=== PATIENT | female | born 1960 | race Caucasian/White ===

== ENCOUNTER → 2016-12-30 | Outpatient (CLI) | payer MEDICARE ==
[2016-12-30 17:30] LABS: ALBUMIN 3.5 GM/DL (3.2-5.2); ALBUMIN/GLOBULIN RATIO 1.06 (1.00-1.93); BILIRUBIN,TOTAL 0.3 MG/DL (0.2-1.0); CALCIUM LEVEL 8.7 MG/DL (8.5-10.1); CREATININE FOR GFR 1.13 MG/DL (0.55-1.02); FREE T4 1.05 NG/DL (0.76-1.46); GLOMERULAR FILTRATION RATE 52.6 (>51); POTASSIUM SERUM 4.5 MEQ/L (3.5-5.1); TOTAL PROTEIN 6.8 GM/DL (6.4-8.2)
== END ==
LOC: M WUC 11:45
PROVIDERS: ATTEND Family Medicine
DX: I10 Essential (primary) hypertension (principal); R73.01 Impaired fasting glucose; M47.816 Spondylosis without myelopathy or radiculopathy, lumbar region

== ENCOUNTER → 2017-05-17 | Outpatient (CLI) | payer MEDICARE ==
--- NOTE | 2017-05-17 16:18 | REPMRS ---
Patient History The patient states she has not had a clinical breast exam in over a year. Patient is postmenopausal and is nulliparous. Family history of breast cancer in mother at age 65 and colorectal cancer in maternal grandmother at age 50 or over. Benign excisional biopsy of the left breast, October 28, 1998. Digital Woman Screen Mammo: May 17, 2017 - Exam #: [id number] Bilateral CC and MLO view(s) were taken. Technologist: Melisa Figueroa, Technologist Prior study comparison: May 26, 2016, digital woman screen mammo performed at [facility] [address] [facility]. June 01, 2015, digital woman screen mammo performed at [facility] [address] to [facility]. FINDINGS: There are scattered fibroglandular densities. There has been no change in the appearance of the mammogram from the prior studies. There is a mild amount of residual fibroglandular tissue which is fairly symmetric. There is no interval development of dominant mass, architectural distortion, or clustered microcalcification suggestive of malignancy. ASSESSMENT: BI-RADS/ACR category 1 mammogram. Negative. Recommendation Routine screening mammogram in 1 year (for women over age 40). This mammogram was interpreted with the aid of an FDA-approved computer-aided dectection system. Electronically Signed By: Ashwin Chapin MD 05/17/17 [id number]
== END ==
LOC: M WHC 14:26
PROVIDERS: ATTEND Family Medicine
DX: Z12.31 Encounter for screening mammogram for malignant neoplasm of breast (principal)

== ENCOUNTER → 2017-05-22 | Outpatient (CLI) | payer MEDICARE ==
[2017-05-22 13:12] LABS: BASO % 0.5 % (0.0-1.0); EOS # 0.1 K/mm3 (0.0-0.50); EOS % 0.6 % (0.0-3.0); LARGE UNSTAINED CELL # 0.1 K/mm3 (0.0-0.4); LARGE UNSTAINED CELL % 1.1 % (0.0-4.0); LYMPH # 2.7 K/mm3 (1.5-4.5); LYMPH % 24.6 % (24.0-44.0); MEAN CORPUSCULAR VOLUME 90.8 fl (80.0-96.0); MONO # 0.6 K/mm3 (0.0-0.8); MONO % 5.8 % (0.0-5.0); NEUTROPHILS # 7.1 K/mm3 (1.8-7.7); NEUTROPHILS % 67.4 % (36.0-66.0); PLATELET COUNT, AUTOMATED 308 k/mm3 (150-450); RED CELL DISTRIBUTION WIDTH 13.9 % (11.5-14.5); WHITE BLOOD COUNT 10.5 K/mm3 (4.0-10.0)
[2017-05-22 14:00] LABS: ALBUMIN 3.5 GM/DL (3.2-5.2); ALBUMIN/GLOBULIN RATIO 1.03 (1.00-1.93); BILIRUBIN,TOTAL 0.3 MG/DL (0.2-1.0); CREATININE FOR GFR 1.01 MG/DL (0.55-1.02); GLOMERULAR FILTRATION RATE 59.9 (>51); POTASSIUM SERUM 4.4 MEQ/L (3.5-5.1); TOTAL PROTEIN 6.9 GM/DL (6.4-8.2)
== END ==
LOC: M WUC 10:58
PROVIDERS: ATTEND Family Medicine
DX: N18.2 Chronic kidney disease, stage 2 (mild) (principal); R73.01 Impaired fasting glucose; E55.9 Vitamin D deficiency, unspecified

== ENCOUNTER → 2017-05-29 | Outpatient (REF) | payer MEDICARE ==
[2017-05-29 19:37] LABS: ALBUMIN 3.8 GM/DL (3.2-5.2); ALBUMIN/GLOBULIN RATIO 1.23 (1.00-1.93); ALKALINE PHOSPHATASE 66 U/L (45-117); ALT/SGPT 23 U/L (12-78); ANION GAP 8 MEQ/L (8-16); AST/SGOT 11 U/L (15-37); BILIRUBIN,TOTAL 0.4 MG/DL (0.2-1.0); BLOOD UREA NITROGEN 15 MG/DL (7-18); CALCIUM LEVEL 9.4 MG/DL (8.5-10.1); CARBON DIOXIDE LEVEL 27 MEQ/L (21-32); CHLORIDE LEVEL 104 MEQ/L (98-107); CHOLESTEROL LEVEL 204 MG/DL (<200); CREATININE FOR GFR 1.06 MG/DL (0.55-1.02); GLOMERULAR FILTRATION RATE 56.7 (>51); GLUCOSE, FASTING 86 MG/DL (70-105); POTASSIUM SERUM 4.7 MEQ/L (3.5-5.1); SODIUM LEVEL 139 MEQ/L (136-145); TOTAL PROTEIN 6.9 GM/DL (6.4-8.2); TRIGLYCERIDES LEVEL 388 MG/DL (<150)
[2017-06-07 10:22] LABS: Codeine Negative (.); Hydrocodone 10.4 ng/mL (.); Hydromorphone Negative (.); Morphine Negative (.)
== END ==
LOC: M SFHCPLAZ 14:42
PROVIDERS: ATTEND Family Medicine
DX: E78.5 Hyperlipidemia, unspecified (principal); R73.01 Impaired fasting glucose; E55.9 Vitamin D deficiency, unspecified; M17.0 Bilateral primary osteoarthritis of knee; M47.816 Spondylosis without myelopathy or radiculopathy, lumbar region
CPT/HCPCS: 36415; 80053; 80061; 80307; 82306; 82550; 83970; 86140; 86803; 87899; G0463

== ENCOUNTER → 2017-06-05 | Outpatient (CLI) | payer MEDICARE ==
--- NOTE | 2017-06-05 14:56 | REP ---
BILATERAL KNEE, SIX VIEWS: HISTORY: Osteoarthritis. RIGHT KNEE, THREE VIEWS: There is no acute fracture or dislocation. There is narrowing of the joint spaces with associated osteophyte formation. Ossified density is present in the joint space consistent with loose bodies. IMPRESSION: Degenerative change as described above. LEFT KNEE, THREE VIEWS: There is no acute fracture or dislocation. There is narrowing of the joint spaces with associated osteophyte formation. IMPRESSION: Degenerative change as described above. Signed by Steven Henriquez MD 06/05/2017 03:02 P
--- NOTE | 2017-06-05 15:00 | REP ---
BILATERAL KNEES STANDING, TWO VIEWS: COMPARISON: 06/05/2017 There is narrowing of the knee joint space with associated osteophyte formation. Ossified density is present in the joint space consistent with a loose body. There is further narrowing of the medial knee joint space with standing. Left knee, one view: There is narrowing of the knee joint space with associated osteophyte formation. There is further narrowing of the medial knee joint space with standing. IMPRESSION: Degenerative change as described above. Signed by Steven Henriquez MD 06/05/2017 03:02 P
--- NOTE | 2017-06-05 15:10 | REP ---
Right wrist series: Four views. History: Osteoarthritis. Right wrist pain. Findings: Four views of the right wrist demonstrate overall normal mineralization. There is minimal radiocarpal and first carpal-metacarpal spurring. Lateral view shows dystrophic soft-tissue calcification at the volar aspect of the radiocarpal articulation. No erosive changes seen. No fracture is noted. Impression: Mild radiocarpal osteoarthritis with some dystrophic calcification at the volar aspect of the radiocarpal joint. No fracture or erosive change seen. Signed by Noel Hills MD 06/05/2017 03:51 P
== END ==
LOC: M WUC 14:01
PROVIDERS: ATTEND Family Medicine
DX: M19.90 Unspecified osteoarthritis, unspecified site (principal)

== ENCOUNTER → 2017-09-22 | Outpatient (CLI) | payer MEDICARE ==
[2017-09-22 13:44] LABS: BASO # 0.1 10^3/uL (0.0-0.2); BASO % 0.6 % (0.0-1.0); EOS # 0.2 10^3/uL (0.0-0.50); EOS % 2.1 % (0.0-3.0); IMMATURE GRANULOCYTE % 0.4 % (0-0); LYMPH # 2.9 10^3/uL (1.5-4.5); LYMPH % 36.2 % (24.0-44.0); MEAN CORPUSCULAR HEMOGLOBIN 28.8 pg (27.0-33.0); MEAN CORPUSCULAR HGB CONC 31.9 g/dl (32.0-36.5); MEAN CORPUSCULAR VOLUME 90.2 fl (80.0-96.0); MONO # 0.7 10^3/uL (0.0-0.8); MONO % 8.3 % (0.0-5.0); NEUTROPHILS # 4.1 10^3/uL (1.8-7.7); NEUTROPHILS % 52.4 % (36.0-66.0); PLATELET COUNT, AUTOMATED 278 10^3/uL (150-450); RED CELL DISTRIBUTION WIDTH 13.8 % (11.5-14.5); WHITE BLOOD COUNT 7.9 10^3/uL (4.0-10.0)
[2017-09-22 13:57] LABS: ALBUMIN 3.5 GM/DL (3.2-5.2); ALBUMIN/GLOBULIN RATIO 1.03 (1.00-1.93); ALKALINE PHOSPHATASE 62 U/L (45-117); ALT/SGPT 20 U/L (12-78); ANION GAP 4 MEQ/L (8-16); AST/SGOT 11 U/L (15-37); BILIRUBIN,TOTAL 0.3 MG/DL (0.2-1.0); BLOOD UREA NITROGEN 15 MG/DL (7-18); CALCIUM LEVEL 9.2 MG/DL (8.5-10.1); CARBON DIOXIDE LEVEL 32 MEQ/L (21-32); CHLORIDE LEVEL 105 MEQ/L (98-107); CREATININE FOR GFR 0.99 MG/DL (0.55-1.02); GLOMERULAR FILTRATION RATE > 60.0 (>51); GLUCOSE, FASTING 89 MG/DL (70-105); POTASSIUM SERUM 4.7 MEQ/L (3.5-5.1); SODIUM LEVEL 141 MEQ/L (136-145); TOTAL PROTEIN 6.9 GM/DL (6.4-8.2)
== END ==
LOC: M WUC 12:22
PROVIDERS: ATTEND Family Medicine
DX: I12.9 Hypertensive chronic kidney disease with stage 1 through stage 4 chronic kidney disease, or unspecified chronic kidney disease (principal); E78.5 Hyperlipidemia, unspecified; N18.2 Chronic kidney disease, stage 2 (mild); R73.01 Impaired fasting glucose

== ENCOUNTER → 2017-10-17 | Outpatient (CLI) | payer MEDICARE ==
--- NOTE | 2017-10-17 15:41 | REP ---
MRI lumbar spine without contrast: History: Low back and bilateral leg pain, right side greater. Degenerative joint disease. Comparison MRI study is from February 13, 2010. This prior study showed disc herniations at L3-4 and L4-5 with moderate canal stenosis at L3-4 and neural foraminal narrowing at L4-5. Technique: Sagittal and axial T1 and T2-weighted scans are acquired in the usual fashion with and without fat saturation. Sequences include spin echo, turbo spin-echo, and STIR imaging sequences. Due to the pain and claustrophobia, the patient was unable to tolerate the completion of the exam and we were not able to get axial T2-weighted images. There is incomplete coverage of the L3-4 disc on the axial T1-weighted sequence. MRI findings: Lumbar vertebral body heights are preserved. Alignment is normal. There is no evidence of spondylolysis or spondylolisthesis. There are diffuse degenerative disc changes. These are most pronounced at L4-5. At L3-4, there is diffuse posterior disc bulging without thecal sac compression on sagittal images. Prior study showed a disc protrusion at this level, which appears to have largely resolved. There is still some central disc bulging. There is no neural foraminal narrowing. At L4-5, there is a persistent right paracentral disc protrusion with diffuse bulging of the remainder of the disc. There is bilateral neural foraminal stenosis at L4-5 due to disc bulging and facet osteoarthritic spurring. This is a little more prominent than on the prior study. The disc protrusion appears to be unchanged. No significant central canal stenosis. At L5-S1, there is no significant finding. The L2-3 and L1-2 level show borderline canal size developmentally, but no focal disc protrusion is appreciated. These findings are unchanged. Impression: Improvement noted at the L3-4 level where prior study showed a fairly sizable disc protrusion. This is largely resolved with some residual disc bulging. Persistent disc protrusion at L4-5, unchanged. Bilateral L4-5 neural foraminal narrowing, more pronounced. Developmentally somewhat small canal at L1-2 and L2-3, unchanged. Signed by Noel Hills MD 10/17/2017 03:47 P
== END ==
LOC: M RAD 09:59
PROVIDERS: ATTEND Family Medicine
DX: M47.816 Spondylosis without myelopathy or radiculopathy, lumbar region (principal)

== ENCOUNTER → 2018-01-23 | Outpatient (CLI) | payer MEDICARE ==
[2018-01-23 17:37] LABS: BASO # 0.1 10^3/uL (0.0-0.2); BASO % 0.7 % (0.0-1.0); EOS # 0.1 10^3/uL (0.0-0.50); EOS % 1.8 % (0.0-3.0); HEMATOCRIT 44.2 % (36.0-47.0); HEMOGLOBIN 13.9 g/dl (12.0-16.0); IMMATURE GRANULOCYTE % 0.3 % (0-3.0); LYMPH # 2.6 10^3/uL (1.5-4.5); LYMPH % 38.2 % (24.0-44.0); MEAN CORPUSCULAR HEMOGLOBIN 27.9 pg (27.0-33.0); MEAN CORPUSCULAR HGB CONC 31.4 g/dl (32.0-36.5); MEAN CORPUSCULAR VOLUME 88.8 fl (80.0-96.0); MONO # 0.5 10^3/uL (0.0-0.8); MONO % 7.8 % (0.0-5.0); NEUTROPHILS # 3.5 10^3/uL (1.8-7.7); NEUTROPHILS % 51.2 % (36.0-66.0); PLATELET COUNT, AUTOMATED 294 10^3/uL (150-450); RED BLOOD COUNT 4.98 10^6/uL (4.00-5.40); RED CELL DISTRIBUTION WIDTH 14.5 % (11.5-14.5); WHITE BLOOD COUNT 6.8 10^3/uL (4.0-10.0)
[2018-01-23 17:58] LABS: ALBUMIN/GLOBULIN RATIO 1.29 (1.00-1.93); ALKALINE PHOSPHATASE 64 U/L (45-117); ALT/SGPT 21 U/L (12-78); ANION GAP 8 MEQ/L (8-16); AST/SGOT 14 U/L (7-37); BILIRUBIN,TOTAL 0.3 MG/DL (0.2-1.0); BLOOD UREA NITROGEN 15 MG/DL (7-18); CALCIUM LEVEL 8.9 MG/DL (8.5-10.1); CARBON DIOXIDE LEVEL 30 MEQ/L (21-32); CHLORIDE LEVEL 105 MEQ/L (98-107); CREATININE FOR GFR 0.96 MG/DL (0.55-1.30); GLOMERULAR FILTRATION RATE > 60.0 (>51); GLUCOSE, FASTING 89 MG/DL (70-100); PHOSPHORUS LEVEL 3.4 MG/DL (2.5-4.9); SODIUM LEVEL 143 MEQ/L (136-145); TOTAL PROTEIN 7.1 GM/DL (6.4-8.2)
[2018-01-23 18:06] LABS: PTH INTACT 65.8 PG/ML (18.5-88.0); TOTAL 25(OH) VITAMIN D 30.9 NG/ML (30.0-100.0)
[2018-01-23 21:42] LABS: ESTIMATED AVERAGE GLUCOSE 123 MG/DL (60-110); HEMOGLOBIN A1c 5.9 %
[2018-01-25 14:57] LABS: INSULIN LEVEL 35.4 uIU/mL (2.6-24.9)
== END ==
LOC: M WUC 12:03
DX: E55.9 Vitamin D deficiency, unspecified (principal); N18.2 Chronic kidney disease, stage 2 (mild); R73.01 Impaired fasting glucose
CPT/HCPCS: 83525

== ENCOUNTER → 2018-05-18 | Outpatient (CLI) | payer OTHER | LOC: M WHC 12:57 | DX: Z12.31 Encounter for screening mammogram for malignant neoplasm of breast (principal) | CPT/HCPCS: 77067 ==

== ENCOUNTER → 2018-06-14 | Outpatient (REF) | payer OTHER ==
[2018-06-14 18:03] LABS: BASO # 0.1 10^3/uL (0.0-0.2); BASO % 0.5 % (0.0-1.0); EOS # 0.2 10^3/uL (0.0-0.50); EOS % 2.6 % (0.0-3.0); HEMATOCRIT 44.1 % (36.0-47.0); HEMOGLOBIN 14.4 g/dl (12.0-15.5); IMMATURE GRANULOCYTE % 0.5 % (0-3.0); LYMPH # 2.9 10^3/uL (1.5-4.5); LYMPH % 31.6 % (24.0-44.0); MEAN CORPUSCULAR HEMOGLOBIN 29.3 pg (27.0-33.0); MEAN CORPUSCULAR HGB CONC 32.7 g/dl (32.0-36.5); MEAN CORPUSCULAR VOLUME 89.8 fl (80.0-96.0); MONO # 0.7 10^3/uL (0.0-0.8); MONO % 7.2 % (0.0-5.0); NEUTROPHILS # 5.3 10^3/uL (1.8-7.7); NEUTROPHILS % 57.6 % (36.0-66.0); PLATELET COUNT, AUTOMATED 266 10^3/uL (150-450); RED BLOOD COUNT 4.91 10^6/uL (4.00-5.40); RED CELL DISTRIBUTION WIDTH 14.4 % (11.5-14.5); RETIC HEMOGLOBIN EQUIVALENT 33.9 pg (24-36); RETICULOCYTE # 87.9 10^9/L (17-77); RETICULOCYTE % 1.8 % (0.5-1.5); WHITE BLOOD COUNT 9.2 10^3/uL (4.0-10.0)
[2018-06-14 18:16] LABS: ALBUMIN 3.7 GM/DL (3.2-5.2); ALBUMIN/GLOBULIN RATIO 1.19 (1.00-1.93); ALKALINE PHOSPHATASE 69 U/L (45-117); ALT/SGPT 28 U/L (12-78); ANION GAP 7 MEQ/L (8-16); AST/SGOT 13 U/L (7-37); BILIRUBIN,TOTAL 0.4 MG/DL (0.2-1.0); BLOOD UREA NITROGEN 17 MG/DL (7-18); C REACTIVE PROTEIN QUANTITATIV < 0.30 MG/DL (0.00-0.30); CALCIUM LEVEL 8.7 MG/DL (8.5-10.1); CARBON DIOXIDE LEVEL 26 MEQ/L (21-32); CHLORIDE LEVEL 108 MEQ/L (98-107); CHOLESTEROL LEVEL 164 MG/DL (<200); CHOLESTEROL RISK RATIO 3.565 (<5); CPK CREATINE PHOSPHOKINASE 95 U/L (26-192); CREATININE FOR GFR 0.93 MG/DL (0.55-1.30); GLOMERULAR FILTRATION RATE > 60.0 (>51); GLUCOSE, FASTING 105 MG/DL (70-100); HDL CHOLESTEROL 46 MG/DL (>40); NON-HDL-C 118 MG/DL; POTASSIUM SERUM 4.3 MEQ/L (3.5-5.1); SODIUM LEVEL 141 MEQ/L (136-145); TOTAL PROTEIN 6.8 GM/DL (6.4-8.2); TRIGLYCERIDES LEVEL 416 MG/DL (<150)
[2018-06-14 18:18] LABS: ESTIMATED AVERAGE GLUCOSE 120 MG/DL (60-110); HEMOGLOBIN A1c 5.8 %
[2018-06-14 19:16] LABS: VITAMIN B12 LEVEL 271 PG/ML (247-911)
[2018-06-18 14:14] LABS: OXYCODONE SCREEN Negative ng/mL (Cutoff:5)
== END ==
LOC: M SFHCPLAZ 15:03
DX: R73.01 Impaired fasting glucose (principal); E78.5 Hyperlipidemia, unspecified; N18.2 Chronic kidney disease, stage 2 (mild); M17.0 Bilateral primary osteoarthritis of knee; M47.816 Spondylosis without myelopathy or radiculopathy, lumbar region
CPT/HCPCS: 82550

== ENCOUNTER → 2018-09-10 | Outpatient (CLI) | payer OTHER | LOC: M PAIN 10:00 | DX: M47.816 Spondylosis without myelopathy or radiculopathy, lumbar region (principal); M79.7 Fibromyalgia; E78.5 Hyperlipidemia, unspecified; N18.2 Chronic kidney disease, stage 2 (mild); J45.909 Unspecified asthma, uncomplicated; K21.9 Gastro-esophageal reflux disease without esophagitis; R73.01 Impaired fasting glucose; M17.0 Bilateral primary osteoarthritis of knee; F41.9 Anxiety disorder, unspecified; F17.210 Nicotine dependence, cigarettes, uncomplicated; Z79.82 Long term (current) use of aspirin; Z79.84 Long term (current) use of oral hypoglycemic drugs; Z79.899 Other long term (current) drug therapy; Z88.8 Allergy status to other drugs, medicaments and biological substances; Z86.79 Personal history of other diseases of the circulatory system | CPT/HCPCS: G0463 ==

== ENCOUNTER → 2018-10-29 | Outpatient (CLI) | payer OTHER | LOC: M PAIN 11:00 | DX: M47.816 Spondylosis without myelopathy or radiculopathy, lumbar region (principal); M79.7 Fibromyalgia; E78.5 Hyperlipidemia, unspecified; J45.909 Unspecified asthma, uncomplicated; E11.22 Type 2 diabetes mellitus with diabetic chronic kidney disease; I12.9 Hypertensive chronic kidney disease with stage 1 through stage 4 chronic kidney disease, or unspecified chronic kidney disease; N18.2 Chronic kidney disease, stage 2 (mild); M17.0 Bilateral primary osteoarthritis of knee; F41.9 Anxiety disorder, unspecified; F17.200 Nicotine dependence, unspecified, uncomplicated; E66.01 Morbid (severe) obesity due to excess calories; Z68.44 Body mass index [BMI] 60.0-69.9, adult; Z79.82 Long term (current) use of aspirin; Z79.84 Long term (current) use of oral hypoglycemic drugs; Z79.899 Other long term (current) drug therapy; Z88.8 Allergy status to other drugs, medicaments and biological substances; Z86.79 Personal history of other diseases of the circulatory system | CPT/HCPCS: G0463 ==

== ENCOUNTER → 2018-11-02 | Outpatient (REF) | payer OTHER ==
[2018-11-02 18:09] LABS: BASO % 0.3 % (0.0-1.0); EOS # 0.1 10^3/uL (0.0-0.50); EOS % 0.7 % (0.0-3.0); HEMATOCRIT 46.1 % (36.0-47.0); HEMOGLOBIN 14.9 g/dl (12.0-15.5); LYMPH # 2.7 10^3/uL (1.5-4.5); MEAN CORPUSCULAR HEMOGLOBIN 29.7 pg (27.0-33.0); MEAN CORPUSCULAR HGB CONC 32.3 g/dl (32.0-36.5); MEAN CORPUSCULAR VOLUME 91.8 fl (80.0-96.0); MONO # 0.6 10^3/uL (0.0-0.8); MONO % 5.2 % (0.0-5.0); NEUTROPHILS # 8.7 10^3/uL (1.8-7.7); NEUTROPHILS % 71.3 % (36.0-66.0); PLATELET COUNT, AUTOMATED 304 10^3/uL (150-450); RED BLOOD COUNT 5.02 10^6/uL (4.00-5.40); WHITE BLOOD COUNT 12.2 10^3/uL (4.0-10.0)
[2018-11-02 18:32] LABS: ALBUMIN 3.9 GM/DL (3.2-5.2); ALT/SGPT 22 U/L (12-78); BILIRUBIN,TOTAL 0.4 MG/DL (0.2-1.0); BLOOD UREA NITROGEN 19 MG/DL (7-18); CALCIUM LEVEL 8.9 MG/DL (8.8-10.2); CARBON DIOXIDE LEVEL 28 MEQ/L (21-32); CHLORIDE LEVEL 102 MEQ/L (98-107); CHOLESTEROL LEVEL 185 MG/DL (<200); CHOLESTEROL RISK RATIO 2.761 (<5); CREATININE FOR GFR 0.88 MG/DL (0.55-1.30); FREE T4 1.09 NG/DL (0.76-1.46); GLOMERULAR FILTRATION RATE > 60.0 (>45); GLUCOSE, FASTING 92 MG/DL (70-100); HDL CHOLESTEROL 67 MG/DL (>40); LDL CHOLESTEROL 71 MG/DL (<100); MAGNESIUM LEVEL 2.1 MG/DL (1.8-2.4); NON-HDL-C 118 MG/DL; POTASSIUM SERUM 4.8 MEQ/L (3.5-5.1); SODIUM LEVEL 140 MEQ/L (136-145); THYROID STIMULATING HORMONE 0.754 uIU/ML (0.358-3.740); TOTAL PROTEIN 6.8 GM/DL (6.4-8.2); TRIGLYCERIDES LEVEL 236 MG/DL (<150)
[2018-11-02 18:34] LABS: VITAMIN B12 LEVEL 529 PG/ML (247-911)
[2018-11-02 18:45] LABS: HEMOGLOBIN A1c 6.1 %
[2018-11-02 18:58] LABS: HEMATOCRIT 46.1 % (36.0-47.0)
== END ==
LOC: M SFHCPLAZ 16:02
PROVIDERS: ATTEND Family Medicine
DX: E53.8 Deficiency of other specified B group vitamins (principal); I10 Essential (primary) hypertension; R73.01 Impaired fasting glucose; E78.5 Hyperlipidemia, unspecified
CPT/HCPCS: 36415; 80053; 80061; 82607; 82747; 83036; 83735; 84439; 84443; 85025; G0463

== ENCOUNTER → 2019-04-11 | Outpatient (REF) | payer MEDICARE ==
[2019-04-11 17:13] LABS: BASO # 0.1 10^3/uL (0.0-0.2); BASO % 0.6 % (0.0-1.0); EOS # 0.3 10^3/uL (0.0-0.50); EOS % 3.8 % (0.0-3.0); HEMATOCRIT 44.8 % (36.0-47.0); HEMOGLOBIN 14.5 g/dl (12.0-15.5); LYMPH # 2.9 10^3/uL (1.5-4.5); LYMPH % 37.4 % (24.0-44.0); MEAN CORPUSCULAR HEMOGLOBIN 28.6 pg (27.0-33.0); MEAN CORPUSCULAR HGB CONC 32.4 g/dl (32.0-36.5); MEAN CORPUSCULAR VOLUME 88.4 fl (80.0-96.0); MONO # 0.6 10^3/uL (0.0-0.8); MONO % 7.1 % (0.0-5.0); NEUTROPHILS # 3.9 10^3/uL (1.8-7.7); NEUTROPHILS % 50.8 % (36.0-66.0); PLATELET COUNT, AUTOMATED 283 10^3/uL (150-450); RED BLOOD COUNT 5.07 10^6/uL (4.00-5.40); WHITE BLOOD COUNT 7.7 10^3/uL (4.0-10.0)
[2019-04-11 19:07] LABS: ALBUMIN 3.6 GM/DL (3.2-5.2); ALT/SGPT 19 U/L (12-78); BILIRUBIN,TOTAL 0.5 MG/DL (0.2-1.0); BLOOD UREA NITROGEN 10 MG/DL (7-18); CALCIUM LEVEL 8.9 MG/DL (8.8-10.2); CARBON DIOXIDE LEVEL 25 MEQ/L (21-32); CHLORIDE LEVEL 104 MEQ/L (98-107); CREATININE FOR GFR 0.94 MG/DL (0.55-1.30); GLOMERULAR FILTRATION RATE > 60.0 (>45); GLUCOSE, FASTING 83 MG/DL (70-100); MAGNESIUM LEVEL 2.1 MG/DL (1.8-2.4); POTASSIUM SERUM 4.2 MEQ/L (3.5-5.1); SODIUM LEVEL 140 MEQ/L (136-145); TOTAL PROTEIN 7.3 GM/DL (6.4-8.2)
[2019-04-11 19:16] LABS: HEMOGLOBIN A1c 5.9 %
== END ==
LOC: M SFHCPLAZ 16:11
PROVIDERS: ATTEND Family Medicine
DX: N18.2 Chronic kidney disease, stage 2 (mild) (principal); R73.01 Impaired fasting glucose; E53.8 Deficiency of other specified B group vitamins
CPT/HCPCS: 80053; 83036; 83735; 85025; G0463

== ENCOUNTER → 2019-04-25 | Outpatient (CLI) | payer MEDICARE ==
[2019-04-25 17:37] LABS: APPEARANCE, URINE CLOUDY (CLEAR); BACTERIA, URINE AUTO NEGATIVE (NEGATIVE); BILIRUBIN, URINE AUTO NEGATIVE (NEGATIVE); BLOOD, URINE BLOOD NEGATIVE (NEGATIVE); COLOR, URINE YELLOW (YELLOW); GLUCOSE, URINE (UA) AUTO NEGATIVE (NEGATIVE); KETONE, URINE AUTO TRACE mg/dL (NEGATIVE); LEUKOCYTE ESTERASE, URINE AUTO 3+ (NEGATIVE); MUCUS, URINE SMALL (NEGATIVE); NITRITE, URINE AUTO NEGATIVE (NEGATIVE); PROTEIN, URINE AUTO NEGATIVE (NEGATIVE); RBC, URINE AUTO 6 /HPF (0-3); SPECIFIC GRAVITY URINE AUTO 1.018 (1.002-1.035); SQUAMOUS EPITHELIAL CELL UR AU 17 /HPF (0-6); WBC, URINE AUTO 13 /HPF (0-3)
[2019-04-25 17:48] LABS: MALB URINE SIEMENS 50.3 MG/L; MAU/CREAT RATIO 27.3 MCG/MG (0.0-30.0)
== END ==
LOC: M WUC 14:36
PROVIDERS: ATTEND Family Medicine
DX: R73.01 Impaired fasting glucose (principal); E53.8 Deficiency of other specified B group vitamins; M18.2 Bilateral post-traumatic osteoarthritis of first carpometacarpal joints
CPT/HCPCS: 36415; 81001; 82043; 84600; G0480

== ENCOUNTER 2019-05-19 12:57 | Emergency (ER) | payer MEDICARE ==
[~2019-05-19] VITALS: Ht 167.6 cm; Wt 172.7 kg
--- NOTE | 2019-05-19 14:12 | REP ---
AP pelvis and left hip: AP pelvis single view: There is no pelvic fracture. The sacroiliac articulations are unremarkable. The hip articulations are unremarkable. There is a calcification inferiorly on the left, likely a phlebolith. Impression: Pelvic calcification, otherwise negative AP pelvis. Left hip two views: There is no fracture or dislocation. There is no joint space narrowing. Mineralization is normal. No calcifications or foreign bodies. Impression: Negative left hip. If symptoms persist or worsen, consider MRI. Electronically Signed by Ashwin Keller MD 05/19/2019 02:03 P
[2019-05-19] MEDS ORDERED: LISI-538 PO (14:17)
[2019-05-19] MEDS ORDERED: OMEP-218 PO (14:17)
[2019-05-19] MEDS ORDERED: ROSU40TA3 PO (14:17)
[2019-05-19] MEDS ORDERED: CHLO125TA PO (14:17)
[2019-05-19] MEDS ORDERED: NAPR-885 OR (14:17)
[2019-05-19] MEDS ORDERED: METF500T13 PO (14:17)
[2019-05-19] MEDS ORDERED: FLUO20CA19 OR (14:17)
[2019-05-19] MEDS ORDERED: BUPR1SUB33 SL (14:17)
[2019-05-19] MEDS ORDERED: TRAZ-163 PO (14:17)
[2019-05-19] MEDS ORDERED: VENTAER INH (14:17)
[2019-05-19] MEDS ORDERED: BAYE325T16 PO (14:18)
[2019-05-19] MEDS ORDERED: LIDOCAINE 5% (LIDODERM) PATCH TD ONE (15:15)
[2019-05-19] MEDS ORDERED: LIDO5DIS41 TD (15:15)
[2019-05-19 15:21] VITALS: BP 118/55
[2019-05-19] MEDS ORDERED: **NOTE PATIENT COMMENT** MISC XX SCH (21:00)
== END 2019-05-19 15:29 | disposition home or self-care (01) ==
LOC: M ED 12:57
DX: S76.212A Strain of adductor muscle, fascia and tendon of left thigh, initial encounter (principal); Y92.9 Unspecified place or not applicable; Y93.9 Activity, unspecified; G89.29 Other chronic pain; E78.5 Hyperlipidemia, unspecified; E11.9 Type 2 diabetes mellitus without complications; J45.909 Unspecified asthma, uncomplicated; K21.9 Gastro-esophageal reflux disease without esophagitis; Z79.51 Long term (current) use of inhaled steroids; Z79.82 Long term (current) use of aspirin; Z79.84 Long term (current) use of oral hypoglycemic drugs; Z79.899 Other long term (current) drug therapy

== ENCOUNTER 2019-05-24 15:13 | Emergency (ER) | payer MEDICARE ==
[~2019-05-24 15:13] MED LIST: BAYE325T16 PO; BUPR1SUB33 SL; CHLO125TA PO; FLUO20CA19 OR; LIDO5DIS41 TD; LISI-538 PO; METF500T13 PO; NAPR-885 OR; OMEP-218 PO; ROSU40TA4 PO; TRAZ-257 PO; VENTAER INH
[2019-05-24] MEDS ORDERED: diazePAM 10 MG TAB PO ONE (15:30)
[2019-05-24] MEDS ORDERED: KETOROLAC 60 MG/2 ML VIAL (J1885) IM ONE (15:30)
[2019-05-24] MEDS ORDERED: SOMA350T PO (17:12)
[2019-05-24] MEDS ORDERED: LOTRCRE TOP (17:12)
[2019-05-24 17:31] VITALS: BP 133/72
[2019-05-25] MEDS ORDERED: CYCL10TA PO (22:45)
[2019-05-25] MEDS ORDERED: CARI1TAB7 PO (22:45)
[2019-05-25] MEDS ORDERED: FLUO20CA20 PO (22:45)
[2019-05-25] MEDS ORDERED: LOTRCRE TOP (22:45)
[2019-05-25] MEDS ORDERED: NAPR-885 PO (22:45)
[2019-05-25] MEDS ORDERED: LIDO1PAD TOP (22:45)
== END 2019-05-24 17:32 | disposition home or self-care (01) ==
LOC: EDBD 15:13 → M ED 15:13
DX: M54.42 Lumbago with sciatica, left side (principal); B37.9 Candidiasis, unspecified; I10 Essential (primary) hypertension; E11.9 Type 2 diabetes mellitus without complications; J45.909 Unspecified asthma, uncomplicated; K21.9 Gastro-esophageal reflux disease without esophagitis; Z88.1 Allergy status to other antibiotic agents; Z91.81 History of falling; Z79.899 Other long term (current) drug therapy; Z79.84 Long term (current) use of oral hypoglycemic drugs; Z79.82 Long term (current) use of aspirin

== ENCOUNTER 2019-05-25 21:10 | Inpatient (IN) | payer MEDICARE ==
[~2019-05-25] VITALS: Ht 165.1 cm; Wt 179.4 kg
[~2019-05-25 21:10] MED LIST changes: +LOTRCRE TOP; +ROSUVASTATIN 10 MG TAB (CRESTOR) PO SCH; +SOMA350T PO; +TRAZ-163 PO; -TRAZ-257 PO
[2019-05-25] MEDS ORDERED: dexameTHASONE 4 MG/ML 1ML VIAL (J1100) IV ONE (22:15)
[2019-05-25] MEDS ORDERED: diazePAM 5 MG TAB PO ONE (22:15)
[2019-05-25] MEDS ORDERED: KETOROLAC 30 MG/ML VIAL (J1885) IV ONE (22:15)
[2019-05-25] MEDS ORDERED: LIDOCAINE 5% (LIDODERM) PATCH TD ONE (22:15)
[2019-05-25 22:17] LABS: HEMATOCRIT 35.3 % (36.0-47.0); HEMOGLOBIN 11.5 g/dl (12.0-15.5); MEAN CORPUSCULAR HEMOGLOBIN 28.9 pg (27.0-33.0); MEAN CORPUSCULAR HGB CONC 32.6 g/dl (32.0-36.5); MEAN CORPUSCULAR VOLUME 88.7 fl (80.0-96.0); PLATELET COUNT, AUTOMATED 274 10^3/uL (150-450); RED BLOOD COUNT 3.98 10^6/uL (4.00-5.40); WHITE BLOOD COUNT 26.9 10^3/uL (4.0-10.0)
[2019-05-25] MEDS ORDERED: NAPR-885 PO (22:45)
[2019-05-25] MEDS ORDERED: LIDO1PAD TOP (22:45)
[2019-05-25] MEDS ORDERED: LOTRCRE TOP (22:45)
[2019-05-25] MEDS ORDERED: CARI1TAB7 PO (22:45)
[2019-05-25] MEDS ORDERED: FLUO20CA8 PO (22:45)
[2019-05-25] MEDS ORDERED: CYCL10TA PO (22:45)
[2019-05-25 22:56] LABS: ALBUMIN 2.7 GM/DL (3.2-5.2); ALT/SGPT 39 U/L (12-78); BILIRUBIN,DIRECT 0.4 MG/DL (0.0-0.2); BLOOD UREA NITROGEN 101 MG/DL (7-18); CARBON DIOXIDE LEVEL 21 MEQ/L (21-32); CHLORIDE LEVEL 100 MEQ/L (98-107); CK-MB VALUE MASS 17.8 NG/ML (<3.6); CPK CREATINE PHOSPHOKINASE 2920 U/L (26-192); CREATININE FOR GFR 7.34 MG/DL (0.55-1.30); GLUCOSE, FASTING 97 MG/DL (70-100); MB/CK RELATIVE INDEX 0.61 (< OR =4); NT-PRO BNP 2436 PG/ML (<125); POTASSIUM SERUM 6.7 MEQ/L (3.5-5.1); SODIUM LEVEL 132 MEQ/L (136-145); TOTAL PROTEIN 6.4 GM/DL (6.4-8.2); TROPONIN I < 0.02 NG/ML (< 0.10)
[2019-05-25] MEDS ORDERED: DEXTROSE 50% 50 ML SYRINGE IV STA (23:03)
--- NOTE | 2019-05-25 23:11 | REPVR ---
EXAM: CT Lumbar Spine Without Contrast EXAM DATE/TIME: 05/25/2019 10:40 PM CLINICAL HISTORY: 58 years old, female; Low back pain; Additional info: Back pain, unable to ambulate TECHNIQUE: Imaging protocol: Axial computed tomography images of the lumbar spine without intravenous contrast. Coronal and sagittal reformatted images were created and reviewed. Radiation optimization: All CT scans at this facility use at least one of these dose optimization techniques: automated exposure control; mA and/or kV adjustment per patient size (includes targeted exams where dose is matched to clinical indication); or iterative reconstruction. COMPARISON: MRI-Spine, L.S. without con 10/17/2017 11:01 AM FINDINGS: Vertebrae: No acute fracture. Normal alignment. L1-L2: Mild interspace narrowing minimal vacuum phenomenon. Significant posterior protrusion. Mild facet arthropathy no spinal or foraminal stenosis. L2-L3: Slight interspace narrowing with vacuum phenomenon and preservation of posterior concavity. There is moderate facet arthropathy with borderline spinal stenosis and borderline bilateral neural foraminal stenosis. L3-L4: Mild interspace narrowing with vacuum phenomenon and minimal diffuse bulge. There is moderately prominent facet arthropathy with mild secondary spinal stenosis borderline bilateral neural foraminal stenosis. L4-L5: Moderate interspace narrowing with vacuum phenomenon and central osteophytes. There is mild facet arthropathy with borderline spinal stenosis and mild bilateral neural foraminal stenosis, left greater than right. L5-S1: Prominent interspace narrowing with posterior osteophytes which are central and to the right and moderately prominent facet arthropathy. The spinal canal is low normal size with narrowing of the right lateral recess. There is mild bilateral neural foraminal stenosis. Sacrum/coccyx: Lumbarization of S1 with a small S1-S2 disc. Soft tissues: Unremarkable. Vasculature: There is mild calcification of the abdominal aorta with extension into the iliac arteries. IMPRESSION: 1. Lumbarization of S1 with S1-S2 disc. 2. Multilevel degenerative changes with varying degrees of spinal and neural foraminal stenosis as described. 3. No acute fracture or subluxation. Electronically signed by: Ji Rangel On 05/25/2019 23:11:18 PM
[2019-05-25] MEDS ORDERED: PIPERACILLIN/TAZOBACTAM SOD 2.25 GM in D5W MINI-BAG PLUS 50 ML IV ONE (23:15)
[2019-05-25] MEDS ORDERED: NS 1,000 ML IV ONE (23:15)
[2019-05-25] MEDS ORDERED: HumuLIN R (REGULAR) INSULIN (NovoLIN R) **100U/ML** PER UNIT IV ONE (23:15)
[2019-05-25] MEDS ORDERED: VANCOMYCIN HCL 1,000 MG, VIAL MATE ADAPTER 1 EACH in D5W 250 ML IV ONE (23:15)
[2019-05-25] MEDS ORDERED: ALBUTEROL SULFATE 2.5 MG/0.5 ML INH NEB SOLN NEB ONE (23:15)
[2019-05-25] MEDS ORDERED: CALCIUM GLUCONATE 1,000 MG in D5W MINI-BAG PLUS 100 ML IV ONE (23:15)
--- NOTE | 2019-05-25 23:22 | REPVR ---
EXAM: US Duplex Bilateral Lower Extremity Veins EXAM DATE/TIME: 05/25/2019 11:18 PM CLINICAL HISTORY: 58 years old, female; Pain; Leg, upper; Bilateral; Additional info: Swelling, pain, elev d-dimer TECHNIQUE: Imaging protocol: Real-time duplex ultrasound of the Bilateral Lower Extremities with 2-D way scale, color Doppler flow and spectral waveform analysis. Complete exam focused on the bilateral lower extremity veins. COMPARISON: No relevant prior studies available. FINDINGS: Right deep veins: Unremarkable. The common femoral, femoral, proximal profunda femoral and popliteal veins are patent without thrombus. Normal Doppler waveforms. Normal compressibility and/or augmentation response. Right superficial veins: Saphenofemoral junction is patent without thrombus. Left deep veins: Unremarkable. The common femoral, femoral, proximal profunda femoral and popliteal veins are patent without thrombus. Normal Doppler waveforms. Normal compressibility and/or augmentation response. Left superficial veins: Saphenofemoral junction is patent without thrombus. Soft tissues: Unremarkable. IMPRESSION: Negative bilateral lower extremity venous duplex exam without evidence of deep venous thrombosis. Electronically signed by: Ji Rangel On 05/25/2019 23:22:18 PM
[2019-05-25 23:34] LABS: ERYTHROCYTE SEDIMENTATION RATE 120 mm/hr (0-30)
[2019-05-25] MEDS ORDERED: SOD POLYSTYRENE SULFONATE SUSP 15 GM/60 ML UD PO ONE (23:45)
[2019-05-25 23:56] LABS: MYOGLOBIN SCREEN, URINE POSITIVE (NEGATIVE)
[2019-05-26] VITALS (11 sets, daily range): BP systolic 87–134; BP diastolic 44–61
[2019-05-26] MEDS ORDERED: CARISOPRODOL 350 MG TAB PO PRN (01:00)
[2019-05-26] MEDS ORDERED: CYCLOBENZAPRINE 10 MG TAB PO PRN (01:00)
[2019-05-26] MEDS ORDERED: IPRATROPIUM 0.5MG/ALBUTEROL 2.5MG INH SOL UD 3ML (DUONEB)(J7620) NEB PRN (01:00)
[2019-05-26] MEDS ORDERED: NS 1,000 ML IV ONE ×2 (01:15→02:15)
--- NOTE | 2019-05-26 01:21 | REPVR ---
EXAM: US Retroperitoneal Limited, Kidneys EXAM DATE/TIME: 05/26/2019 1:12 AM CLINICAL HISTORY: 58 years old, female; Abnormal findings; Abnormal lab test; Abnormal kidney function lab tests; Additional info: Arf TECHNIQUE: Imaging protocol: Real-time ultrasound of the retroperitoneum with image documentation. Examination was focused on the kidneys. COMPARISON: No relevant prior studies available. FINDINGS: Gallbladder: The gallbladder appears slightly distended. No gallstones are seen. Common bile duct: The CBD measures 5 mm. Right kidney: The right kidney measures 12.2 cm in its cephalocaudad dimension and 5.9 x 5.0 cm in diameter. No mass, cyst or hydronephrosis. Left kidney: The left kidney measures 12.8 cm in its cephalocaudad dimension and 7.2 x 5.2 cm in diameter. No mass, cyst or hydronephrosis. Some renal sinus lipomatosis is noted. Bladder: The bladder is decompressed and not well-seen. IMPRESSION: 1. Gallbladder distention with no stones as incidental finding. 2. Otherwise negative renal sonogram. Electronically signed by: Ji Rangel On 05/26/2019 01:20:26 AM
--- NOTE | 2019-05-26 01:28 | HPEPDOC ---
[facility] Medical History & Physical Date of Admission May 25, 2019 Date of Service: May 25, 2019 History and Physical PCP: Jhonny Mosher CHIEF COMPLAINT: Falls HISTORY OF PRESENT ILLNESS: Patient is a 58-year-old female. Who first presented to emergency room on 05/19, at that time she complained of groin and hip pain started after walking down the stairs is concern for muscle strain she was discharged home. Following this at home she had reportedly to falls and she states that she has chronic sciatic back pain which has not been relieved with Motrin of note she also takes naproxen as well as full dose aspirin. She tells me she was taking ibuprofen 800 mg every 4-6 hours. She was seen in the e mergency room on the 20 yesterday for regards to back pain and was subsequently sent home. She presents to the emergency room once again today this time stating that the swelling in her legs as gotten worse over the last 3 weeks and that she has had continued pain in her back which has decreased her ability to move at all. She tells me now that she is also feels cloudy and has difficulty with her thoughts Otherwise patient denies weight loss, hair loss, headache, visual changes, chest pain, shortness of breath, cough, nausea, vomiting, diarrhea, abdominal pain, muscle aches, worsening arthritis, change in mood unfortunately on her 2 previous emergency room visits were checked. Patient tells me her only new medication is Suboxone which she did not tolerate it she self discontinued 3 days ago. She is unsure if chlorthalidone is a new medication PAST MEDICAL HISTORY: 1. Degenerative joint disease. 2. Tobacco abuse. 3. And asthma 4 gastroesophageal reflux disease 5 osteoarthritis 6 hypertension 7 obstructive sleep apnea 8 morbid obesity 9 bilateral lower extremity venous insufficiency 10 B12 deficiency 12 depression 13 insomnia 13 diabetes mellitus. HOME MEDICATIONS: Please see below. ALLERGIES: Please see below PAST SURGICAL HISTORY: 1." His left breast milk duct removed"'s. 2. Adenoidectomy SOCIAL HISTORY: Lives with: Alone but has family nearby, Tobacco use: Active smoker. ETOH: Denies, Illicit drug use: Denies, Tattoos done unprofessionally: Denies, CODE STATUS: Full code, she says she is too young to FAMILY HISTORY:Reviewed and noncontributory REVIEW OF SYSTEMS: 10 systems reviewed and negative other than HPI PHYSICAL EXAMINATION: VITAL SIGNS: Temperature 98, pulse 101, respiratory rate 20, blood pressure 119/58, pulse oximetry 98 % on room air. GENERAL: Large super morbidly obese woman sitting up in a stretcher she appears encephalopathic and lethargic but is able to remain awake she is oriented and speaking in complete sentences although she is somewhat tangential and requires frequent redirection. HEENT: Mildly dry mucous membranes no elevation and CVP but difficult to assess secondary to body habitus CARDIOVASCULAR: S1 S2 regular no additional heart sounds appreciated. But distant secondary to body habitus RESPIRATORY: Clear to auscultation bilaterally. But distant secondary to body habitus ABDOMINAL: Bowel sounds present abdomen soft and nontender EXTREMITIES: No clubbing cyanosis 2-3+ edema bilaterally NEUROLOGICAL: Spontaneously moves all 4 extremities cranial 2 through 12 grossly intact no gross focal deficits appreciated PSYCHOLOGICAL: Appropriate as noted above somewhat lethargic and somewhat tangential LABORATORY DATA: See below. MICROBIOLOGY: Please see below. IMAGING: Hip/pelvis x-ray 05/19/2019:Negative left hip. If symptoms persist or worsen, consider MRI. Lumbar spine CT:1. Lumbarization of S1 with S1-S2 disc. 2. Multilevel degenerative changes with varying degrees of spinal and neural foraminal stenosis as described. 3. No acute fracture or subluxation. Chest x-ray: Report pending Vascular ultrasound:Negative bilateral lower extremity venous duplex exam without evidence of deep venous thrombosis. ASSESSMENT & PLAN: This is a 58-year-old female with hyperkalemia and acute renal failure. PROBLEMS: 1. Hyperkalemia: Likely secondary to acute renal failure. In the emergency room she has received albuterol nebulizer, regular insulin, calcium gluconate and 1 L of normal saline. I will provide immediately for Kayexalate recheck a BMP within 2 hours prior additional 2 L bolus of normal saline she'll likely require a dditional 1-2 following this. Admit to medical intensive care unit for telemetry monitoring 2. Acute renal failure: Her urinalysis is certainly quite inactive sediment certainly suggestive of an infectious process. She has received vancomycin renally dosed Zosyn in the emergency room. I will continue with the renally dosed Zosyn hold on further vancomycin I will check a MRSA screen of the nares. Provided with IV fluids aggressive as outlined above nephrology consult has been placed at this time by myself. She appears to have had a significant increase in her NSAID use over the last several days secondary to her falls. This could certainly also be pushing her into acute renal failure. We'll check urine culture blood cultures from calcitonin renal ultrasound as well as urine electrolytes. I suspect that her lower extremity edema for the last several weeks as secondary to acute renal failure and fluid retention resultant. I would not be surprised at all if she required hemodialysis in the near future. A provider at some concern for rhabdo her CK is not elevated enough to be the etiology of this however may be responsible for the small elevation in her AST 3. Falls: Possibly secondary to uremia and lower extremity edema. Nephrology consults placed if and when she is able consider physical therapy for the time being I'll keep her on bed rest 4.Gastroesophageal reflux disease: Continue with omeprazole 5. Mood disorder: Continue with Prozac and trazodone 6. Chronic pain continue with Soma and cyclobenzaprine hold on any NSAIDs no acute changes noted on imaging regarding her degenerative disc disease 7. Dyslipidemia: Continue with rosuvastatin 8. Hypertension: We'll hold lisinopril as well as chlorthalidone 9. Diabetes: Sliding scale hold home metformin DVT PROPHYLAXIS:Heparin twice a day DISPOSITION: Admitted to the medical intensive care unit to [facility]. Prognosis is guarded Vital Signs Vital Signs Date Time Temp Pulse Resp B/P (MAP) Pulse Ox O2 Delivery O2 Flow Rate FiO2 05/25/19 23:27 88 20 119/58 (78) 98 Room Air 05/25/19 21:27 97.0 Laboratory Data Labs 24H Laboratory Tests 2 05/25/19 21:59: Nucleated Red Blood Cells % (auto) 0.0, Erythrocyte Sedimentation Rate 120H, D- Dimer, Quantitative 2473.81H, Anion Gap 11, Glomerular Filtration Rate 6.0L, Calcium Level 8.0L, Aspartate Amino Transf (AST/SGOT) 91H, Alanine Aminotransferase (ALT/SGPT) 39, Alkaline Phosphatase 97, Total Bilirubin 1.0, Direct Bilirubin 0.4H, Total Creatine Kinase 2920H, Creatine Kinase MB 17.8H, Creatine Kinase MB Relative Index 0.61, Troponin I < 0.02, C-Reactive Protein, Quantitative 29.80H, UC-Vna-S-Type Natriuretic Peptide 2436H, Total Protein 6.4, Albumin 2.7L, Albumin/Globulin Ratio 0.73L, Thyroid Stimulating Hormone (TSH) 1.810 05/25/19 23:28: POC Glucose (Misc Panel) 95, POC Sodium (Misc Panel) 131L, POC Potassium (Misc Panel) 6.6*H, POC Chloride (Misc Panel) 100, POC Total CO2 (Misc Panel) 19.0L, POC Blood Urea Nitrogen (Misc Panel 98H, POC Ionized Calcium (Misc Panel) 4.7, POC Creatinine (Misc Panel) 8.6H, POC Hematocrit (Misc Panel) 35.0L 05/25/19 23:47: Urine Color KANDI, Urine Appearance TURBIDH, Urine pH 5.0, Urine Specific [place] 1.023, Urine Protein 2+H, Urine Glucose (UA) 1+H, Urine Ketones TRACEH, Urine Blood 2+H, Urine Nitrite NEGATIVE, Urine Bilirubin 1+H, Urine Urobilinogen 2.0H, Urine Leukocyte Esterase 1+H, Urine WBC (Auto) 42H, Urine RBC (Auto) 18H, Urine Hyaline Casts (Auto) 3, Urine Bacteria (Auto) 1+H, Urine Squamous Epithel ial Cells 3, Urine Amorphous Sediment SMALLH, Urine Mucus (Auto) SMALL, Urine Sperm (Auto) , Urine Myoglobin POSITIVEH 05/25/19 23:59: Bedside Glucose (Misc Panel) 85 CBC/BMP Laboratory Tests 05/25/19 21:59 Red Blood Count 3.98 L, Mean Corpuscular Volume 88.7, Mean Corpuscular Hemoglobin 28.9, Mean Corpuscular Hemoglobin Concent 32.6, Red Cell Distribution Width 15.7 H Microbiology Microbiology 05/25/19 Blood Culture, Received Pending 05/25/19 Blood Culture, Received Pending 05/25/19 Urine Culture, Received Pending Home Medications Scheduled Aspirin (Aspirin) 325 Mg Tablet, 325 MG PO DAILY Chlorthalidone (Chlorthalidone) 25 Mg Tablet, 25 MG PO DAILY Clotrimazole/Betamethasone Dip (Lotrisone Cream) 15 Gm Cream..g., 1 APLCT TOP QAM-PM apply to affected area(s) Fluoxetine Hcl (Fluoxetine HCl) 20 Mg Capsule, 20 MG PO DAILY Lidocaine (Lidocaine) 5% Adh..patch, 1 PATCH TOP DAILY NEW RX FROM LAST NIGHT HAS NOT USED YET Lisinopril (Lisinopril) 20 Mg Tablet, 20 MG PO DAILY Metformin HCl (Metformin HCl) 500 Mg Tablet, 500 MG PO DAILY Omeprazole (Omeprazole) 20 Mg Capsule.dr, 20 MG PO DAILY Rosuvastatin Calcium (Rosuvastatin Calcium) 40 Mg Tablet, 40 MG PO QHS Trazodone HCl (Trazodone HCl) 100 Mg Tablet, 100 MG PO QHS Scheduled PRN Albuterol Sulfate (Ventolin Hfa) 18 Gm Hfa.aer.ad, 2 PUFFS INH Q4-6H PRN for SOB/WHEEZING Carisoprodol (Carisoprodol) 350 Mg Tablet, 350 MG PO TID PRN for MUSCLE SPASMS Cyclobenzaprine HCl (Cyclobenzaprine HCl) 10 Mg Tablet, 10 MG PO DAILY PRN for MUSCLE SPASMS Naproxen (Naproxen) 500 Mg Tablet, 500 MG PO BID PRN for PAIN Allergies Coded Allergies: No Known Allergies (Unverified , 05/19/19) A-FIB/CHADSVASC A-FIB History Current/History of A-Fib/PAF?: No CHRISSY HUGGINS MD May 26, 2019 01:28
[2019-05-26] MEDS ORDERED: DEXTROSE 50% 50 ML SYRINGE IV PRN (01:30)
[2019-05-26] MEDS ORDERED: GLUCOSE 4 GM CHEW TABLET PO PRN (01:30)
[2019-05-26] MEDS ORDERED: GLUCAGON FOR INJ 1 MG VIAL (J1610) SC PRN (01:30)
[2019-05-26] MEDS: traZODone 100 MG TAB PO SCH ×2 (02:15→20:54)
[2019-05-26 02:49] LABS: CALCIUM LEVEL 8.3 MG/DL (8.8-10.2); CREATININE FOR GFR 7.37 MG/DL (0.55-1.30); POTASSIUM SERUM 6.8 MEQ/L (3.5-5.1)
[2019-05-26 02:56] LABS: POTASSIUM RANDOM URINE 44.2 MEQ/L
[2019-05-26] MEDS ORDERED: DEXTROSE 50% 50 ML SYRINGE IV STA (03:01)
[2019-05-26] MEDS ORDERED: HumuLIN R (REGULAR) INSULIN (NovoLIN R) **100U/ML** PER UNIT IV STA (03:01)
[2019-05-26] MEDS ORDERED: CALCIUM GLUCONATE 1,000 MG in D5W MINI-BAG PLUS 100 ML IV ONE (03:15)
[2019-05-26] MEDS ORDERED: SOD POLYSTYRENE SULFONATE SUSP 30 GM/120 ML ENEMA PR ONE (03:15)
[2019-05-26] MEDS: NS 1,000 ML IV SCH ×2 (03:57→08:27)
[2019-05-26] MEDS: IPRATROPIUM 0.5MG/ALBUTEROL 2.5MG INH SOL UD 3ML (DUONEB)(J7620) NEB SCH ×4 (04:48→19:41)
[2019-05-26] MEDS ORDERED: PATIROMER SORBITEX CALCIUM 8.4 GM POWDER PACKET (VELTASSA) PO ONE (05:00)
[2019-05-26 06:57] LABS: HEMATOCRIT 34.9 % (36.0-47.0); HEMOGLOBIN 11.2 g/dl (12.0-15.5); MEAN CORPUSCULAR HEMOGLOBIN 28.9 pg (27.0-33.0); MEAN CORPUSCULAR HGB CONC 32.1 g/dl (32.0-36.5); MEAN CORPUSCULAR VOLUME 89.9 fl (80.0-96.0); PLATELET COUNT, AUTOMATED 277 10^3/uL (150-450); RED BLOOD COUNT 3.88 10^6/uL (4.00-5.40); WHITE BLOOD COUNT 29.4 10^3/uL (4.0-10.0)
--- NOTE | 2019-05-26 07:13 | REP ---
Clinical: Weakness . Comparison: 03/16/2006 . Findings: The mediastinum and cardiac silhouette are stable and within normal limits for portable technique. The lung rhoades are clear without acute consolidation, effusion, or pneumothorax. Skeletal structures are intact. Impression: No acute cardiopulmonary process appreciated. Electronically Signed by Eduard Kate MD 05/26/2019 07:04 A
[2019-05-26] MEDS ORDERED: HumaLOG INSULIN (NovoLOG) PER UNIT SC SCH ×2 (07:30→21:00)
[2019-05-26 07:31] LABS: BLOOD UREA NITROGEN 95 MG/DL (7-18); CALCIUM LEVEL 8.8 MG/DL (8.8-10.2); CARBON DIOXIDE LEVEL 16 MEQ/L (21-32); CHLORIDE LEVEL 103 MEQ/L (98-107); CREATININE FOR GFR 7.28 MG/DL (0.55-1.30); GLOMERULAR FILTRATION RATE 6.1 (>45); GLUCOSE, FASTING 95 MG/DL (70-100); MAGNESIUM LEVEL 2.3 MG/DL (1.8-2.4); PHOSPHORUS LEVEL 3.7 MG/DL (2.5-4.9); POTASSIUM SERUM 5.9 MEQ/L (3.5-5.1); SODIUM LEVEL 131 MEQ/L (136-145); TROPONIN I < 0.02 NG/ML (< 0.10)
[2019-05-26] MEDS: FLUoxetine 20 MG CAP PO SCH (08:26)
[2019-05-26] MEDS: OMEPRAZOLE 20 MG CAP PO SCH (08:26)
[2019-05-26] MEDS: HEPARIN SOD (PORCINE) 5000 UNITS/ML VIAL SC SCH ×2 (08:26→20:54)
[2019-05-26] MEDS: PIPERACILLIN/TAZOBACTAM SOD 2.25 GM in D5W MINI-BAG PLUS 50 ML IV SCH ×3 (08:26→23:26)
[2019-05-26 09:01] LABS: ABG BASE EXCESS -11.6 (-2.0-2.0); ABG HCO3 16.1 MEQ/L (22.0-26.0); ABG O2 SATURATION 96.2 % (95.0-99.0); ABG PARTIAL PRESSURE CO2 42.8 mmHg (35.0-45.0); ABG PARTIAL PRESSURE O2 92.8 mmHg (75.0-100.0); ABG STANDARD HCO3 15.3 MEQ/L (22.0-26.0); ABG TOTAL CO2 17.4 MEQ/L (23.0-31.0)
[2019-05-26 09:03] LABS: ABG pH (ARTERIAL) 7.192 UNITS (7.350-7.450)
--- NOTE | 2019-05-26 09:45 | ECGEPIP ---
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
[2019-05-26 10:28] LABS: CHOLESTEROL LEVEL 88 MG/DL (<200); CHOLESTEROL RISK RATIO 6.769 (<5); COMPLEMENT C3 142 MG/DL (90-180); COMPLEMENT C4 29 MG/DL (10-40); HDL CHOLESTEROL 13 MG/DL (>40); LDL CHOLESTEROL 42 MG/DL (<100); NON-HDL-C 75 MG/DL; TRIGLYCERIDES LEVEL 164 MG/DL (<150)
--- NOTE | 2019-05-26 10:29 | IPNPDOC ---
Subjective Date Seen The patient was seen on 05/26/19. Subjective Chief Complaint/HPI Ms. Mathews was sleepy and on BiPAP when I saw her today. I was not able to get an effective interview. I have spoken to both Dr. Park and Dr. Francisco regarding the patient's care. We agree that she has a mixed respiratory and renal acidosis because both her kidneys and lungs are not able to compensate. Dr. Francisco has asked Dr. López to place dialysis access and he intends to dialyze the patient later today. He is also monitoring her potassium levels carefully. Dr. Park is currently managing the noninvasive ventilatory support to try to improve the patient's acidosis that way. General: Reports: ROS Unobtainable Objective Physical Examination General Exam: Negative: Alert (sleepy and on BiPAP) Eye Exam: Positive: Conjunctiva & lids normal; Negative: Sclera icteric ENT Exam: Positive: Other ENT (BiPAP mask on) Neck Exam: Negative: Lymphadenopathy Chest Exam: Positive: Diminished, Other (persistent hum of constant positive airway pressure); Negative: Wheezing Heart Exam: Positive: Tachycardic, Normal S1, Normal S2; Negative: Murmurs Abdomen Exam: Positive: Normal bowel sounds, Soft; Negative: Tenderness Extremity Exam: Positive: Edema (2-3mm of malleolar pitting edema is noted) Psych Exam: Negative: Mental status NL (sleepy/lethargic) Assessment /Plan Problems (1) Acidosis, metabolic, with respiratory acidosis Status: Acute Discussed With: Barbering Instructor Problem Specific Plan: Consult Specialist, Monitor Clinically, Repeat Labs Problem Text: This is a combination of stress of the respiratory compromise and the renal failure. Treatment will be geared at fixing these component parts. She currently requires ICU care for this problem. (2) Acute renal failure Status: Acute Discussed With: Barbering Instructor Problem Specific Plan: Consult Specialist, Monitor Clinically, Repeat Labs Problem Text: The etiology of her renal failure is not clear. It seems likely that her simultaneous use of ibuprofen (especially 800mg q4-6h), naproxen, and aspirin play a role. It is also possible that a UTI now pyelonephritis is part of the picture. She is going to be dialyzed to remove the needed metabolic byproducts as well as help control her potassium. She will get a temporary dialysis catheter placed today. After she has several sessions of dialysis we will reassess the need for a more permanent solution. Nephro is also in the pro cess of looking at other etiologies for the ARF including a nephridities work up. (3) Hyperkalemia Status: Acute Discussed With: Barbering Instructor Problem Specific Plan: Consult Specialist, Repeat Labs Problem Text: She has already been treated with albuterol, insulin and glucose, calcium gluconate, and Kayexalate. She will be dialyzed later this afternoon. Nephrology is assisting with management of this issue; we appreciate their input. (4) SIRS (systemic inflammatory response syndrome) Status: Acute Response to Treatment: Improving Problem Specific Plan: Monitor Clinically, Repeat Labs Problem Text: She presented with a leukocytosis, tachycardia, and acute renal failure. She is currently covered with vancomycin and Zosyn. Blood and urine cultures are pending along with a MRSA screen. (5) DM (diabetes mellitus), type 2 Status: Chronic Response to Treatment: Stable Problem Specific Plan: Repeat Tests Problem Text: Her recent BGL have been well controlled. Her metformin is on hold. She is on AC and HS finger sticks with an ISS for now. (6) Hypertension Problem Text: BP is stable and if anything low. Her antihypertensives (chlorthalidone and lisinopril) are on hold for now. (7) Chronic pain Problem Text: She is too ill to complain of this right now. However, she must be carefully counseled to avoid NSAIDs once she is able to understand this better. I believe that accidental NSAID overdose plays a significant role in this admission. (8) Depression Status: Chronic Problem Text: She is ordered her home dose of fluoxetine. Plan/VTE VTE Prophylaxis Ordered?: Yes (SQ heparin) VS, I&O, 24H, Fishbone Vital Signs/I&O Vital Signs Date Time Temp Pulse Resp B/P (MAP) Pulse Ox O2 Delivery O2 Flow Rate FiO2 05/26/19 09:37 30 05/26/19 08:15 97.6 109 22 109/50 (69) 96 2.0 05/25/19 23:27 Room Air I&O- Last 24 Hours up to 6 AM 05/26/19 06:00 Intake Total 2720 ml Output Total 385 ml Balance 2335 ml Laboratory Data 24H LABS Laboratory Tests 2 05/25/19 21:59: Nucleated Red Blood Cells % (auto) 0.0, Erythrocyte Sedimentation Rate 120H, D- Dimer, Quantitative 2473.81H, Anion Gap 11, Glomerular Filtration Rate 6.0L, Calcium Level 8.0L, Aspartate Amino Transf (AST/SGOT) 91H, Alanine Aminotransferase (ALT/SGPT) 39, Alkaline Phosphatase 97, Total Bilirubin 1.0, Direct Bilirubin 0.4H, Total Creatine Kinase 2920H, Creatine Kinase MB 17.8H, Creatine Kinase MB Relative Index 0.61, Troponin I < 0.02, C-Reactive Protein, Quantitative 29.80H, AL-Zxv-W-Type Natriuretic Peptide 2436H, Total Protein 6.4, Albumin 2.7L, Albumin/Globulin Ratio 0.73L, Thyroid Stimulating Hormone (TSH) 1.810 05/25/19 23:28: POC Glucose (Misc Panel) 95, POC Sodium (Misc Panel) 131L, POC Potassium (Misc Panel) 6.6*H, POC Chloride (Misc Panel) 100, POC Total CO2 (Misc Panel) 19.0L, POC Blood Urea Nitrogen (Misc Panel 98H, POC Ionized Calcium (Misc Panel) 4.7, POC Creatinine (Misc Panel) 8.6H, POC Hematocrit (Misc Panel) 35.0L 05/25/19 23:47: Urine Color KANDI, Urine Appearance TURBIDH, Urine pH 5.0, Urine Specific [place] 1.023, Urine Protein 2+H, Urine Glucose (UA) 1+H, Urine Ketones TRACEH, Urine Blood 2+H, Urine Nitrite NEGATIVE, Urine Bilirubin 1+H, Urine Urobilinogen 2.0H, Urine Leukocyte Esterase 1+H, Urine WBC (Auto) 42H, Urine RBC (Auto) 18H, Urine Hyaline Casts (Auto) 3, Urine Bacteria (Auto) 1+H, Urine Squamous Epithelial Cells 3, Urine Amorphous Sediment SMALLH, Urine Mucus (Auto) SMALL, Urine Sperm (Auto) , Urine Myoglobin POSITIVEH 05/25/19 23:59: Bedside Glucose (Misc Panel) 85 05/26/19 02:09: Anion Gap 11, Glomerular Filtration Rate 6.0L, Osmolality 305H, Lactic Acid Level 0.9, Blood Urea Nitrogen 104H, Creatinine 7.37H, Sodium Level 132L, Potassium Level 6.8*H, Chloride Level 100, Carbon Dioxide Level 21, Calcium Level 8.3L 05/26/19 02:20: Urine Random Osmolality 298L, Urine Random Creatinine 151.0, Urine Random Sodium 29, Urine Random Potassium 44.2 05/26/19 05:54: Anion Gap 12, Glomerular Filtration Rate 6.1L, Calcium Level 8.8, Nucleated Red Blood Cells % (auto) 0.0, Phosphorus Level 3.7, Magnesium Level 2.3, Troponin I < 0.02, Triglycerides Level 164H, LDL Cholesterol 42, Total Cholesterol 88, Non- HDL Cholesterol (LDL + VLDL) 75, Total HDL Cholesterol 13L, Cholesterol/HDL Ratio 6.769H, Complement C3 142, Complement C4 29 05/26/19 08:44: Blood Gas Bicarbonate Standard 15.3L, Arterial Blood pH 7.192*L, Arterial Blood Partial Pressure CO2 42.8, Arterial Blood Partial Pressure O2 92.8, Arterial Blood Total CO2 17.4L, Arterial Blood HCO3 16.1L, Arterial Blood Base Excess - 11.6L, Arterial Blood Oxygen Saturation 96.2 CBC/BMP Laboratory Tests 05/25/19 21:59 Red Blood Count 3.98 L, Mean Corpuscular Volume 88.7, Mean Corpuscular Hemoglobin 28.9, Mean Corpuscular Hemoglobin Concent 32.6, Red Cell Distribution Width 15.7 H 05/26/19 02:09 Calcium Level 8.3 L 05/26/19 05:54 Red Blood Count 3.88 L, Mean Corpuscular Volume 89.9, Mean Corpuscular Hemoglobin 28.9, Mean Corpuscular Hemoglobin Concent 32.1, Red Cell Distribution Width 15.7 H Microbiology Microbiology 05/25/19 Blood Culture, Received Pending 05/25/19 Blood Culture, Received Pending 05/26/19 MRSA Screen, Received Pending 05/25/19 Urine Culture, Received Pending Philip Shi MD May 26, 2019 10:29 am
[2019-05-26] MEDS ORDERED: FUROSEMIDE 100 MG/10 ML VIAL (J1940) IV ONE (11:00)
[2019-05-26 11:02] LABS: VENOUS BASE EXCESS -11.2 (-2.0-2.0); VENOUS HCO3 13.9 MEQ/L (23.0-27.0); VENOUS O2 SATURATION 99.5 % (60.0-80.0); VENOUS PARTIAL PRESSURE CO2 29.4 mmHg (38.0-50.0); VENOUS PARTIAL PRESSURE O2 235.6 mmHg (30.0-50.0); VENOUS PH 7.294 UNITS (7.330-7.430); VENOUS STANDARD HCO3 15.7 MEQ/L; VENOUS TOTAL CO2 14.8 MEQ/L (24.0-28.0)
[2019-05-26 11:06] LABS: HEMOGLOBIN A1c 5.9 %
[2019-05-26 11:15] LABS: URINE TOTAL PROTEIN 144.7 MG/DL (0-12)
[2019-05-26 11:26] LABS: TOTAL PROTEIN 5.6 GM/DL (6.4-8.2)
[2019-05-26] MEDS: HumaLOG INSULIN (NovoLOG) PER UNIT SC SCH ×3 (12:09→20:54)
[2019-05-26] MEDS ORDERED: fentaNYL 100 MCG/2 ML INJECTION (J3010) As Ordered ONE (12:32)
[2019-05-26] MEDS ORDERED: PROPOFOL 200 MG/20 ML VIAL As Ordered ONE (12:32)
[2019-05-26] MEDS ORDERED: ONDANSETRON 4MG/2ML VIAL (J2405) As Ordered ONE (12:32)
[2019-05-26] MEDS ORDERED: MIDAZOLAM INJ 2 MG/2 ML VIAL (J2250) As Ordered ONE (12:32)
[2019-05-26] MEDS ORDERED: LIDOCAINE 2% INJ 100 MG/5 ML SDV (FOR ANES.) As Ordered ONE (12:32)
[2019-05-26 13:28] LABS: ALBUMIN 2.1 GM/DL (3.2-5.2); CALCIUM LEVEL 8.3 MG/DL (8.8-10.2); CREATININE FOR GFR 7.33 MG/DL (0.55-1.30); PHOSPHORUS LEVEL 4.3 MG/DL (2.5-4.9); POTASSIUM SERUM 6.7 MEQ/L (3.5-5.1)
[2019-05-26] MEDS ORDERED: HEPARIN SOD (PORCINE) 5000 UNITS/ML VIAL As Ordered ONE (13:46)
[2019-05-26] MEDS ORDERED: LIDOCAINE 1% SDV INJ 30 ML VIAL As Ordered ONE (13:58)
--- NOTE | 2019-05-26 14:39 | REP ---
Clinical: Catheter placement. Technique: Intraoperative fluoroscopic imaging using portable C-arm technique. Findings: The patient is status post Perma-Cath placement extending into the SVC. Total fluoroscopic time 1 second. Impression: Status post Perma-Cath placement. Electronically Signed by Eduard Kate MD 05/26/2019 02:31 P
--- NOTE | 2019-05-26 14:51 | CR ---
DATE OF CONSULTATION: 05/26/2019 HISTORY OF PRESENT ILLNESS: The patient is a 58-year-old female with a past medical history of asthma, hypertension, gastroesophageal reflux disease (GERD), morbid obesity, current active smoker who presented initially with complaint of falls. The patient had been presenting to the ED in the past week with increasing groin and hip pain. She also has been having falls which she reports is due to her history of chronic sciatic back pain. The patient reports that her back pain had been worsening and she has been taking a naproxen as well as full dose aspirin and ibuprofen 800 mg every 4 to 6 hours for her worsening back pain for the past few days. She also had noticed increasing lower extremity edema in the past few weeks. The patient has a history of chronic lower extremity edema and venous insufficiency but she does feel this has been worsening. She is on chlorthalidone, which is a home medication. The patient has noticed some increased fatigue and some difficulty with her thoughts as well. She denies any increased shortness of breath or chest pain. She does have a history of a chronic cough that she reports is nonproductive. She is a current smoker and does have a history of asthma, but she does not use inhalers regularly, only as needed. On admission, the patient was noted to be significantly hyperkalemic as well as to have acute renal failure. She was admitted to the ICU given her severe hyperkalemia. The patient was given treatments with albuterol, insulin and glucose as well as calcium glucose and Kayexalate for her hyperkalemia. Overnight, she was noted to have episodes of apnea and desaturation. She denies a previous history of obstructive sleep apnea although it was witnessed in the ICU overnight. She was placed on nasal cannula oxygen supplementation for the desaturation. This morning, the patient has been noted to have increasing lethargy. She is arousable and able to converse but then she will dose off and is somewhat difficult to arouse. Her labs were notable for worsening of her metabolic acidosis. She had a ABG done which showed evidence of metabolic acidosis with combined respiratory acidosis. PAST MEDICAL HISTORY: Asthma, tobacco abuse, degenerative joint disease, GERD, osteoarthritis, hypertension, morbid obesity, chronic lower extremity venous insufficiency, B12 deficiency, depression, diabetes, insomnia. PAST SURGICAL HISTORY: Left breast milk duct removed and adenoidectomy. HOME MEDICATIONS: Lisinopril, aspirin, chlorthalidone, paroxetine, lidocaine patch, metformin, omeprazole, rosuvastatin, trazodone, naproxen as needed (p.r.n.), cyclobenzaprine p.r.n. and albuterol p.r.n. as well as carisoprodol p.r.n. ALLERGIES: No known drug allergies. SOCIAL HISTORY The patient lives alone. Is a current active smoker for more than 40 years of at least a half a pack sometimes up to one pack a day. Denies any alcohol use or other illicit drug use. FAMILY HISTORY: Noncontributory. PHYSICAL EXAMINATION Temperature 97.6, pulse is 109, respirations 22, blood pressure 109/50, O2 saturation 96% on 2 liters nasal cannula. Ins 2.7 liters, out 385 mL. General: The patient is morbidly obese female who is lying in the bed, does not appear to be in any acute respiratory distress. Is not using any accessory muscles for respiration currently. HEENT: Normocephalic, atraumatic. Mucous membranes are moist. Neck is supple. Unable to appreciate jugular venous distention (JVD) or adenopathy given the body habitus. Cardiovascular: Tachycardic, regular rate and rhythm. Normal S1, S2. Unable to appreciate any murmurs. Pulmonary: There is diminished breath sounds bilaterally with some faint coarse wheezing and crackles. No rhonchi. Abdomen is morbidly obese, is soft, nontender. There is reportedly some increased abdominal distension. Lower extremities: Bilateral pitting lower extremity edema. LABORATORY DATA WBC 29.4, hemoglobin 11.2, platelets 277. Sodium is 131, potassium is 5.9, chloride is 103, bicarb 16, BUN 95, creatinine 7.28, glucose is 95, phosphorous 3.7, magnesium 2.3. Troponins are negative. CPK 2920, TSH 1.81. UA: Positive for protein, glucose and blood, negative nitrates, positive myoglobin. IMAGING: Chest x-ray shows possible trace pleural effusions and some mildly increased interstitial markings, but no focal opacities. Renal ultrasound showed no evidence of hydronephrosis or cyst. The gallbladder appears distended with no evidence of cholelithiasis. Vascular ultrasound showed no evidence of deep venous thrombosis (DVT) in the bilateral lower extremities. ASSESSMENT/PLAN Ms. Mathews is a 58-year-old female with a past medical history of asthma, current active smoker, GERD, hypertension, osteoarthritis, morbid obesity, insomnia, depression, diabetes who presented with falls and worsening back pain for the past few days. The patient was found to have acute renal failure with significant hyperkalemia as well as with worsening of a non anion gap metabolic acidosis. She was noted to be increasingly lethargic this morning and she had an ABG done which showed a metabolic acidosis with a combined respiratory acidosis. The patient was also noted to have episodes of apnea and desaturation when sleeping and suspect she has a component of obstructive sleep apnea (MAUREEN) and obesity hypoventilation syndrome (OHS) given her body habitus. Discussed with renal given her acidosis now as well as her persistent hyperkalemia that she would likely need dialysis. Suspect she also has a component of fluid overload given her clinical picture as well as with her worsening respiratory acidosis and hypercarbia. Therefore, the patient was consented for emergent dialysis as well as placement of a hemodialysis catheter by vascular. - Will place the patient on BiPap for her respiratory acidosis. Suspect she will need BiPap versus C-PAP chronically for her history of MAUREEN and OHS, but that her acute respiratory acidosis should improve with improvement in her volume status and with dialysis. - will place her on BIPAP at 16/8 with RR 15 and FiO2 30% - The patient's acute renal failure may be multifactorial in the setting of her medications as well as increased NSAID usage. She does have some proteinuria as well as some myoglobinuria and some increased CPK so there may also be a component of rhabdomyolysis. Also concerning is her significant leukocytosis and possible multiple myeloma or other gammopathy is also in the differential and her serum protein electrophoresis (SPEP) and Urine protein electrophoresis (UPEP) is pending. The patient also has serologic testing pending for other nephritis syndromes. - Would followup her repeat ABG to continue monitoring her acid base status. Discussed with the patient if she does not have improvement in her respiratory acidosis or in her ABG then she may need intubation, but suspect that she will improve with dialysis and with noninvasive positive pressure ventilation. - Can continue with DuoNebs given some wheezing, although suspect the wheezing is has a component from cardiogenic from pulmonary edema. - Continue with broad-spectrum antibiotics while her cultures are pending. Would check a procalcitonin to help determine de-escalation of antibiotics. DVT prophylaxis with heparin. FULL CODE. Total critical care time spent not including any procedures approximately 1 hour and 15 minutes. MTDD
[2019-05-26 16:57] LABS: ABG BASE EXCESS -5.9 (-2.0-2.0); ABG HCO3 18.5 MEQ/L (22.0-26.0); ABG O2 SATURATION 97.6 % (95.0-99.0); ABG PARTIAL PRESSURE CO2 33.2 mmHg (35.0-45.0); ABG PARTIAL PRESSURE O2 95.4 mmHg (75.0-100.0); ABG STANDARD HCO3 19.6 MEQ/L (22.0-26.0); ABG TOTAL CO2 19.6 MEQ/L (23.0-31.0); ABG pH (ARTERIAL) 7.365 UNITS (7.350-7.450)
[2019-05-26 16:58] LABS: ABG SITE RT RADIAL
--- NOTE | 2019-05-26 17:04 | CR ---
DATE OF CONSULTATION: 05/26/2019 REQUESTING PHYSICIAN: Dr. Sakshi Pimentel. CONSULTING PHYSICIAN: Dr. Francisco. REASON FOR CONSULTATION: Management of acute renal failure and hyperkalemia. CHIEF COMPLAINT: Patient presented to the emergency room yesterday because of recurrent falls. NOTE: History was obtained from patient's chart and from medical team. She is unable to provide any reliable history. HISTORY OF PRESENT ILLNESS: Elaine Mathews is a 58-year-old female with past medical history of morbid obesity, history of hypertension, obstructive sleep apnea, diabetes mellitus type 2, multiple other comorbidities, as mentioned below. Patient presented to the emergency room yesterday with pain in the groin area, weakness, inability to walk, falls at home. This was her third emergency room visit. She first presented to the emergency room on 05/19/2019 with groin pain and her second visit was on 05/24/2019 with leg pain and during each of these visits, she was sent home. There are no labs available from these visits. She apparently has near-normal renal function with a baseline creatinine of 0.94 as of labs done on 04/11/2019. As reported in the patient's chart, because of severe pain in the back and legs, patient was taking Motrin and naproxen. She was taking almost 800 mg of ibuprofen every 4-6 hours. She also reported worsening swelling of the lower extremities and she also reported feeling weak and tired. Further lab evaluation in the emergency room showed that patient was in renal failure with a creatinine of 7.3 and a potassium of 6.7. She was admitted under the hospitalist service yesterday. Case was discussed by myself with the emergency room physician. Decision was made to place the Victor catheter, hydrate the patient and admit the patient to intensive care unit (ICU). Patient was hydrated overnight with intravenous (IV) normal saline. She was started on IV empiric antibiotics, vancomycin and Zosyn. She was given Kayexalate for hyperkalemia. Patient was seen and examined by myself today morning. Last 24-hour events were noted. Trend in the labs were also noted. Patient was in mild respiratory distress when I saw her. She has obstructive sleep apnea. She was snoring when I saw her, difficult to arouse. Otherwise, she was following commands and answering few questions. There is no significant improvement in the renal function; however, hyperkalemia is slightly better because of the Kayexalate doses that she received overnight. PAST MEDICAL HISTORY: 1. Morbid obesity. 2. Obstructive sleep apnea. 3. Osteoarthritis 4. Hypertension. 5. Depression. 6. Diabetes mellitus type 2. 7. Degenerative joint disease. 9. Recent two emergency room (ER) visits for groin pain and leg pain. PAST SURGICAL HISTORY: 1. History of adenoidectomy. 2. History of breast surgery in the past. ALLERGIES: No known drug allergy. FAMILY HISTORY: No significant family history of end-stage renal disease requiring hemodialysis. SOCIAL HISTORY: Patient lives alone. Her father is present at the bedside today. She makes her decisions herself. She is an active smoker. She denies any illicit drug abuse or alcohol abuse. REVIEW OF SYSTEMS: Patient is unable to provide any reliable review of systems. She is drowsy and obtunded; however, she does report weakness, decreased appetite, shortness of breath, pain in the leg and lower extremity edema. PHYSICAL EXAMINATION: GENERAL: Patient is laying in bed. She is morbidly obese, mild respiratory distress. VITAL SIGNS: Temperature is 97.6 degrees Fahrenheit, blood pressure 109/50, pulse is 109, respiratory rate of 22, saturating 96% on 2 liters. HEAD AND NECK EXAM: Patient is normocephalic, atraumatic. Facial puffiness is noted. Mucous membranes are moist. Neck is supple. There is mildly elevated jugular venous distention (JVD). CARDIOVASCULAR: S1, S2. Tachycardia. 2+ edema of the bilateral lower extremities. RESPIRATORY: Mildly decreased breath sounds at the bases with mild expiratory rhonchi. ABDOMEN: Soft, obese, positive bowel sounds. Large abdominal pannus. Mild amount of erythema in the groin area. GENITOURINARY: Patient has an indwelling Victor catheter. Dark urine in the bag was noted. MUSCULOSKELETAL: 2+ edema of the bilateral lower extremities. CENTRAL NERVOUS SYSTEM (ELL TEACHER): Patient moves extremities on commands. Otherwise she is drowsy because of acidosis and sleep apnea. SKIN: No rashes or ulcers apart from erythema in the groin area. LABORATORY REVIEW: Complete blood count (CBC) showed a WBC of 29.4, hemoglobin is 11.2, platelets of 277. D-dimer was 2473. Urinalysis done yesterday showed it was turbinate was 2+ protein, 2+, blood, leukocyte esterase was 1+. Urine myoglobin was positive. Arterial blood gas (ABG) done today morning showed pH of 7.19, pCO2 42, pO2 92, bicarbonate is 16, oxygen saturation is 96%. Basic metabolic panel (BMP) on arrival showed sodium 132, potassium 6.7, chloride 100, bicarbonate 21, BUN 101, creatinine 7.3, calcium 8. CPK 2920. BNP was 2436. C-reactive protein is 29.8. Albumin 2.7. Repeat BMP done today morning showed sodium 131, potassium 5.9, chloride 103, bicarbonate 16, BUN 95, creatinine is 7.2. A1c 5.9. Phosphorus 3.7. MICROBIOLOGY: Blood cultures and urine cultures are pending. IMAGING STUDIES: A renal ultrasound was done yesterday. It showed gallbladder distension with no stones and kidneys were normal in size with no cyst or hydronephrosis. Doppler of the bilateral lower extremities was done which showed negative bilateral lower extremity venous Doppler for any evidence of deep venous thrombosis (DVT). A chest x-ray was done last night which showed no acute cardiopulmonary process. CURRENT INPATIENT MEDICATIONS: Patient's medications were all reviewed by me. She was given two doses of IV calcium gluconate. She was given normal saline 1 liter IV bolus times two. She was getting normal saline at 175 mL an hour. She is on Zosyn 2.25 grams every 8 hours. Vancomycin 1 gram IV was given yesterday. DuoNebs every 2 hours as needed for shortness of breath or wheezing. Soma 350 mg by mouth three times a day as needed for muscle spasm. Flexeril as needed, dexamethasone 8 mg IV times one dose, fluoxetine 20 mg daily, insulin sliding scale. She was also be given ketorolac 15 mg IV times one dose, Prilosec 20 mg by mouth daily. She was given Veltassa 8.4 grams by mouth one dose and Kayexalate 30 grams by mouth times two doses, trazodone 100 mg by mouth at bedtime. ASSESSMENT: A 58-year-old female with acute renal failure, hyperkalemia, metabolic acidosis and leukocytosis. PLAN: 1. Acute renal failure. Patient has acute nonoliguric renal failure, most likely secondary to a combination of dehydration, some occult infection and use of nonsteroidal anti-inflammatory drugs (NSAIDs), lisinopril and metformin at home. Given patient's hyperkalemia, metabolic acidosis and uremia, patient will get a catheter placed today and she will be dialyzed at bedside. Plan of care was discussed with the patient and her father at the bedside as well. 2. Hyperkalemia. It is secondary to acute renal failure and use of angiotensin-converting enzyme (LISA) inhibitors at home. She was given Kayexalate overnight. Potassium level is 5.9. She will be dialyzed with a 1K bath. Potassium is expected to improve after that. 3. Systemic inflammatory response syndrome. Patient came in with leukocytosis, acute renal failure, tachycardia. She is being empirically treated with IV vancomycin and Zosyn. Zosyn dose is adequate for renal failure. Blood cultures and urine cultures are still pending. 4. Proteinuria and hematuria. Given the amount of her protein and blood in the urine and acute renal failure, I have ordered 24 urine protein and creatinine, antinuclear antibody (KENNY), antineutrophil cytoplasmic antibodies (ANCA), double-strand DNA antibody, hepatitis profile, syphilis serology, C3/C4, serum protein electrophoresis (SPEP) and urine protein electrophoresis (UPEP) to rule out possibility of glomerulonephritis. 5. Diabetes mellitus type 2. Continue insulin sliding scale. Avoid use of metformin because of acute renal failure. 6. Chronic lower extremity pain. Avoid use of NSAIDs because of acute renal failure. Patient was already given a dose of Ketorolac yesterday in the emergency room. 7. Mild rhabdomyolysis. Patient has mildly elevated CPK levels. She came in with acute renal failure and she is having multiple falls. I am going to hold the statin at this point. IV fluids are being stopped because of shortness of breath in the setting of acute renal failure. Total critical Care time excluding procedures is 1 hr. MTDD
[2019-05-27] VITALS: BP 99/52
[2019-05-27] MEDS: IPRATROPIUM 0.5MG/ALBUTEROL 2.5MG INH SOL UD 3ML (DUONEB)(J7620) NEB SCH ×5 (02:00→23:40)
[2019-05-27 04:00] VITALS: BP 118/56
[2019-05-27 05:12] LABS: HEMATOCRIT 35.7 % (36.0-47.0); HEMOGLOBIN 11.3 g/dl (12.0-15.5); MEAN CORPUSCULAR HGB CONC 31.7 g/dl (32.0-36.5); MEAN CORPUSCULAR VOLUME 91.5 fl (80.0-96.0); PLATELET COUNT, AUTOMATED 297 10^3/uL (150-450)
[2019-05-27 05:14] LABS: WHITE BLOOD COUNT 30.1 10^3/uL (4.0-10.0)
[2019-05-27 05:32] LABS: CALCIUM LEVEL 8.1 MG/DL (8.8-10.2); CREATININE FOR GFR 6.19 MG/DL (0.55-1.30); GLOMERULAR FILTRATION RATE 7.3 (>45); POTASSIUM SERUM 5.3 MEQ/L (3.5-5.1)
[2019-05-27 08:00] VITALS: BP 136/65
[2019-05-27] MEDS: PIPERACILLIN/TAZOBACTAM SOD 2.25 GM in D5W MINI-BAG PLUS 50 ML IV SCH (08:36)
[2019-05-27] MEDS: FLUoxetine 20 MG CAP PO SCH (08:37)
[2019-05-27] MEDS: HEPARIN SOD (PORCINE) 5000 UNITS/ML VIAL SC SCH ×2 (08:37→21:28)
[2019-05-27] MEDS: HumaLOG INSULIN (NovoLOG) PER UNIT SC SCH ×4 (08:37→21:00)
[2019-05-27] MEDS: OMEPRAZOLE 20 MG CAP PO SCH (08:37)
[2019-05-27] MEDS: NYSTATIN 100,000 UNITS/GM TOPICAL PWD 15 GM TOP SCH ×2 (09:00→21:28)
[2019-05-27 09:13] LABS: ABG BASE EXCESS -5.4 (-2.0-2.0); ABG HCO3 19.4 MEQ/L (22.0-26.0); ABG O2 SATURATION 94.9 % (95.0-99.0); ABG PARTIAL PRESSURE CO2 35.6 mmHg (35.0-45.0); ABG PARTIAL PRESSURE O2 78.2 mmHg (75.0-100.0); ABG STANDARD HCO3 19.9 MEQ/L (22.0-26.0); ABG TOTAL CO2 20.5 MEQ/L (23.0-31.0); ABG pH (ARTERIAL) 7.354 UNITS (7.350-7.450)
[2019-05-27 09:58] LABS: HEPATITIS B SURFACE ANTIBODY NEGATIVE (POSITIVE)
[2019-05-27 10:04] LABS: HEPATITIS B SURFACE ANTIGEN NEGATIVE (NEGATIVE)
--- NOTE | 2019-05-27 10:16 | IPNPDOC ---
Subjective Date Seen The patient was seen on 05/27/19. Subjective Chief Complaint/HPI hyperkalemia Events since last encounter s/p HD yesterday. has been weaned of of Bipap and is now using table top Bipap at sleep hours, tolerating well. Toelrating po well. Constitutional: Denies: Chills, Fever, Night Sweats Skin: Denies: Rash, Lesions, Breakdown Pulmonary: Reports: Dyspnea (with exertion); Denies: Cough Cardiovascular: Denies: Chest Pain, Palpitations, Orthopnea, Paroxysmal Noc. Dyspnea, Lt Headedness Gastrointestinal: Denies: Nausea, Vomiting, Abdominal Pain, Diarrhea, Constipation Genitourinary: Reports: Other Symptoms (Victor) Psych: Reports: Mood Normal, Anxiety (mild) Objective Physical Examination General Exam: Negative: Alert (sleepy and on BiPAP) Eye Exam: Positive: Conjunctiva & lids normal; Negative: Sclera icteric ENT Exam: Positive: Other ENT (BiPAP mask on) Neck Exam: Negative: Lymphadenopathy Chest Exam: Positive: Diminished, Other (persistent hum of constant positive airway pressure); Negative: Wheezing Heart Exam: Positive: Tachycardic, Normal S1, Normal S2; Negative: Murmurs Telemetry: Positive: No significant arrhythmia Abdomen Exam: Positive: Normal bowel sounds, Soft; Negative: Tenderness Extremity Exam: Positive: Edema (2-3mm of malleolar pitting edema is noted), Normal pulses Psych Exam: Negative: Mental status NL (sleepy/lethargic) Assessment /Plan Assessment Patient seen, agree with note. She is in good spirits, family at bedside. Received dialysis earlier this day. Labwork pending. -- CDT Problems (1) Acidosis, metabolic, with respiratory acidosis Status: Acute Discussed With: Greaser And Oiler Problem Specific Plan: Consult Specialist, Monitor Clinically, Repeat Labs Problem Text: 05/27/19: ABG has stabilized as of this morning. Transition to med/surg with telemetry due to electrolyte disturbance. This is a combination of stress of the respiratory compromise and the renal failure. Treatment will be geared at fixing these component parts. She currently requires ICU care for this problem. (2) Acute renal failure Status: Acute Discussed With: Greaser And Oiler Problem Specific Plan: Consult Specialist, Monitor Clinically, Repeat Labs Problem Text: 05/27/19: management per nephrology. The etiology of her renal failure is not clear. It seems likely that her simultaneous use of ibuprofen (especially 800mg q4-6h), naproxen, and aspirin play a role. It is also possible that a UTI now pyelonephritis is part of the picture. She is going to be dialyzed to remove the needed metabolic byproducts as well as help control her potassium. She will get a temporary dialysis catheter placed today. After she has several sessions of dialysis we will reassess the need for a more permanent solution. Nephro is also in the process of looking at other etiologies for the ARF including a nephridities work up. (3) Leukocytosis Status: Acute Problem Text: WBC of 30,000 today. no Significant source of infection noted at this time. Negative blood cultures. urine cx pending. Questionable hematologic/malignant response. W/u ordered and results are pending. (4) Hyperkalemia Status: Resolved Discussed With: Greaser And Oiler Problem Specific Plan: Consult Specialist, Repeat Labs Problem Text: She has already been treated with albuterol, insulin and glucose, calcium gluconate, and Kayexalate. She will be dialyzed later this afternoon. Nephrology is assisting with management of this issue; we appreciate their input. (5) SIRS (systemic inflammatory response syndrome) Status: Resolved Response to Treatment: Improving Problem Specific Plan: Monitor Clinically, Repeat Labs Problem Text: She presented with a leukocytosis, tachycardia, and acute renal failure. She is currently covered with vancomycin and Zosyn. Blood and urine cultures are pending along with a MRSA screen. (6) DM (diabetes mellitus), type 2 Status: Chronic Response to Treatment: Stable Problem Specific Plan: Repeat Tests Problem Text: Her recent BGL have been well controlled. Her metformin is on hold. She is on AC and HS finger sticks with an ISS for now. (7) Hypertension Problem Text: BP is stable and if anything low. Her antihypertensives (chlorthalidone and lisinopril) are on hold for now. (8) Chronic pain Problem Text: She is too ill to complain of this right now. However, she must be carefully counseled to avoid NSAIDs once she is able to understand this better. I believe that accidental NSAID overdose plays a significant role in this admission. (9) Depression Status: Chronic Problem Text: She is ordered her home dose of fluoxetine. Plan/VTE VTE Prophylaxis Ordered?: Yes (SQ heparin) VS, I&O, 24H, Fishbone Vital Signs/I&O Vital Signs Date Time Temp Pulse Resp B/P (MAP) Pulse Ox O2 Delivery O2 Flow Rate FiO2 05/27/19 08:00 97.6 96 16 136/65 (88) 96 05/26/19 23:30 30 05/26/19 17:30 2.0 05/25/19 23:27 Room Air I&O- Last 24 Hours up to 6 AM 05/27/19 06:00 Intake Total 700 ml Output Total 3535 ml Balance -2835 ml Laboratory Data 24H LABS Laboratory Tests 2 05/26/19 10:41: Urine Total Protein mg/dL 144.7H 05/26/19 10:51: Blood Gas Bicarbonate Standard 15.7, Venous Blood pH 7.294L, Venous Blood Partial Pressure CO2 29.4L, Venous Blood Partial Pressure O2 235.6H, Venous Blood Total Carbon Dioxide 14.8L, Venous Blood HCO3 13.9L, Venous Blood Oxygen Saturation 99.5H, Venous Blood Base Excess -11.2L, Total Protein (PEP) 5.6L, Hepatitis B Surface Antigen NEGATIVE, Hepatitis B Surface Antibody NEGATIVE 05/26/19 11:42: Bedside Glucose (Misc Panel) 112 05/26/19 12:53: Blood Urea Nitrogen 100H, Creatinine 7.33H, Sodium Level 129L, Potassium Level 6.7*H, Chloride Level 104, Carbon Dioxide Level 15L, Anion Gap 10, Glomerular Filtration Rate 6.0L, Calcium Level 8.3L, Phosphorus Level 4.3, Albumin 2.1#L 05/26/19 16:52: Blood Gas Bicarbonate Standard 19.6L, Arterial Blood pH 7.365, Arterial Blood Partial Pressure CO2 33.2L, Arterial Blood Partial Pressure O2 95.4, Arterial Blood Total CO2 19.6L, Arterial Blood HCO3 18.5L, Arterial Blood Base Excess - 5.9L, Arterial Blood Oxygen Saturation 97.6, Arterial Blood Gas Puncture Site RT RADIAL 05/26/19 17:28: Bedside Glucose (Misc Panel) 108 05/26/19 20:51: Bedside Glucose (Misc Panel) 138H 05/27/19 04:58: Nucleated Red Blood Cells % (auto) 0.1H, Anion Gap 11, Glomerular Filtration Rate 7.3L, Blood Urea Nitrogen 91H, Creatinine 6.19H, Sodium Level 134L, Potassium Level 5.3H, Chloride Level 102, Carbon Dioxide Level 21, Calcium Level 8.1L 05/27/19 08:56: Blood Gas Bicarbonate Standard 19.9L, Arterial Blood pH 7.354, Arterial Blood Partial Pressure CO2 35.6, Arterial Blood Partial Pressure O2 78.2, Arterial Blood Total CO2 20.5L, Arterial Blood HCO3 19.4L, Arterial Blood Base Excess - 5.4L, Arterial Blood Oxygen Saturation 94.9L CBC/BMP Laboratory Tests 05/26/19 12:53 Anion Gap 10 05/27/19 04:58 Red Blood Count 3.90 L, Mean Corpuscular Volume 91.5, Mean Corpuscular Hemoglobin 29.0, Mean Corpuscular Hemoglobin Concent 31.7 L, Red Cell Distribut ion Width 16.3 H, Calcium Level 8.1 L Microbiology Microbiology 05/25/19 Blood Culture - Preliminary, Resulted No growth after 24 hours . All specim... 05/25/19 Blood Culture - Preliminary, Resulted No growth after 24 hours . All specim... 05/26/19 MRSA Screen - Final, Complete 05/25/19 Urine Culture, Received Pending Celeste Peng May 27, 2019 10:16 FLORIAN HUANG DO May 28, 2019 23:11
[2019-05-27 10:33] LABS: HEPATITIS B CORE ANTIBODY IGM NEGATIVE (NEGATIVE)
--- NOTE | 2019-05-27 11:03 | CCN ---
DATE: 05/27/2019 The patient is seen and examined this morning during bedside rounds. Yesterday, the patient had her first session of hemodialysis. Post dialysis, she had a repeat ABG done while on BiPap which showed improvement in her metabolic acidosis and respiratory acidosis. She was therefore taken off of BiPap yesterday afternoon and was placed on it at night for likely obstructive sleep apnea(MAUREEN)/obesity hypoventilation syndrome (OHS). This morning, she reports feeling better. She continues to have some fatigue. She denies any chest pain. No increased shortness of breath. She continues to have an occasional chronic cough which is nonproductive. She denies any abdominal pain. No nausea or vomiting. She does have some back pain still depending on her positioning. PHYSICAL EXAMINATION: Temperature 96.8, pulse of 89, respirations 14, blood pressure 118/56, O2 sat 93% on room air. In 2.3 liters, out 3.4 liters. General: The patient is a morbidly obese female lying in bed, does not appear to be in acute respiratory distress and is not using any accessory muscles for respiration currently. She is awake, alert and oriented times three. HEENT: Normocephalic, atraumatic. Mucous membranes are dry. Neck is supple. Unable to appreciate jugular venous distention (JVD) due to body habitus. Cardiovascular: Regular rate and rhythm. Normal S1 and S2. Unable to appreciate any murmurs. Pulmonary: Some coarse inspiratory wheeze on the left side and some crackles bilaterally at the bases. No rhonchi. Abdomen is morbidly obese, soft, nontender. Lower Extremities: There is bilateral pitting lower extremity edema which is unchanged. LABORATORY DATA: WBC 30.1, hemoglobin 11.3, platelets 297. Chemistry sodium is 134, potassium 5.3, chloride 102, bicarb 21, BUN 91, creatinine is 6.19, glucose is 118. Procalcitonin was 3.38. ABG this morning - pH 7.354, pCO2 of 35.6, pO2 of 78.2. ASSESSMENT/PLAN: Ms. Mathews is a 58-year-old female with a past medical history of asthma, current active smoker, gastroesophageal reflux disease, hypertension, osteoarthritis, morbid obesity, depression, and diabetes who initially presented with falls and worsening back and hip pain for the past few days. The patient was found to have acute renal failure with significant hyperkalemia as well as worsening of non anion gap metabolic acidosis. Yesterday morning, she was found to have increasing lethargy and her ABG showed a combined metabolic and respiratory acidosis. The patient was placed on BiPap for her respiratory acidosis as well as a suspicion of MAUREEN and OHS given her body habitus and observed apneic episodes while admitted. She was started on dialysis and with improvement of her metabolic acidosis and with the BiPap her ABGs have improved and she was weaned off of BiPap yesterday. She did tolerate BiPap overnight for her suspected MAUREEN/OSH. The patient was placed on tabletop BiPap overnight and her ABG this morning shows improvement in her respiratory and metabolic acidosis. Therefore, will continue her with BiPap at 16/8 and FIO2 of 30% at night for suspected MAUREEN/OSH. The patient will need a sleep study as an outpatient to diagnosis her MAUREEN and so that she can be started on BiPap or C-PAP. - Suspect the patient does continue to have a component of fluid overload given her clinical picture as well as her renal failure. She is planned for another session of hemodialysis today and will likely have some fluid removal at this time as she did not appear to have significant fluid removal yesterday with her initial hemodialysis. - The patient continues to have significant leukocytosis. She has some chronic cough which she does not feel has worsened and has not been having any increased sputum, fevers or chills. She has no abdominal pain. No diarrhea. No other localizing symptoms. - Her blood cultures show no growth to date. Her urine culture is pending. Her procalcitonin was elevated however so would continue her on Zosyn for antibiotics for broad spectrum coverage. Would also check a sputum culture as well. - Also with her leukocytosis and some evidence of a protein gap on her serum protein and albumin ratio, there is a suspicion for some gammopathy such as some multiple myeloma. - The patient does have SPEP and UPEP pending, as well as, some other testing for possible nephritis syndromes to explain her renal failure. She did have a history of increased NSAID usage and some history of chronic renal failure which is likely contributing to her acute worsening renal failure. - Continue with DuoNebs. - The patient does not require nasal cannula oxygen supplementation while awake. Deep vein thrombosis (DVT) prophylaxis, heparin. Full code. Total critical care time spent, not including any procedures, approximately 35 minutes. She can followup with pulmonary 1-2 weeks after discharge so that she can get testing done for her obstructive sleep apnea. [id number]
[2019-05-27 12:04] LABS: CREATININE, URINE 31.2 MG/DL; URINE TOTAL PROTEIN 80.8 MG/DL (0-12)
[2019-05-27] MEDS ORDERED: HEPARIN 1,000 UNITS/ML 10ML VIAL (FOR RADIOLOGY& DIALYSIS ONLY) IV ONE (12:30)
[2019-05-27] MEDS ORDERED: HEPARIN 1,000 UNITS/ML 10ML VIAL (FOR RADIOLOGY& DIALYSIS ONLY) XX ONE (12:30)
[2019-05-27 15:37] LABS: TOTAL PROTEIN 24 HOUR URINE 2496.7 MG/24HR (50-150)
[2019-05-27 16:45] VITALS: BP 168/76
[2019-05-27] MEDS: GASTROGRAFIN SOLUTION 30ML PO SCH ×2 (18:02→18:03)
[2019-05-27] MEDS: traZODone 100 MG TAB PO SCH ×2 (21:29→23:01)
[2019-05-27] MEDS: FLUCONAZOLE 200 MG in APPROPRIATE DILUENT 1 EA IV SCH (21:29)
[2019-05-27 22:00] VITALS: BP 173/78
[2019-05-28 06:00] VITALS: BP 175/80
[2019-05-28 06:14] LABS: HEMATOCRIT 35.1 % (36.0-47.0); HEMOGLOBIN 11.4 g/dl (12.0-15.5); MEAN CORPUSCULAR HEMOGLOBIN 28.4 pg (27.0-33.0); MEAN CORPUSCULAR HGB CONC 32.5 g/dl (32.0-36.5); MEAN CORPUSCULAR VOLUME 87.5 fl (80.0-96.0); PLATELET COUNT, AUTOMATED 262 10^3/uL (150-450); RED BLOOD COUNT 4.01 10^6/uL (4.00-5.40); WHITE BLOOD COUNT 19.9 10^3/uL (4.0-10.0)
--- NOTE | 2019-05-28 06:34 | IPN ---
DATE OV VISIT: 05/27/2019 SUBJECTIVE: The patient was seen and examined the bedside today morning in the intensive care unit (ICU). The patient is much more awake and alert today. She was able to communicate and provide the history and answer all of the questions. She was dialyzed yesterday. She tolerated the hemodialysis procedure well, 1.5 liters of fluid was removed. There is no significant improvement in the renal function. The patient still has mild hyperkalemia. Leukocytosis is worse today as compared with yesterday despite being on intravenous (IV) Zosyn. The patient is nonoliguric, she was given a dose of Lasix yesterday. She made almost 2 liters of urine. OBJECTIVE: Vital signs: Temperature is 97.6 degrees Fahrenheit, blood pressure 136/65, pulse is 96, respiratory of 16, saturating 96% on room air. Intake and output: Urine output recorded as 1.9 liters yesterday, 1 liter so far today since overnight. Weight in the bed scale is 153.6 kg. PHYSICAL EXAMINATION: General: The patient is awake, alert, oriented times three, morbidly obese, laying in bed wearing nasal cannula. Head and neck exam Extraocular muscles intact. Pupils equally round and reactive to light. Mucous membranes are moist. Neck: Neck is supple. She has a right internal jugular (IJ) tunneled hemodialysis catheter. Cardiovascular: S1, S2, regular rate, 2+ edema of the bilateral lower extremities. Respiratory: Mildly decreased breath sounds at the bases, otherwise no active rales or rhonchi. Abdomen: Soft, obese, positive bowel sounds. Genitourinary: She has an indwelling Victor catheter. Musculoskeletal: 2+ edema bilateral lower extremities with tenderness to deep palpation. Central nervous system (DIRECTOR OF STUDENT AFFAIRS): Patient is much more awake and alert today. She is moving all extremities, power is 5/5 in bilateral upper extremities. LABORATORY DATA: CBC showed WBC of 13.1, hemoglobin is 11.3, platelets are 297. 24-hour urine protein came back at 2496 mg. Arterial blood gas (ABG) done today morning showed pH 7.35, pCO2 of 35, pO2 78, bicarb is 19.4, O2 sat is 94.9%. Basic metabolic profile (BMP) today morning showed sodium 134, potassium 5.3, chloride 102, bicarb 21, BUN 91, creatinine is 6.1, calcium 8.1. CURRENT INPATIENT MEDICATIONS: The patient's medications were all reviewed by me. The cultures are negative so far. The patient is afebrile. She does not look toxic at all. I am stopping the Zosyn and actually starting the patient on fluconazole 200 mg IV every 24. The patient reports that she had a gynecological fungal infection before she came to the hospital. No other change in the medications today as compared with yesterday. ASSESSMENT/PLAN: 1. Acute renal failure. The patient has acute nonoliguric renal failure, it is multifactorial in nature. She was using high dose of nonsteroidal anti-inflammatory drugs (NSAIDs), metformin and lisinopril at home. She was emergently dialyzed yesterday. She needs another session of dialysis for three hours for metabolic acidosis and hyperkalemia. Her renal function is expected to improve over the next few weeks. 2. Hyperkalemia. It is secondary to renal failure and use of LISA inhibitors at home. She will be dialyzed again today with two potassium (K) baths, potassium level is expected to improve. 3. Persistent leukocytosis. The patient is afebrile with persistent leukocytosis and she has no cough. No abdominal symptoms. I have started the Zosyn dose. I have started her on empiric fluconazole and I have also ordered a CT scan of the chest without contrast, CT abdomen and pelvis with oral contrast only. 4. Proteinuria. The patient has 2.4 grams of proteinuria on 24-hour urine. Autoimmune serology is also ordered and is pending. If the patient does not show any signs of renal recovery she might need a renal biopsy. 5. Diabetes mellitus type 2. Continue insulin sliding scale, avoid use of metformin. 6. Hyponatremia. The patient has hypervolemic hyponatremia. Sodium level is improving with hemodialysis and fluid removal. 7. Normal anion gap metabolic acidosis. It is secondary to renal failure. Acidosis is improving with hemodialysis.
[2019-05-28 06:54] LABS: CALCIUM LEVEL 8.6 MG/DL (8.8-10.2); CREATININE FOR GFR 4.98 MG/DL (0.55-1.30); GLOMERULAR FILTRATION RATE 9.4 (>45); POTASSIUM SERUM 4.5 MEQ/L (3.5-5.1)
[2019-05-28] MEDS: HumaLOG INSULIN (NovoLOG) PER UNIT SC SCH ×2 (07:29→11:12)
[2019-05-28] MEDS: IPRATROPIUM 0.5MG/ALBUTEROL 2.5MG INH SOL UD 3ML (DUONEB)(J7620) NEB SCH ×3 (08:00→21:12)
--- NOTE | 2019-05-28 09:04 | ROOPDOC ---
[facility] Report Of Operation Report of Operation DATE OF PROCEDURE: 05/26/2019 PREPROCEDURE DIAGNOSES: Acute renal failure requiring access for renal replacement therapy. POSTPROCEDURE DIAGNOSES: Acute renal failure requiring access for renal replacement therapy. PROCEDURE: Ultrasound guided right internal jugular vein cannulation. Fluoroscopic guided right internal jugular vein 19 cm tip to cuff tunneled central venous catheter insertion. ATTENDING SURGEON: DR. Jessica López M.D. PRODUCT MARKETER: None INDICATION:Patient is an 58-year-old female who presented with acute renal failure and now requires access for renal replacement therapy via hemodialysis. Patient will undergo ultrasound and fluoroscopic guided placement of a right internal jugular vein tunneled central venous catheter. The procedure was described and explained to the patient in detail including drawing of pictures demonstrating the procedure and anatomy. Risks, benefits and alternative treatment options were discussed with the patient. Alternative treatment options included but were not limited to no intervention. Benefits included but were not limited to access for hemodialysis until permanent access for renal replacement therapy is created. Risks included, but were not limited to infection, bleeding, pneumothorax, hemothorax, cannulation site deep venous thrombosis, possible need for open surgical intervention, allergic reaction or complication from prepping and draping materials, possible need for transfusion of blood products, anesthetic complications, cerebrovascular accident, myocardial infarction, pulmonary embolus, deep venous thrombosis, loss of limb, loss of life, poor satisfaction and poor outcome. Risks of not performing the procedure included bu t were not limited to inability to obtain renal replacement therapy via hemodialysis and . The patient's questions were answered. The patient voices understanding of these risks, benefits and alternative treatment options. The patient voices acceptance of the risks associated with the procedure and agrees to proceed with an ultrasound and fluoroscopic guided right internal j ugular vein tunneled central venous catheter insertion. There were no promises or guarantees made to the patient regarding the outcome or results of the procedure. ANESTHESIA: Local with 20 mL of 2% lidocaine mixed with 0.5% Marcaine. EBL: 70 ml. IVF: 100 ml. FLUORO TIME: 0.1 minutes. CONTRAST: None. COMPLICATIONS: None. DRAINS: None. SPECIMENS: None. IMPLANTS: Right internal jugular vein tunneled central venous catheter with use of a 19 cm tip to cuff [place] hemodialysis catheter. DESCRIPTION OF PROCEDURE: Patient was taken to the angiography suite, placed supine on the angiography room table and then prepped and draped in a standard surgical fashion. A timeout was conducted by myself and the team members in the room confirming the correct patient, procedure and laterality. Ultrasound guidance was used to cannulate the right internal jugular vein using a mi cropuncture needle after anesthetizing the overlying skin and subcutaneous tissue with 2% lidocaine mixed with 0.5% Marcaine. The cannulation of the right internal jugular vein was performed with real-time concurrent visualization of the entry of the micropuncture needle into the right internal jugular vein with a hardcopy image preserved. The ultrasound showed the right internal jugular vein to be widely patent, easily compressible and free of thrombus. The micropuncture wire was advanced through the micropuncture needle which was upsized to a micropuncture sheath. An Amplatz wire was advanced through the micropuncture sheath which was then used to sequentially dilate the right internal jugular vein under fluoroscopic guidance. An introducer sheath was the n placed over the Amplatz wire and the wire was removed. The catheter was tunneled through a puncture wound in the right chest after anesthetizing the overlying skin and subcutaneous tissue with 2% lidocaine and brought out through a puncture wound at the right internal jugular vein entry site. The catheter was then advanced through the introducer sheath which had been positioned under fluoroscopic guidance. The catheter was positioned under fluoroscopic guidance with the tip in the superior vena cava right atrial junction. Both ports of the catheter were aspirated, noted to aspirate easily and then flushed with heparinized saline. The catheter was secured to the right anterior chest wall using #2-0 Prolene suture after anesthetizing the overlying skin and subcutaneous tissue with 2% lidocaine mixed with 0.5% Marcaine. The puncture wound in the right neck was closed using #4-0 Monocryl in inverted interrupted fashion. Dressings were applied. The patient tolerated the procedure well. All instrument, sponge and needle counts were correct at the end of the case. There were no complications. Dr. López was present for and directed the entire case. Patient was transferred to the recovery area and subsequently to the ICU in critical condition. The tunneled central venous catheter is stable for use for hemodialysis access. RADIOLOGIC SUPERVISION AND INTERPRETATION: The initial ultrasound showed the right internal jugular vein to be easily compressible, widely patent and free of thrombus. Ultrasound was used to guide cannulation of the right internal jugular vein with real-time concurrent visualization of the entry of the needle into the right internal jugular vein with a hardcopy image preserved. Fluoroscopic guidance was then used to sequentially dilate the right internal jugular vein, place and introducer sheath and position the catheter with the tip in the superior vena cava/right atrial junction. Final fluoroscopic image showed the catheter to be in good position and good alignment with no pneumo- or hemothorax noted with the tip in the superior vena cava/right atrial junction. The tunneled central venous catheter is stable for use for hemodialysis access. Alex López MD May 28, 2019 09:04
[2019-05-28] MEDS: FLUoxetine 20 MG CAP PO SCH (09:08)
[2019-05-28] MEDS: OMEPRAZOLE 20 MG CAP PO SCH (09:08)
[2019-05-28] MEDS: HEPARIN SOD (PORCINE) 5000 UNITS/ML VIAL SC SCH ×2 (09:09→20:09)
[2019-05-28] MEDS: NYSTATIN 100,000 UNITS/GM TOPICAL PWD 15 GM TOP SCH ×2 (09:09→20:10)
--- NOTE | 2019-05-28 10:45 | REP ---
Clinical: Leukocytosis. Shortness of breath. Technique: Axial noncontrast images from the thoracic inlet to the upper abdomen with coronal and sagittal re-formations. Findings: Mild bibasilar atelectasis is appreciated. No focal consolidation, significant nodule or mass lesion. No significant effusion. No pneumothorax. Tracheobronchial tree is patent. No significant adenopathy noted. Atherosclerotic changes to the thoracic aorta and coronary arteries noted without aortic aneurysm or cardiomegaly. No pericardial effusion. Central line identified with tip in the SVC. Surrounding musculoskeletal structures demonstrate age-related degenerative changes without focal osseous abnormality Impression: Mild bibasilar atelectasis. Electronically Signed by Eduard Kate MD 05/28/2019 10:37 A
--- NOTE | 2019-05-28 10:47 | REP ---
Clinical: Leukocytosis. History of renal failure. Technique: Axial noncontrast images from the lung bases to the pubic symphysis with coronal and sagittal re-formations. Findings: Bibasilar atelectasis. Liver, spleen, pancreas, gallbladder, bilateral adrenal glands and kidneys are essentially normal for noncontrast evaluation. The enteric system is without obvious obstruction or acute inflammatory process. Pelvis demonstrates Victor catheter in collapsed bladder and age-appropriate uterus/adnexa. No ascites. No free air. No adenopathy. Atherosclerotic changes to the aorta and vasculature without aneurysm. Musculoskeletal structures demonstrate degenerative changes without focal osseous abnormality. Impression: Somewhat limited examination due to respiratory motion artifact. No obvious acute abdominopelvic pathology appreciated. Electronically Signed by Eduard Kate MD 05/28/2019 10:39 A
[2019-05-28] MEDS: amLODIPine 5 MG TAB PO SCH (11:35)
--- NOTE | 2019-05-28 11:53 | IPNPDOC ---
Subjective Date Seen The patient was seen on 05/28/19. Subjective Chief Complaint/HPI has a slight headache. no other complaints. Denies SOB Constitutional: Denies: Chills, Fever Pulmonary: Denies: Dyspnea, Cough Cardiovascular: Denies: Chest Pain, Palpitations Gastrointestinal: Denies: Nausea, Vomiting, Abdominal Pain, Diarrhea, Constipation Objective Physical Examination General Exam: Positive: Alert, No Acute Distress Eye Exam: Positive: Conjunctiva & lids normal; Negative: Sclera icteric Neck Exam: Negative: Lymphadenopathy Chest Exam: Positive: Clear to auscultation, Normal air movement; Negative: Rales, Rhonchi, Wheezing Heart Exam: Positive: Rate Normal, Regular Rhythm, Normal S1, Normal S2; Negative: Murmurs Abdomen Exam: Positive: Normal bowel sounds, Soft; Negative: Tenderness Extremity Exam: Positive: Edema (1+ edema BL), Normal pulses Psych Exam: Positive: Mental status NL Assessment /Plan Assessment Patient seen, agree with note below. Creatinine remains high but electrolytes are better, and she did not require dialysis today. Labwork largely still pending. Appreciate nephrology's assistance. -- CDT Problems (1) Acute renal failure Status: Acute Discussed With: [employer] D[employer] Specialist Problem Specific Plan: Consult Specialist, Monitor Clinically, Repeat Labs Problem Text: 05/28 - Per Nephrology - making some urine now. Holding dialysis today. Will likely give furthers Lasix and monitor urine output If renal function continues to improve and making urine, may be able to d/c catheter and go home [facility] 05/27/19: management per nephrology. The etiology of her renal failure is not clear. It seems likely that her simultaneous use of ibuprofen (especially 800mg q4-6h), naproxen, and aspirin play a role. It is also possible that a UTI now pyelonephritis is part of the picture. She is going to be dialyzed to remove the needed metabolic byproducts as well as help control her potassium. She will get a temporary dialysis catheter placed today. After she has several sessions of dialysis we will reassess the need for a more permanent solution. Nephro is also in the process of looking at other etiologies for the ARF including a nephridities work up. (2) Acidosis, metabolic, with respiratory acidosis Status: Acute Discussed With: [employer] Specialist Problem Specific Plan: Consult Specialist, Monitor Clinically, Repeat Labs Problem Text: 05/27/19: ABG has stabilized as of this morning. Transition to med/surg with telemetry due to electrolyte disturbance. This is a combination of stress of the respiratory compromise and the renal failure. Treatment will be geared at fixing these component parts. She currently requires ICU care for this problem. (3) Leukocytosis Status: Acute Problem Text: 05/28 - trending down - no source identified per CT abd/pelvis. CT chest showed Atelectasis Encourage Is WBC of 30,000 today. no Significant source of infection noted at this time. Negative blood cultures. urine cx pending. Questionable hematologic/malignant r esponse. W/u ordered and results are pending. (4) Hyperkalemia Status: Resolved Discussed With: [employer] D[employer] Specialist Problem Specific Plan: Consult Specialist, Repeat Labs Problem Text: She has already been treated with albuterol, insulin and glucose, calcium gluconate, and Kayexalate. She will be dialyzed later this afternoon. Nephrology is assisting with management of this issue; we appreciate their input. (5) SIRS (systemic inflammatory response syndrome) Status: Resolved Response to Treatment: Improving Problem Specific Plan: Monitor Clinically, Repeat Labs Problem Text: 05/28 - No further abx She presented with a leukocytosis, tachycardia, and acute renal failure. She is currently covered with vancomycin and Zosyn. Blood and urine cultures are pending along with a MRSA screen. (6) DM (diabetes mellitus), type 2 Status: Chronic Response to Treatment: Stable Problem Specific Plan: Repeat Tests Problem Text: 05/28 - Blood sugars are low - not requiring coverage - D/C SSI Her recent BGL have been well controlled. Her metformin is on hold. She is on AC and HS finger sticks with an ISS for now. (7) Hypertension Problem Text: BP is stable and if anything low. Her antihypertensives (chlorthalidone and lisinopril) are on hold due to MARSHALL (8) Chronic pain Problem Text: She is too ill to complain of this right now. However, she must be carefully counseled to avoid NSAIDs once she is able to understand this better. I believe that accidental NSAID overdose plays a significant role in this admission. (9) Depression Status: Chronic Problem Text: She is ordered her home dose of fluoxetine. Plan/VTE VTE Prophylaxis Ordered?: Yes (SQ heparin) Plan Therapy: PT, OT Disposition Patient is unsteady and had some falls at home. PT ordered VS, I&O, 24H, Fishbone Vital Signs/I&O Vital Signs Date Time Temp Pulse Resp B/P (MAP) Pulse Ox O2 Delivery O2 Flow Rate FiO2 05/28/19 11:35 149/71 05/28/19 06:00 96.6 97 18 92 05/26/19 23:30 30 05/26/19 17:30 2.0 05/25/19 23:27 Room Air I&O- Last 24 Hours up to 6 AM 05/28/19 06:00 Intake Total 780 ml Output Total 3300 ml Balance -2520 ml Laboratory Data 24H LABS Laboratory Tests 2 05/27/19 12:57: Bedside Glucose (Misc Panel) 99 05/27/19 16:52: Bedside Glucose (Misc Panel) 82 05/27/19 21:10: Bedside Glucose (Misc Panel) 71L 05/28/19 05:28: Nucleated Red Blood Cells % (auto) 0.1H, Anion Gap 11, Glomerular Filtration Rate 9.4L, Blood Urea Nitrogen 64H, Creatinine 4.98H, Sodium Level 136, Potassium Level 4.5, Chloride Level 102, Carbon Dioxide Level 23, Calcium Level 8.6L 05/28/19 11:03: Bedside Glucose (Misc Panel) 86 CBC/BMP Laboratory Tests 05/28/19 05:28 Red Blood Count 4.01, Mean Corpuscular Volume 87.5, Mean Corpuscular Hemoglobin 28.4, Mean Corpuscular Hemoglobin Concent 32.5, Red Cell Distribution Width 15.9 H, Calcium Level 8.6 L Microbiology Microbiology 05/25/19 Blood Culture - Preliminary, Resulted No Growth after 48 hours. All Specime... 05/25/19 Blood Culture - Preliminary, Resulted No Growth after 48 hours. All Specime... 05/26/19 MRSA Screen - Final, Complete 05/25/19 Urine Culture - Final, Complete MERCEDES GUEVARA PA-C May 28, 2019 11:52 FLORIAN HUANG DO May 28, 2019 23:58
[2019-05-28] MEDS ORDERED: FUROSEMIDE 40 MG/4 ML VIAL (J1940) IV ONE (12:00)
[2019-05-28] MEDS ORDERED: ACETAMINOPHEN TAB 650MG DOSE (2X325MG) PO PRN (12:30)
--- NOTE | 2019-05-28 13:17 | CCN ---
DATE OF SERVICE: 05/28/2019 The patient was seen and examined this morning during bedside rounds. The patient reports some fatigue today, but her breathing has improved overall. She continues to have an occasional nonproductive cough, which she reports is chronic and has not worsened. She otherwise denies any fevers or chills. No abdominal pain. No nausea or vomiting. No diarrhea. The patient had another session of dialysis yesterday, which she tolerated well. She has been on her bilateral positive airway pressure (BiPAP) tabletop overnight, which she has been tolerating. PHYSICAL EXAMINATION: Temperature 96.6, pulse 97, respirations 18, blood pressure 175/80, oxygen (O2) saturation 92% on room air. Input 780, output 3 liters, net negative approximately 2.2 liters. General: The patient is a morbidly obese female sitting in a chair not in any acute distress. Is not using any accessory muscles for respirations. She is awake, alert, and oriented times three, and responding appropriately. HEENT: Normocephalic, atraumatic. Mucous membranes are moist. Neck is supple. Unable appreciate jugular venous distention (JVD) due to body habitus. Cardiovascular: Regular rate and rhythm. Normal S1, S2. Unable to appreciate any murmurs. Pulmonary: Some coarse breath sounds bilaterally with some faint crackles at the bases but no wheezing or rhonchi. Abdomen is a morbidly obese, soft, nontender. Lower extremities: There is a bilateral pitting edema, which is slightly improved. There is some tenderness to palpation in her lower extremities, which is chronic. LABORATORIES: WBC 19.9, hemoglobin 11.4, platelets 202. Chemistry: Sodium is 136, potassium is 4.5, chloride is 102, bicarbonate is 23, BUN is 64, creatinine is 4.98, glucose is 88. IMAGING: CT chest shows atelectasis in the bases bilaterally. There are faint areas of ground-glass opacities noted. There is also some pleural thickening noted bilaterally in the dependent portions of the lung. There is no significant adenopathy. There is degenerative spinal disease changes. CT abdomen and pelvis. On the report, showed essentially normal liver, spleen, pancreas, gallbladder, and adrenals with this noncontrast evaluation. Gallbladder did appear enlarged but no obvious evidence of gallbladder wall thickening. There was no significant adenopathy noted. No ascites. Musculoskeletal structures had degenerative changes without focal osseous abnormalities. ASSESSMENT AND PLAN: Ms. Mathews is a 58-year-old female with a history of asthma, current active smoker, gastroesophageal reflux disease (GERD), hypertension, osteoarthritis, morbid obesity, depression, and diabetes who initially presented with falls and worsening back and hip pain for the past few days. The patient was found to be in acute renal failure with significant hyperkalemia and non-anion gap metabolic acidosis. She was noted to be more lethargic, and her arterial blood gas (ABG) showed a combined metabolic and respiratory acidosis, so she was placed on BiPAP. The patient also likely with a high suspicion of obstructive sleep apnea (MAUREEN), as she was noted to have apneic episodes during her admission and also obesity hypoventilation syndrome (OHS), given some evidence of chronic hypercarbia. With BiPAP and diuresis, the patient's acidosis and her respiratory status has improved. Her ABGs showed improvement in her previous metabolic acidosis and acute respiratory acidosis. The patient has been on BiPAP at 16/8 and FIO2 of 30% with tabletop at night. Can continue her with BiPAP while she is admitted for a suspected diagnosis of MAUREEN/OHS. She will need a sleep study as an outpatient for formal diagnosis and for titration. Continue with dialysis as per renal. The patient has acute renal failure, which is likely multifactorial in the setting of some of her home medications, as well as nonsteroidal antiinflammatory drug (NSAID) use. She does have a protein gap noted on admission, and she does have an serum protein electrophoresis (SPEP) and urine protein electrophoresis (UPEP) pending. She does have significant leukocytosis, and her procalcitonin was elevated. However, a possible infectious etiology is unclear at this time. Her CT chest showed evidence of some atelectasis but no focal opacities or consolidations consistent with pneumonia, and her CT abdomen and pelvis was also nondiagnostic for any possible infectious source. Her urine culture and her blood cultures have also been negative. Given some concerning for possible gammopathy with her leukocytosis, she may require potential bone marrow biopsy at some point if it is persistent. Continue with broad-spectrum antibiotics at this time and continue to trend her procalcitonin for aid in de-escalation of her antibiotics. Continue with DuoNebs. Deep venous thrombosis (DVT) prophylaxis with heparin. FULL CODE. TOTAL CRITICAL CARE TIME SPENT: Not including any procedures, approximately 35 minutes. Please do not hesitate to call if any further questions or concerns. The patient can followup with pulmonary in 1-2 weeks after discharge for a sleep apnea evaluation.
--- NOTE | 2019-05-28 13:21 | IPN ---
DATE OF SERVICE: 05/28/2019 SUBJECTIVE: The patient was seen and examined at the bedside today morning. She is sitting on the sofa. She still has an indwelling Victor catheter. The patient was dialyzed yesterday for the second time. She tolerated the hemodialysis procedure well. The patient is nonoliguric at this point, she is making a very good amount of urine. Electrolytes are within the acceptable range. Her leukocytosis is significantly better today as compared with yesterday after stopping the antibiotic and starting her on antifungal. The patient also got the CAT scan of the chest, abdomen, and pelvis done which did not show any significant pathology. Patient is symptomatically getting a lot better. OBJECTIVE: Vital signs: Temperature is 96.6 degrees Fahrenheit, blood pressure 175/80, pulse is 97, respiratory rate of 18, saturating 92% on room air. Intake and output urine output recorded since overnight is 1.6 liters. She also got 2 liters removed during dialysis yesterday. Weight in the bed scale is 179.4 kg. PHYSICAL EXAMINATION General: The patient is awake, alert, oriented times three, morbidly obese, laying in bed in no apparent distress. Head and neck exam extraocular muscles intact. Pupils equally round and reactive to light. Mucous membranes are moist. Neck is supple. There is no jugular venous distention (JVD). Cardiovascular: S1 and S2, regular rate. 2+ edema of the bilateral lower extremities. Respiratory: Mildly decreased breath sounds with mild respiratory crackles bilaterally at the bases. Abdomen: Soft, obese, positive bowel sounds. Genitourinary: Indwelling Victor catheter. Urine in the bag is light yellow. Musculoskeletal: 2+ edema of the bilateral lower extremities, otherwise normal range of movement. KNAPSACK SPRAYER: No focal deficit. Power is 5/5 in all extremities. LAB REVIEW: CBC showed a WBC of 19.9, hemoglobin 11.4, platelets of 262. BMP today morning showed sodium 136, potassium 4.5, chloride 102, bicarb 23, BUN 64, creatinine is 4.9, calcium 8.6. IMAGING STUDIES: CAT scan of the abdomen and pelvis with oral contrast only showed limited exam due to respiratory motion artifact and obvious acute abdominopelvic pathology. CAT scan of the chest done yesterday without contrast showed mild bibasilar atelectasis. CURRENT INPATIENT MEDICATIONS: The patient's medications were all reviewed. She was started on IV Diflucan. IV antibiotics have been stopped. The patient has been started on amlodipine 5 mg by mouth daily for hypertension. I have also given her a dose of furosemide 40 mg IV time one dose. ASSESSMENT AND PLAN: 1. Acute renal failure. The patient has acute nonoliguric renal failure. She has been dialyzed twice during this admission. Her urine output is improving. I would hold her dialysis at this point. Continue to monitor for improvement of renal function. 2. Bilateral lower extremity edema. The patient will be given a dose of Lasix 40 mg IV times one dose. 3. Hyperkalemia. Potassium has improved after dialysis. 4. Persistent leukocytosis. It is most likely secondary to genitourinary fungal infection. She was started on fluconazole yesterday. Leukocytosis is significantly better. Antibiotics have been stopped. Cultures have been negative so far. 5. Proteinuria the patient had 2.4 grams of protein on 24-hour urine. Autoimmune serology is all pending. Her renal function is improving. No urgent need of biopsy at this point. 6. Metabolic acidosis. Acidosis has resolved after dialysis. Serum bicarb level is 23 today. DISPOSITION: I am hopeful that the patient's renal function would improve during this hospitalization and she would not need outpatient dialysis. I would continue to monitor her renal function.
[2019-05-28 14:00] VITALS: BP 175/75
[2019-05-28 14:42] LABS: ALBUMIN 2.53 GM/DL (3.29-5.55); ALBUMIN % 45.1 % (55.8-66.1); ALPHA-1-GLOBULIN % 11.2 % (2.9-4.9); ALPHA-2-GLOBULINS % 17.8 % (7.1-11.8); BETA-1-GLOBULINS % 5.8 % (4.7-7.2); BETA-2-GLOBULINS % 9.2 % (3.2-6.5); GAMMA GLOBULIN % 10.9 % (11.1-18.8)
[2019-05-28 14:43] LABS: ALPHA-1-GLOBULINS 0.63 GM/DL (0.17-0.41); BETA-1-GLOBULINS 0.32 GM/DL (0.28-0.60); BETA-2-GLOBULINS 0.52 GM/DL (0.19-0.55); GAMMA GLOBULINS 0.61 GM/DL (0.65-1.58)
[2019-05-28] MEDS: FLUCONAZOLE 200 MG in APPROPRIATE DILUENT 1 EA IV SCH (20:09)
[2019-05-28 22:00] VITALS: BP 155/75
[2019-05-28] MEDS: traZODone 100 MG TAB PO SCH (22:27)
[2019-05-29] MEDS: IPRATROPIUM 0.5MG/ALBUTEROL 2.5MG INH SOL UD 3ML (DUONEB)(J7620) NEB SCH ×4 (01:37→20:00)
[2019-05-29 06:00] VITALS: BP 138/78
[2019-05-29 06:42] LABS: HEMATOCRIT 35.4 % (36.0-47.0); HEMOGLOBIN 11.8 g/dl (12.0-15.5); MEAN CORPUSCULAR HEMOGLOBIN 29.3 pg (27.0-33.0); MEAN CORPUSCULAR HGB CONC 33.3 g/dl (32.0-36.5); MEAN CORPUSCULAR VOLUME 87.8 fl (80.0-96.0); PLATELET COUNT, AUTOMATED 243 10^3/uL (150-450); RED BLOOD COUNT 4.03 10^6/uL (4.00-5.40); WHITE BLOOD COUNT 20.5 10^3/uL (4.0-10.0)
[2019-05-29 07:12] LABS: ALBUMIN 2.1 GM/DL (3.2-5.2); CALCIUM LEVEL 8.5 MG/DL (8.8-10.2); CREATININE FOR GFR 5.55 MG/DL (0.55-1.30); GLOMERULAR FILTRATION RATE 8.3 (>45); PHOSPHORUS LEVEL 5.4 MG/DL (2.5-4.9); POTASSIUM SERUM 4.5 MEQ/L (3.5-5.1)
[2019-05-29] MEDS: OMEPRAZOLE 20 MG CAP PO SCH (09:23)
[2019-05-29] MEDS: FLUoxetine 20 MG CAP PO SCH (09:23)
[2019-05-29] MEDS: amLODIPine 5 MG TAB PO SCH (09:25)
[2019-05-29] MEDS: HEPARIN SOD (PORCINE) 5000 UNITS/ML VIAL SC SCH ×2 (09:25→20:06)
[2019-05-29] MEDS: NYSTATIN 100,000 UNITS/GM TOPICAL PWD 15 GM TOP SCH ×2 (09:25→20:06)
[2019-05-29] MEDS ORDERED: HEPARIN 1,000 UNITS/ML 10ML VIAL (FOR RADIOLOGY& DIALYSIS ONLY) IV ONE (11:00)
[2019-05-29] MEDS ORDERED: HEPARIN 1,000 UNITS/ML 10ML VIAL (FOR RADIOLOGY& DIALYSIS ONLY) XX ONE (11:00)
[2019-05-29 14:00] VITALS: BP 143/65
[2019-05-29] MEDS: FLUCONAZOLE 200 MG in APPROPRIATE DILUENT 1 EA IV SCH (20:05)
--- NOTE | 2019-05-29 21:57 | IPN ---
DATE: 05/29/2019 SUBJECTIVE The patient was seen and examined at the bedside today morning during hemodialysis. She is tolerating the hemodialysis procedure well. Her last 24-hour urine output and trend of her creatinine was noted. There is no significant improvement in the renal function. However, the patient is nonoliguric and she responded well to the diuretic dose yesterday. She denies any active complaints. OBJECTIVE Vital signs: Temperature is 98.2 degrees Fahrenheit. Blood pressure 161/78, pulse is 103, respiratory rate of 90, saturating 93% on room air. Intake and output: Urine output recorded as 3.9 liters yesterday, 2.5 liters so far today since overnight. Weight in the bed scale is not available. PHYSICAL EXAMINATION General: The patient is awake, alert, oriented times three, morbidly obese, laying in bed. Getting hemodialysis done. Head and neck: Extraocular muscles intact. Pupils equally round and reactive to light. Mucous membranes are moist. Neck is supple. She has a right IJ tunneled hemodialysis catheter. Cardiovascular: S1, S2. Regular rate. 2+ edema of the bilateral lower extremities. Respiratory: Chest is clear to auscultation bilaterally. Bilateral equal air entry. No rales or rhonchi. Abdomen: Soft, obese, positive bowel sounds. Nontender. Genitourinary: She has an indwelling Victor catheter. Musculoskeletal: 2+ edema of the bilateral lower extremities. MEDICAL ENGINEER: No focal deficit. Power is 5/5 in all extremities. LAB REVIEW: CBC showed a WBC of 20.5, hemoglobin is 11.8, platelets ae 243. BMP showed sodium 136, potassium 4.5, chloride 102, bicarb 22, BUN 73, creatinine is 5.58, it was 4.9 yesterday. Calcium 8.5, phosphorus is 5.4. CURRENT INPATIENT MEDICATIONS: The patient's medications were all reviewed by me. There is no change in the medications today as compared with yesterday. ASSESSMENT AND PLAN: 1. Acute renal failure. The patient is nonoliguric. She responded very well to a dose of Lasix yesterday. She made almost 4 liters of urine. However, there is no significant improvement in the creatinine and BUN actually went up yesterday. The patient is being dialyzed more for clearance today. I am still hopeful that the patient would have renal recovery. Continue to monitor for renal improvement. 2. Bilateral lower extremity edema. Patient is making good amount of urine. I am going to have 1.5 liters of fluid removed. Volume status is improving. 3. Hypertension. The patient has been started on amlodipine 5 mg by mouth daily. Optimization of volume status is also improving the blood pressure. 4. Leukocytosis. Leukocytosis is improving. Continue current dose of fluconazole. 5. Proteinuria. The patient at 2.4 grams of proteinuria. Autoimmune serology is still pending. SPEP and UPEP showed no M spike.
[2019-05-29 22:00] VITALS: BP 145/75
[2019-05-29] MEDS: traZODone 100 MG TAB PO SCH (22:22)
[2019-05-30] MEDS: IPRATROPIUM 0.5MG/ALBUTEROL 2.5MG INH SOL UD 3ML (DUONEB)(J7620) NEB SCH ×4 (01:36→20:00)
--- NOTE | 2019-05-30 02:08 | IPNPDOC ---
Subjective Date Seen The patient was seen on 05/29/19. Subjective Chief Complaint/HPI MARSHALL Events since last encounter Patient with worsening creatinine, though no hyperkalemia today, still requiring dialysis. She continues to make urine. Denies trouble with her appetite, and notes that the chronic edema in her legs is somewhat improved. She is disheartened that her renal function is not improving. Some of her labwork is still pending, Constitutional: Reports: Malaise; Denies: Chills, Fever Pulmonary: Denies: Dyspnea, Cough Cardiovascular: Denies: Chest Pain Gastrointestinal: Denies: Nausea, Vomiting, Abdominal Pain, Diarrhea, Constipation Genitourinary: Reports: Other Symptoms (catheter in place) Objective Physical Examination General Exam: Positive: Alert, No Acute Distress Eye Exam: Positive: Conjunctiva & lids normal; Negative: Sclera icteric ENT Exam: Positive: Other ENT (BiPAP mask on) Neck Exam: Negative: Lymphadenopathy Chest Exam: Positive: Clear to auscultation, Normal air movement; Negative: Rales, Rhonchi, Wheezing Heart Exam: Positive: Rate Normal, Regular Rhythm, Normal S1, Normal S2; Negative: Murmurs Telemetry: Positive: No significant arrhythmia Abdomen Exam: Positive: Normal bowel sounds, Soft; Negative: Tenderness Extremity Exam: Positive: Edema (1+ edema BL), Normal pulses Psych Exam: Positive: Mental status NL Assessment /Plan Problems (1) Acute renal failure Status: Acute Discussed With: Tie Puller Problem Specific Plan: Consult Specialist, Monitor Clinically, Repeat Labs Problem Text: 05/29 -- Patient continues to make urine but creatinine is worsening, received dialysis today. Appreciate nephrology's assistance. 05/28 - Per Nephrology - making some urine now. Holding dialysis today. Will likely give furthers Lasix and monitor urine output If renal function continues to improve and making urine, may be able to d/c catheter and [facility] 05/27/19: management per nephrology. The etiology of her renal failure is not clear. It seems likely that her simultaneous use of ibuprofen (especially 800mg q4-6h), naproxen, and aspirin play a role. It is also possible that a UTI now pyelonephritis is part of the picture. She is going to be dialyzed to remove the needed metabolic byproducts as well as help control her potassium. She will get a temporary dialysis catheter placed today. After she has several sessions of dialysis we will r eassess the need for a more permanent solution. Nephro is also in the process of looking at other etiologies for the ARF including a nephridities work up. (2) Acidosis, metabolic, with respiratory acidosis Status: Acute Discussed With: Tie Puller Problem Specific Plan: Consult Specialist, Monitor Clinically, Repeat Labs Problem Text: 05/27/19: ABG has stabilized as of this morning. Transition to med/surg with telemetry due to electrolyte disturbance. This is a combination of stress of the respiratory compromise and the renal failure. Treatment will be geared at fixing these component parts. She currently requires ICU care for this problem. (3) Leukocytosis Status: Acute Problem Text: 05/29 -- Abx had been stopped yesterday, and I stopped fluconazole as well. This is improving, continue to trend, workup still pending, though no M spike seen. 05/28 - trending down - no source identified per CT abd/pelvis. CT chest showed Atelectasis Encourage Is WBC of 30,000 today. no Significant source of infection noted at this time. Negative blood cultures. urine cx pending. Questionable hematologic/malignant response. W/u ordered and results are pending. (4) Hyperkalemia Status: Resolved Discussed With: Tie Puller Problem Specific Plan: Consult Specialist, Repeat Labs Problem Text: She has already been treated with albuterol, insulin and glucose, calcium gluconate, and Kayexalate. She will be dialyzed later this afternoon. Nephrology is assisting with management of this issue; we appreciate their input. (5) SIRS (systemic inflammatory response syndrome) Status: Resolved Response to Treatment: Improving Problem Specific Plan: Monitor Clinically, Repeat Labs Problem Text: 05/28 - No further abx She presented with a leukocytosis, tachycardia, and acute renal failure. She is currently covered with vancomycin and Zosyn. Blood and urine cultures are pending along with a MRSA screen. (6) DM (diabetes mellitus), type 2 Status: Chronic Response to Treatment: Stable Problem Specific Plan: Repeat Tests Problem Text: 05/28 - Blood sugars are low - not requiring coverage - D/C SSI Her recent BGL have been well controlled. Her metformin is on hold. She is on AC and HS finger sticks with an ISS for now. (7) Hypertension Problem Text: BP is stable and if anything low. Her antihypertensives (chlorthalidone and lisinopril) are on hold due to MARSHALL (8) Chronic pain Problem Text: She is too ill to complain of this right now. However, she must be carefully counseled to avoid NSAIDs once she is able to understand this better. I believe that accidental NSAID overdose plays a significant role in this admission. (9) Depression Status: Chronic Problem Text: She is ordered her home dose of fluoxetine. Plan/VTE VTE Prophylaxis Ordered?: Yes (SQ heparin) Plan Therapy: PT, OT VS, I&O, 24H, Fishbone Vital Signs/I&O Vital Signs Date Time Temp Pulse Resp B/P (MAP) Pulse Ox O2 Delivery O2 Flow Rate FiO2 05/29/19 22:00 98.4 100 19 145/75 (98) 95 05/26/19 23:30 30 05/26/19 17:30 2.0 05/25/19 23:27 Room Air I&O- Last 24 Hours up to 6 AM 05/30/19 06:00 Intake Total 1300 ml Output Total 4090 ml Balance -2790 ml Laboratory Data 24H LABS Laboratory Tests 2 05/29/19 06:27: Nucleated Red Blood Cells % (auto) 0.0, Blood Urea Nitrogen 73H, Creatinine 5.55H, Sodium Level 136, Potassium Level 4.5, Chloride Level 102, Carbon Dioxide Level 22, Anion Gap 12, Glomerular Filtration Rate 8.3L, Calcium Level 8.5L, Phosphorus Level 5.4#H, Albumin 2.1L 05/29/19 16:37: Bedside Glucose (Misc Panel) 133H 05/29/19 20:15: Bedside Glucose (Misc Panel) 121H CBC/BMP Laboratory Tests 05/29/19 06:27 Red Blood Count 4.03, Mean Corpuscular Volume 87.8, Mean Corpuscular Hemoglobin 29.3, Mean Corpuscular Hemoglobin Concent 33.3, Red Cell Distribution Width 15.7 H, Anion Gap 12 Microbiology Microbiology 05/25/19 Blood Culture - Preliminary, Resulted No Growth after 72 hours. All specime... 05/25/19 Blood Culture - Preliminary, Resulted No Growth after 72 hours. All specime... 05/26/19 MRSA Screen - Final, Complete 05/25/19 Urine Culture - Final, Complete FLORIAN HUANG DO May 30, 2019 02:07
[2019-05-30 06:00] VITALS: BP 150/70
[2019-05-30 06:56] LABS: HEMATOCRIT 36.2 % (36.0-47.0); HEMOGLOBIN 11.6 g/dl (12.0-15.5); MEAN CORPUSCULAR HEMOGLOBIN 28.3 pg (27.0-33.0); MEAN CORPUSCULAR VOLUME 88.3 fl (80.0-96.0); PLATELET COUNT, AUTOMATED 259 10^3/uL (150-450); WHITE BLOOD COUNT 21.3 10^3/uL (4.0-10.0)
[2019-05-30 09:13] LABS: CALCIUM LEVEL 8.3 MG/DL (8.8-10.2); CREATININE FOR GFR 4.23 MG/DL (0.55-1.30); GLOMERULAR FILTRATION RATE 11.4 (>45); POTASSIUM SERUM 4.9 MEQ/L (3.5-5.1)
[2019-05-30] MEDS: amLODIPine 5 MG TAB PO SCH (09:37)
[2019-05-30] MEDS: HEPARIN SOD (PORCINE) 5000 UNITS/ML VIAL SC SCH ×2 (09:37→21:54)
[2019-05-30] MEDS: FLUoxetine 20 MG CAP PO SCH (09:37)
[2019-05-30] MEDS: OMEPRAZOLE 20 MG CAP PO SCH (09:37)
[2019-05-30] MEDS: NYSTATIN 100,000 UNITS/GM TOPICAL PWD 15 GM TOP SCH ×2 (09:38→21:54)
[2019-05-30] MEDS: DIAPER RELIEF PASTE (DESITIN) 60GM TOP SCH ×3 (11:29→21:55)
--- NOTE | 2019-05-30 12:17 | IPNPDOC ---
Subjective Date Seen The patient was seen on 05/30/19. Subjective Chief Complaint/HPI Pt this morning without new concerns. She c/o back pain that isn't new. States she has had her sanchez taken out this morning, hasn't urinated since it was out. General: Denies: Fatigue Constitutional: Denies: Chills, Fever Pulmonary: Denies: Dyspnea, Cough Cardiovascular: Denies: Chest Pain, Palpitations Gastrointestinal: Denies: Nausea, Vomiting, Diarrhea Neurological: Denies: Weakness Psych: Reports: Mood Normal Objective Physical Examination General Exam: Positive: Alert, No Acute Distress (super obese) Neck Exam: Negative: Lymphadenopathy Chest Exam: Positive: Clear to auscultation, Normal air movement Heart Exam: Positive: Rate Normal, Regular Rhythm, Normal S1, Normal S2 Telemetry: Positive: No significant arrhythmia Abdomen Exam: Positive: Normal bowel sounds, Soft Extremity Exam: Positive: Edema (trace), Normal pulses Psych Exam: Positive: Mental status NL Assessment /Plan Problems (1) Leukocytosis Status: Acute Problem Text: Ddx: infection, leukemia, reactive etiology also causing AKI3 05/29 last dose flucon // 629 vanco and Zosyn 05/30 repeat BCX x 2, check diff/peripheral smear/LDH, 05/27 CT chest/AP NAD 04/2019 BCX2, UCX NG 03/2019 WBC baseline 7.7 c normal diff (2) Acute renal failure Status: Acute Discussed With: Library Information Technician Problem Specific Plan: Consult Specialist, Monitor Clinically, Repeat Labs Problem Text: 05/30 mgmt per nephrology, slight improvement in GFR sp HD 05/27 -urine for eos working etiology medication induced (on admission on lisin 20, met 500, nap 500 BID, CTD 25, asa 325-although on same regimen 03/2019 cr at baseline 0.9, ROBERT/creatinine 27) 05/26 KENNY/ANCA P 05/26 SPEP s M spike (3) Acidosis, metabolic, with respiratory acidosis Status: Acute Discussed With: Library Information Technician Problem Specific Plan: Consult Specialist, Monitor Clinically, Repeat Labs Problem Text: 05/27/19: ABG has stabilized as of this morning. Transition to m ed/surg with telemetry due to electrolyte disturbance. This is a combination of stress of the respiratory compromise and the renal failure. Treatment will be geared at fixing these component parts. She currently requires ICU care for this problem. (4) DM (diabetes mellitus), type 2 Status: Chronic Response to Treatment: Stable Problem Specific Plan: Repeat Tests Problem Text: diet controlled (5) Hypertension Problem Text: BP is stable and if anything low. Her antihypertensives (chlorthalidone and lisinopril) are on hold due to MARSHALL (6) Chronic pain Problem Text: She is too ill to complain of this right now. However, she must be carefully counseled to avoid NSAIDs once she is able to understand this better. I believe that accidental NSAID overdose plays a significant role in this admission. (7) Depression Status: Chronic Problem Text: Stable on HD fluox 20 Plan/VTE VTE Prophylaxis Ordered?: Yes (SQ heparin) Plan Therapy: PT, OT VS, I&O, 24H, Fishbone Vital Signs/I&O Vital Signs Date Time Temp Pulse Resp B/P (MAP) Pulse Ox O2 Delivery O2 Flow Rate FiO2 05/30/19 09:37 96 155/81 05/30/19 06:00 98.7 19 97 05/26/19 23:30 30 05/26/19 17:30 2.0 05/25/19 23:27 Room Air I&O- Last 24 Hours up to 6 AM 05/30/19 06:00 Intake Total 1740 ml Output Total 5040 ml Balance -3300 ml Laboratory Data 24H LABS Laboratory Tests 2 05/29/19 16:37: Bedside Glucose (Misc Panel) 133H 05/29/19 20:15: Bedside Glucose (Misc Panel) 121H 05/30/19 06:11: Nucleated Red Blood Cells % (auto) 0.0, Anion Gap 15, Glomerular Filtration Rate 11.4L, Blood Urea Nitrogen 47H, Creatinine 4.23H, Sodium Level 139, Potassium Level 4.9, Chloride Level 105, Carbon Dioxide Level 19L, Calcium Level 8.3L 05/30/19 12:07: Bedside Glucose (Misc Panel) 90 CBC/BMP Laboratory Tests 05/30/19 06:11 Red Blood Count 4.10, Mean Corpuscular Volume 88.3, Mean Corpuscular Hemoglobin 28.3, Mean Corpuscular Hemoglobin Concent 32.0, Red Cell Distribution Width 15.7 H, Calcium Level 8.3 L Microbiology Microbiology 05/25/19 Blood Culture - Preliminary, Resulted No Growth after 72 hours. All specime... 05/25/19 Blood Culture - Preliminary, Resulted No Growth after 72 hours. All specime... 05/26/19 MRSA Screen - Final, Complete 05/25/19 Urine Culture - Final, Complete NEIDA DEAL PA-C May 30, 2019 12:17 Jhonny Mosher M.D. May 30, 2019 13:31
[2019-05-30 14:00] VITALS: BP 143/69
[2019-05-30 14:45] LABS: HEMATOCRIT 37.1 % (36.0-47.0); HEMOGLOBIN 11.9 g/dl (12.0-15.5); MEAN CORPUSCULAR VOLUME 90.5 fl (80.0-96.0); WHITE BLOOD COUNT 20.6 10^3/uL (4.0-10.0)
[2019-05-30 14:46] LABS: MEAN CORPUSCULAR HGB CONC 32.1 g/dl (32.0-36.5); PLATELET COUNT, AUTOMATED 239 10^3/uL (150-450)
--- NOTE | 2019-05-30 14:52 | IPN ---
DATE: 05/30/2019 SUBJECTIVE: Patient was seen and examined at the bedside today morning. She was actually sitting in the sofa. She continues to have Victor catheter. She still has a very good urine output. She was dialyzed yesterday; 1.5 liters of fluid was removed. Patient complains of rash in the gluteal area and is complaining of some ointment to have helped relieve the rash and pain. OBJECTIVE: VITAL SIGNS: Temperature is 98.7 degrees Fahrenheit, blood pressure 150/70, pulse is 100, respiratory rate of 19, saturating 97% on room air. INTAKE AND OUTPUT: Urine output recorded is 3.5 liters yesterday, 958 mL so far today since overnight. Ultrafiltration with hemodialysis was 1.5 liters. Weight in the bed scale is not available. PHYSICAL EXAMINATION: GENERAL: Patient is awake, alert, oriented times three, morbidly obese, sitting in the sofa no apparent distress, wearing nasal cannula. HEAD AND NECK EXAM: Extraocular muscles intact. Pupils equally round and reactive to light. Mucous membranes are moist. She has a right internal jugular (IJ) tunneled hemodialysis catheter. CARDIOVASCULAR: S1, S2. Regular rate. 2+ edema of the bilateral lower extremities. RESPIRATORY: Chest is clear to auscultation bilaterally. Bilateral equal air entry. No rales or rhonchi. ABDOMEN: Soft, obese, positive bowel sounds. Nontender. GENITOURINARY: She has an indwelling Victor catheter. MUSCULOSKELETAL: 2+ edema of the bilateral lower extremities. Otherwise normal range of movement. 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 Power is 5/5 in all extremities. LABORATORY REVIEW: Complete blood count (CBC) showed a WBC 21.3, hemoglobin is 11.6, platelets are 259. Basic metabolic panel (BMP) showed sodium 139, potassium 4.9, chloride 105, bicarbonate 19, BUN 47, creatinine is 4.2. CURRENT INPATIENT MEDICATIONS: Patient 's medications were all reviewed by me. There is no change in the medications apart from the fluconazole, which was stopped today morning. ASSESSMENT AND PLAN: 1. Acute renal failure. Patient is nonoliguric. She still has a Victor catheter. I am going to have a Victor catheter removed. Continue to monitor urine output. She was dialyzed yesterday. If I do not see any improvement in the creatinine tomorrow, she will get another session of hemodialysis tomorrow morning as well. 2. Bilateral lower extremity edema. Patient has a good urine output. No need of diuretics at this time. Edema is improving. 3. Hypertension. Continue current dose of amlodipine. 4. Leukocytosis. Patient has mild persistent leukocytosis. Fluconazole was stopped by primary team. All the cultures are negative so far. 5. Proteinuria. Autoimmune serology is pending. Serum protein electrophoresis (SPEP) and urine protein electrophoresis (UPEP) was normal. Patient had 2.4 grams of protein on 24-hour urine. Renal function is gradually improving.
[2019-05-30 15:12] LABS: ERYTHROCYTE SEDIMENTATION RATE 85 mm/hr (0-30)
[2019-05-30 15:15] LABS: EOSINOPHILS 1 % (0-5); LYMPHOCYTES 17 % (16-52); MONOCYTES 5 % (0-8); NEUTROPHILS 77 % (35-75)
[2019-05-30 15:16] LABS: PLATELET ESTIMATE NORMAL (NORMAL)
[2019-05-30] MEDS: traZODone 100 MG TAB PO SCH (21:54)
[2019-05-30 22:00] VITALS: BP 138/76
[2019-05-31] MEDS: IPRATROPIUM 0.5MG/ALBUTEROL 2.5MG INH SOL UD 3ML (DUONEB)(J7620) NEB SCH ×4 (02:00→20:00)
[2019-05-31 05:55] LABS: HEMATOCRIT 36.2 % (36.0-47.0); HEMOGLOBIN 11.6 g/dl (12.0-15.5); MEAN CORPUSCULAR HEMOGLOBIN 27.9 pg (27.0-33.0); PLATELET COUNT, AUTOMATED 230 10^3/uL (150-450); RED BLOOD COUNT 4.16 10^6/uL (4.00-5.40); WHITE BLOOD COUNT 19.6 10^3/uL (4.0-10.0)
[2019-05-31 06:00] VITALS: BP 143/69
[2019-05-31 06:16] LABS: CALCIUM LEVEL 9.1 MG/DL (8.8-10.2); CREATININE FOR GFR 4.21 MG/DL (0.55-1.30); GLOMERULAR FILTRATION RATE 11.5 (>45); POTASSIUM SERUM 3.8 MEQ/L (3.5-5.1)
[2019-05-31] MEDS: FLUoxetine 20 MG CAP PO SCH (06:18)
[2019-05-31] MEDS: amLODIPine 5 MG TAB PO SCH (06:18)
[2019-05-31] MEDS: NYSTATIN 100,000 UNITS/GM TOPICAL PWD 15 GM TOP SCH ×2 (06:19→21:10)
[2019-05-31] MEDS: HEPARIN SOD (PORCINE) 5000 UNITS/ML VIAL SC SCH ×2 (06:19→21:09)
[2019-05-31] MEDS: DIAPER RELIEF PASTE (DESITIN) 60GM TOP SCH ×3 (06:20→22:23)
[2019-05-31] MEDS: OMEPRAZOLE 20 MG CAP PO SCH (06:21)
[2019-05-31] MEDS ORDERED: HEPARIN 1,000 UNITS/ML 10ML VIAL (FOR RADIOLOGY& DIALYSIS ONLY) IV ONE (10:00)
[2019-05-31] MEDS ORDERED: HEPARIN 1,000 UNITS/ML 10ML VIAL (FOR RADIOLOGY& DIALYSIS ONLY) XX ONE (10:00)
[2019-05-31 10:14] LABS: ANA (HEP2) Negative (.); ANTI DS-DNA AB <1:10 titer (.); ANTI-GLOMERULAR BASEMENT MEMB 3 units (0-20); HEPATITIS B CORE ANTIBODY IGG Negative (Negative)
--- NOTE | 2019-05-31 11:16 | IPNPDOC ---
Subjective Date Seen The patient was seen on 05/31/19. Subjective Chief Complaint/HPI Pt this morning without new concerns. Reports that she is urinating. Dialysis scheduled for today. General: Denies: Fatigue Pulmonary: Denies: Dyspnea, Cough Cardiovascular: Denies: Chest Pain, Palpitations Gastrointestinal: Denies: Nausea, Vomiting Neurological: Denies: Weakness Psych: Reports: Mood Normal Objective Physical Examination General Exam: Positive: Alert, No Acute Distress (super obese) Chest Exam: Positive: Clear to auscultation, Normal air movement Heart Exam: Positive: Rate Normal, Regular Rhythm, Normal S1, Normal S2 Telemetry: Positive: No significant arrhythmia Abdomen Exam: Positive: Normal bowel sounds, Soft Extremity Exam: Positive: Edema (trace), Normal pulses Psych Exam: Positive: Mental status NL Assessment /Plan Assessment Patient seen, agree with note. Mild improvement in renal function today, patient still receiving dialysis. Patient noted some discharge "down there" today, as well as some pain on her bottom. She was moved to bed to further examine the site, and purulent discharge was noted on the chair. She does have a decubitus ulcer, which nursing had already noted. She also has an abscess draining from her perineum, that appears to be contiguous with her L labia majora. Specimen obtained with culture swab. Patient was quite uncomfortable, and I ordered morphine during wound care. US ordered to rule out fistulous tract or loculations. Started on vancomycin and Zosyn. -- CDT Problems (1) Leukocytosis Status: Acute Problem Text: 05/31 WBC remains elevated down from 20.6 to 19.6, cont to monitor. 05/30 Ddx: infection, leukemia, reactive etiology also causing AKI3 05/29 last dose flucon // 629 vanco and Zosyn 05/30 repeat BCX x 2, check diff/peripheral smear/LDH, 05/27 CT chest/AP NAD 04/2019 BCX2, UCX NG 03/2019 WBC baseline 7.7 c normal diff (2) Acute renal failure Status: Acute Discussed With: Tile Setter Apprentice Problem Specific Plan: Consult Specialist, Monitor Clinically, Repeat Labs Problem Text: 05/31 Dialysis planned for today, nonoliguric 05/30 mgmt per nephrology, slight improvement in GFR sp HD 05/27 -urine for eos working etiology medication induced (on admission on lisin 20, met 500, nap 500 BID, CTD 25, asa 325-although on same regimen 03/2019 cr at baseline 0.9, ROBERT/creatinine 27) 05/26 KENNY/ANCA P 05/26 SPEP s M spike (3) Acidosis, metabolic, with respiratory acidosis Status: Acute Discussed With: Tile Setter Apprentice Problem Specific Plan: Consult Specialist, Monitor Clinically, Repeat Labs Problem Text: 05/27/19: ABG has stabilized as of this morning. Transition to med/surg with telemetry due to electrolyte disturbance. This is a combination of stress of the respiratory compromise and the renal failure. Treatment will be geared at fixing these component parts. She currently requires ICU care for this problem. (4) DM (diabetes mellitus), type 2 Status: Chronic Response to Treatment: Stable Problem Specific Plan: Repeat Tests Problem Text: diet controlled (5) Hypertension Problem Text: BP is stable and if anything low. Her antihypertensives (chlorthalidone and lisinopril) are on hold due to MARSHALL (6) Chronic pain Status: Chronic Problem Specific Plan: Monitor Clinically Problem Text: 05/31 no complaints this morning. 05/30 She is too ill to complain of this right now. However, she must be carefully counseled to avoid NSAIDs once she is able to understand this better. I believe that accidental NSAID overdose plays a significant role in this admission. (7) Depression Status: Chronic Problem Text: Stable on HD fluox 20 Plan/VTE VTE Prophylaxis Ordered?: Yes (SQ heparin) Plan Therapy: PT, OT VS, I&O, 24H, Fishbone Vital Signs/I&O Vital Signs Date Time Temp Pulse Resp B/P (MAP) Pulse Ox O2 Delivery O2 Flow Rate FiO2 05/31/19 06:18 80 143/69 05/31/19 06:00 98.4 16 95 05/26/19 23:30 30 05/26/19 17:30 2.0 05/25/19 23:27 Room Air I&O- Last 24 Hours up to 6 AM 05/31/19 06:00 Intake Total 1145 ml Output Total 900 ml Balance 245 ml Laboratory Data 24H LABS Laboratory Tests 2 05/30/19 12:07: Bedside Glucose (Misc Panel) 90 05/30/19 13:51: Immature Granulocyte % (Auto) , Nucleated Red Blood Cells % (auto) 0.0, Neutrophils 77H, Lymphocytes (Manual) 17, Monocytes (Manual) 5, Eosinophils (Manual) 1, Differential Slide Review Report, Platelet Estimate NORMAL, Red Blood Cell Morphology NORMAL, Peripheral Blood Smear Path Consult PERIPHERAL SMEAR, Erythrocyte Sedimentation Rate 85H, Lactate Dehydrogenase 291H 05/30/19 16:30: Bedside Glucose (Misc Panel) 76L 05/30/19 19:45: Bedside Glucose (Misc Panel) 100 05/31/19 05:43: Nucleated Red Blood Cells % (auto) 0.0, Anion Gap 10, Glomerular Filtration Rate 11.5L, Blood Urea Nitrogen 57H, Creatinine 4.21H, Sodium Level 139, Potassium Level 3.8#, Chloride Level 105, Carbon Dioxide Level 24, Calcium Level 9.1 CBC/BMP Laboratory Tests 05/30/19 13:51 Red Blood Count 4.10, Mean Corpuscular Volume 90.5, Mean Corpuscular Hemoglobin 29.0, Mean Corpuscular Hemoglobin Concent 32.1, Red Cell Distribution Width 15.5 H 05/31/19 05:43 Red Blood Count 4.16, Mean Corpuscular Volume 87.0, Mean Corpuscular Hemoglobin 27.9, Mean Corpuscular Hemoglobin Concent 32.0, Red Cell Distribution Width 15.3 H, Calcium Level 9.1 Microbiology Microbiology 05/31/19 Blood Culture, Received Pending 05/30/19 Blood Culture, Received Pending 05/25/19 Blood Culture - Final, Complete NO GROWTH AFTER 5 DAYS 05/25/19 Blood Culture - Final, Complete NO GROWTH AFTER 5 DAYS 05/26/19 MRSA Screen - Final, Complete 05/25/19 Urine Culture - Final, Complete NEIDA DEAL PA-C May 31, 2019 11:16 FLORIAN HUANG DO May 31, 2019 23:53
--- NOTE | 2019-05-31 15:27 | IPN ---
DATE: 05/31/2019 SUBJECTIVE The patient was seen and examined at the bedside today morning. She is afebrile, hemodynamically stable. She was sitting in the sofa. She denies any active complaints. She has almost 1800 mL of urine output yesterday. There is no significant improvement in the renal function. Creatinine is fluctuating at 4.2. Her last dialysis was 2 days ago. OBJECTIVE Vital signs: Temperature is 98.4 degrees Fahrenheit. Blood pressure 143/69, pulse is 80, respiratory rate of 16, saturating 95% on room air. Intake and output: Urine output recorded as 1.8 liters yesterday. No urine output recorded so far. She has had three voids so far. PHYSICAL EXAMINATION: General: The patient is awake, alert, oriented times threee, morbidly obese, sitting up in the sofa. No apparent distress. Head and neck exam: Extraocular muscles intact. Pupils equally round and reactive to light. Mucous membranes are moist. Right IJ tunneled hemodialysis catheter was noted. Cardiovascular: S1, S2, regular rate. 2+ edema of the bilateral lower extremities. Respiratory: Chest is clear to auscultation bilaterally. Bilateral equal air entry. No rales or rhonchi. Abdomen: Soft, obese, positive bowel sounds. Nontender. No organomegaly. Musculoskeletal: No clubbing or cyanosis. Pulses are 2+. FRONT END ALIGNMENT SPECIALIST: No focal deficit. Power is positive 5/5 in all extremities. LAB REVIEW: CBC showed WBC 19.6, hemoglobin 11.6, platelets are 230. BMP showed sodium 139, potassium 3.8, chloride 105, bicarb 24, BUN 57, creatinine is 4.2, glucose is 99. CURRENT INPATIENT MEDICATIONS The patient's medications were all reviewed by myself. There is no change in the medications today as compared with yesterday. ASSESSMENT/PLAN 1. Acute renal failure. The patient is nonoliguric, however, there is no improvement in the renal function; creatinine is still above 4. She will be dialyzed according to her schedule today. I will try to remove about 1.5 liters of fluid as tolerated by blood pressure. 2. Hypertension. Continue current dose of amlodipine. Blood pressures are optimal. 3. Bilateral lower extremity edema. The patient will get about 1.5 to 2 liters of fluid removed during dialysis today. 4. Proteinuria. All of the serology is still pending. No urgent need of renal biopsy at this time.
[2019-05-31] MEDS ORDERED: MORPHINE 4 MG/ML 1ML VIAL/SYRINGE (J2270) IV PRN (18:45)
[2019-05-31] MEDS ORDERED: VANCOMYCIN HCL 1,000 MG, VIAL MATE ADAPTER 1 EACH in D5W 250 ML IV ONE ×3 (20:30→22:00)
--- NOTE | 2019-05-31 20:43 | PHACANCOPD ---
PHARMACY VANCOMYCIN DOSING Pt Demographics Demographics Patient Age:58 , Weight:179.400 , Gender: female Adjusted Body Weight Date: 05/31/19, Adjusted Body Weight: [105.96] Kg Events Past 24 Hours Events Past 24 Hours: NO: Dialysis, Diuretic Therapy, Change in CrCl, Fever, Elevation in WBC, Pending Diagnostics, Pending Procedures, Other Vancomycin Vancomycin indication: CELLULITIS AND ABSCESS Vancomycin Target Ranges: 10-20 mcg/ml Vancomycin Load Y/N: Yes Load Dose Date Time Vancomycin Load Dose: 2G Date: 05/31/19 Time: 21:00 Vancomycin Dose Date: 05/31/19. Current Vancomycin Dose: Intermittent Dosing?: Yes Labs Labs Item Value Date Time White Blood Count 21.3 10^3/uL H 05/30/19 0611 White Blood Count 20.6 10^3/uL H 05/30/19 1351 White Blood Count 19.6 10^3/uL H 05/31/19 0543 Creatinine 4.23 MG/DL H 05/30/19 0611 Creatinine 5.55 MG/DL H 05/29/19 0627 Creatinine 4.21 MG/DL H 05/31/19 0543 Micro Microbiology 05/31/19 Blood Culture, Received Pending 05/30/19 Blood Culture - Preliminary, Resulted No growth after 24 hours . All specim... 05/25/19 Blood Culture - Final, Complete NO GROWTH AFTER 5 DAYS 05/25/19 Blood Culture - Final, Complete NO GROWTH AFTER 5 DAYS 05/26/19 MRSA Screen - Final, Complete 05/25/19 Urine Culture - Final, Complete 05/31/19 Gram Stain, Received Pending 05/31/19 Wound Culture, Received Pending Creatinine Clearance Date:05/31/19. Creatinine Clearance: [23ML/MIN CALCULATED]. Pending Labs VANCOMYCIN LEVEL 06/01/19 AM Assessment and Plan Maintaining Current Dose?: Yes Reason for dose change: No Dose Change Pharmacist Note Pharmacist Note Date: 05/31/19. Pharmacist note: Pt is a 58 year old female being treated for cellulitis and abscess goal trough 10-20mcg/ml. The pt is currently being dialyzed for MARSHALL. The patient will receive a 2g loading dose starting 08/31/19 @21:00. The pt will then be intermittently dosed. A vancomycin level will be drawn in the AM 06/01/19. We will continue to monitor and adjust the dose as needed. [facility] May 31, 2019 20:43
[2019-05-31] MEDS ORDERED: VANCOMYCIN INTERMITTENT/PULSE DOSING BY CLINICAL PHARMACIST PER DOSING PROTOCOL XX SCH (20:45)
--- NOTE | 2019-05-31 20:51 | REPVR ---
EXAM: US Left Non-Vascular Joint or Other Extremity Structure, Limited Lower Extremity EXAM DATE/TIME: 05/31/2019 8:13 PM CLINICAL HISTORY: 58 years old, female; Pain; Thigh; Patient HX: Patient states reoccurring boil on left portion of labia; Additional info: Groin abscess eval for fistula simple vs complicated TECHNIQUE: Imaging protocol: Left US Non-Vascular Joint or Other Extremity Structure. Limited exam of the left labia. COMPARISON: No relevant prior studies available. FINDINGS: Soft tissues: Sonographic interrogation of the left labia demonstrates a fluid collection consistent with abscess measuring 3.5 x 1.6 x 0.7 cm. No discrete fistulous connection to the skin surface is visible. Adjacent to the abscess there is diffuse soft tissue edema. IMPRESSION: 3.5 x 1.6 x 0.7 cm abscess in the left labia. Electronically signed by: Tanna Mohr On 05/31/2019 20:51:07 PM
[2019-05-31] MEDS: traZODone 100 MG TAB PO SCH (21:09)
[2019-05-31] MEDS: PIPERACILLIN/TAZOBACTAM SOD 2.25 GM in D5W MINI-BAG PLUS 50 ML IV SCH (21:09)
[2019-05-31 22:00] VITALS: BP 160/80
[2019-06-01] MEDS: IPRATROPIUM 0.5MG/ALBUTEROL 2.5MG INH SOL UD 3ML (DUONEB)(J7620) NEB SCH ×4 (02:00→20:00)
[2019-06-01 06:00] VITALS: BP 130/82
[2019-06-01 06:44] LABS: HEMOGLOBIN 11.9 g/dl (12.0-15.5); MEAN CORPUSCULAR HEMOGLOBIN 28.7 pg (27.0-33.0); MEAN CORPUSCULAR HGB CONC 32.2 g/dl (32.0-36.5); MEAN CORPUSCULAR VOLUME 89.4 fl (80.0-96.0); PLATELET COUNT, AUTOMATED 224 10^3/uL (150-450); RED BLOOD COUNT 4.14 10^6/uL (4.00-5.40); WHITE BLOOD COUNT 15.5 10^3/uL (4.0-10.0)
[2019-06-01 07:14] LABS: CREATININE FOR GFR 3.13 MG/DL (0.55-1.30); GLOMERULAR FILTRATION RATE 16.1 (>45); POTASSIUM SERUM 3.7 MEQ/L (3.5-5.1)
[2019-06-01] MEDS: FLUoxetine 20 MG CAP PO SCH (08:46)
[2019-06-01] MEDS: amLODIPine 5 MG TAB PO SCH (08:46)
[2019-06-01] MEDS: HEPARIN SOD (PORCINE) 5000 UNITS/ML VIAL SC SCH ×2 (08:46→20:26)
[2019-06-01] MEDS: PIPERACILLIN/TAZOBACTAM SOD 2.25 GM in D5W MINI-BAG PLUS 50 ML IV SCH ×2 (08:46→20:25)
[2019-06-01] MEDS: OMEPRAZOLE 20 MG CAP PO SCH (08:46)
[2019-06-01] MEDS: NYSTATIN 100,000 UNITS/GM TOPICAL PWD 15 GM TOP SCH ×2 (08:47→20:28)
[2019-06-01] MEDS: DIAPER RELIEF PASTE (DESITIN) 60GM TOP SCH ×3 (08:47→20:28)
[2019-06-01] MEDS ORDERED: VANCOMYCIN HCL 500 MG in D5W MINI-BAG PLUS 100 ML IV ONE (10:00)
[2019-06-01] MEDS ORDERED: VANCOMYCIN HCL 750 MG, VIAL MATE ADAPTER 1 EACH in D5W 250 ML IV ONE (11:00)
[2019-06-01 14:00] VITALS: BP 170/87
--- NOTE | 2019-06-01 14:08 | PHACANCOPD ---
PHARMACY VANCOMYCIN DOSING Pt Demographics Demographics Patient Age:58 , Weight:179.400 , Gender: female Adjusted Body Weight Date: 05/31/19, Adjusted Body Weight: [105.96] Kg Events Past 24 Hours Events Past 24 Hours: YES: Change in CrCl; NO: Dialysis, Diuretic Therapy, Fever, Elevation in WBC, Pending Diagnostics, Pending Procedures, Other Vancomycin Vancomycin indication: CELLULITIS AND ABSCESS Vancomycin Target Ranges: 10-20 mcg/ml Vancomycin Load Y/N: Yes Load Dose Date Time Vancomycin Load Dose: 2G Date: 05/31/19 Time: 21:00 Vancomycin Dose Date: 05/31/19. Current Vancomycin Dose: [1250MG X1 DOSE AT 1000] Intermittent Dosing?: Yes Labs Labs Vital Signs Label Value Date Time Patient Temperature 96.3 degrees F 06/01/19 06 Temperature Source Temporal 06/01/19 0600 Item Value Date Time White Blood Count 20.6 10^3/uL H 05/30/19 1351 White Blood Count 19.6 10^3/uL H 05/31/19 0543 White Blood Count 15.5 10^3/uL H 06/01/19 0611 Creatinine 4.23 MG/DL H 05/30/19 0611 Creatinine 4.21 MG/DL H 05/31/19 0543 Creatinine 3.13 MG/DL H 06/01/19 0611 Micro Microbiology 05/31/19 Blood Culture - Preliminary, Resulted No growth after 24 hours . All specim... 05/30/19 Blood Culture - Preliminary, Resulted No growth after 24 hours . All specim... 05/25/19 Blood Culture - Final, Complete NO GROWTH AFTER 5 DAYS 05/25/19 Blood Culture - Final, Complete NO GROWTH AFTER 5 DAYS 05/26/19 MRSA Screen - Final, Complete 05/25/19 Urine Culture - Final, Complete 05/31/19 Gram Stain - Final, Resulted 05/31/19 Wound Culture, Resulted Pending Creatinine Clearance Date:05/31/19. Creatinine Clearance: [23ML/MIN CALCULATED]. Pending Labs VANCOMYCIN LEVEL 06/01/19 AM Assessment and Plan Maintaining Current Dose?: No Reason for dose change: Change in serum Cr Pharmacist Note Pharmacist Note 06/01: Patient's random came back at 16 this morning. She was dialyzed yesterday due to her MARSHALL. Her SCr has improved from 4.21 to 3.13 today. Her WBC is trending down and she is afebrile. She was given another dose of Vancomycin 1250mg at 10am today and a trough will be drawn tomorrow morning at 9am. We will continue to trend her SCR and troughs to dose her Vancomycin. Date: 05/31/19. Pharmacist note: Pt is a 58 year old female being treated for cellulitis and abscess goal trough 10-20mcg/ml. The pt is currently being dialyzed for MARSHALL. The patient will receive a 2g loading dose starting 08/31/19 @21:00. The pt will then be intermittently dosed. A vancomycin level will be drawn in the AM 06/01/19. We will continue to monitor and adjust the dose as needed. [facility] Jun 01, 2019 14:08
[2019-06-01] MEDS: PERCOCET 5MG/325MG TAB PO PRN (20:27)
--- NOTE | 2019-06-01 20:28 | IPN ---
DATE: 06/01/2019 Mrs. Mathews is seen on her bedside this afternoon. She was dialyzed yesterday because of no improvement in kidney function and 2 liters fluid was removed. Prior to that, she was dialyzed on 05/27/2019 and 05/29/2019 with 3-1/2 liters fluid removed with two dialysis treatments. The patient denies any dyspnea or chest pain. She still has leg edema, which has improved. She denies any nausea or vomiting. Nursing staff reports that she has an abscess draining in her labial fold. Patient has no fever or chills. PHYSICAL EXAMINATION: Temperature 97.8 degrees Fahrenheit, heart rate 92 per minute and respiratory rate 20 per minute. Blood pressure 170/87 mmHg and oxygen saturation 97%. Head is atraumatic. Neck is supple and jugular venous distention (JVD) is difficult to be assessed. There is no oral thrush or ulcers. Heart sounds are regular. Lungs with moderate bilateral air entry without any wheezing or audible rales. Abdomen is obese, soft and nontender. Bowel sounds are normal. Extremities have no cyanosis or clubbing. Neurologically, she is awake, alert and oriented times three. Medications are reviewed. Patient remains on Zosyn 2.25 grams every 12 hours. She had a vancomycin dose given today 750 mg. Her other medications are unchanged. Today's labs show WBC count 15.5, hemoglobin 11.9 and hematocrit 37.0. Platelets 224. Sodium 140, potassium 3.7, CO2 26, BUN 38 and creatinine 3.13. Glucose 95 and calcium 9.0. PROBLEMS: 1. Acute on chronic renal failure. The patient has been dialyzed last week. Last dialysis was done yesterday. At this point, her volume status has improved significantly and there is no emergent need for dialysis today. I will reevaluate her for next dialysis on Monday. Her electrolytes are normal and she has no evidence of metabolic acidosis. 2. Anemia. Anemia is mild and stable and does not need any intervention. N 3. Vulvar area abscess. Patient remains on antibiotics and is currently afebrile. 4. Hypervolemia. Volume status has improved significantly with fluid removal. At this point, her oxygen saturation is 97% on room air. We will continue to remove fluid with dialysis as tolerated.
[2019-06-01 22:00] VITALS: BP 139/63
[2019-06-01] MEDS: traZODone 100 MG TAB PO SCH (22:09)
--- NOTE | 2019-06-01 22:39 | IPNPDOC ---
Subjective Date Seen The patient was seen on 06/01/19. Subjective Chief Complaint/HPI Patient reports feeling similar to previous, leukocytosis improving. Patient tolerating vancomycin and Zosyn. Renal function improved. Wound consult pending; nursing discussed and prefer an Optilock in the meantime. Constitutional: Denies: Chills, Fever Skin: Reports: Breakdown Pulmonary: Denies: Dyspnea, Cough Cardiovascular: Reports: Chest Pain Gastrointestinal: Denies: Nausea, Vomiting, Diarrhea, Constipation Psych: Reports: Mood Normal Objective Physical Examination General Exam: Positive: Alert, No Acute Distress (visibly uncomfortable during wound care), Other (morbidly obese) Chest Exam: Positive: Clear to auscultation, Normal air movement Heart Exam: Positive: Rate Normal, Regular Rhythm, Normal S1, Normal S2 Telemetry: Positive: No significant arrhythmia Abdomen Exam: Positive: Normal bowel sounds, Soft Female Exam: Positive: Lesions (L labia cellulitic, discharge externally), Discharge, Odor Extremity Exam: Positive: Edema (trace), Normal pulses Psych Exam: Positive: Mental status NL Assessment /Plan Problems (1) Left genital labial abscess Problem Text: On vancomycin and Zosyn. Draining. Imaging confirms no locu lations, fistulous tracts. Leukocytosis improving. Will apply Optilock until wound care consult. (2) Leukocytosis Status: Acute Problem Text: 06/01 -- Improving, on antibiotics and with drainage of abscess. 05/31 WBC remains elevated down from 20.6 to 19.6, cont to monitor. 05/30 Ddx: infection, leukemia, reactive etiology also causing AKI3 05/29 last dose flucon // 629 vanco and Zosyn 05/30 repeat BCX x 2, check diff/peripheral smear/LDH, 05/27 CT chest/AP NAD 04/2019 BCX2, UCX NG 03/2019 WBC baseline 7.7 c normal diff (3) Acute renal failure Status: Acute Discussed With: Package Dye Stand Loader Problem Specific Plan: Consult Specialist, Monitor Clinically, Repeat Labs Problem Text: 06/01 -- renal function improving 05/31 Dialysis planned for today, nonoliguric 05/30 mgmt per nephrology, slight improvement in GFR sp HD 05/27 -urine for eos working etiology medication induced (on admission on lisin 20, met 500, nap 500 BID, CTD 25, asa 325-although on same regimen 03/2019 cr at baseline 0.9, ROBERT/creatinine 27) 05/26 KENNY/ANCA P 05/26 SPEP s M spike (4) Acidosis, metabolic, with respiratory acidosis Status: Acute Discussed With: Package Dye Stand Loader Problem Specific Plan: Consult Specialist, Monitor Clinically, Repeat Labs Problem Text: 05/27/19: ABG has stabilized as of this morning. Transition to med/surg with telemetry due to electrolyte disturbance. This is a combination of stress of the respiratory compromise and the renal failure. Treatment will be geared at fixing these component parts. She currently requires ICU care for this problem. (5) DM (diabetes mellitus), type 2 Status: Chronic Response to Treatment: Stable Problem Specific Plan: Repeat Tests Problem Text: diet controlled (6) Hypertension Problem Text: BP is stable and if anything low. Her antihypertensives (chlorthalidone and lisinopril) are on hold due to MARSHALL (7) Chronic pain Status: Chronic Problem Specific Plan: Monitor Clinically Problem Text: 05/31 no complaints this morning. 05/30 She is too ill to complain of this right now. However, she must be carefully counseled to avoid NSAIDs once she is able to understand this better. I believe that accidental NSAID overdose plays a significant role in this admission. (8) Depression Status: Chronic Problem Text: Stable on HD fluox 20 Plan/VTE VTE Prophylaxis Ordered?: Yes (SQ heparin) Plan Therapy: PT, OT VS, I&O, 24H, Fishbone Vital Signs/I&O Vital Signs Date Time Temp Pulse Resp B/P (MAP) Pulse Ox O2 Delivery O2 Flow Rate FiO2 06/01/19 20:27 18 06/01/19 14:00 97.8 93 170/87 (114) 97 05/26/19 23:30 30 05/26/19 17:30 2.0 I&O- Last 24 Hours up to 6 AM 06/01/19 06:00 Intake Total 1390 ml Output Total 2000 ml Balance -610 ml Laboratory Data 24H LABS Laboratory Tests 2 06/01/19 06:11: Nucleated Red Blood Cells % (auto) 0.0, Anion Gap 9, Glomerular Filtration Rate 16.1L, Blood Urea Nitrogen 38H, Creatinine 3.13H, Sodium Level 140, Potassium Level 3.7, Chloride Level 105, Carbon Dioxide Level 26, Calcium Level 9.0, Random Vancomycin Level 16.0 06/01/19 11:53: Bedside Glucose (Misc Panel) 79L 06/01/19 17:17: Bedside Glucose (Misc Panel) 89 06/01/19 20:35: Bedside Glucose (Misc Panel) 111 CBC/BMP Laboratory Tests 06/01/19 06:11 Red Blood Count 4.14, Mean Corpuscular Volume 89.4, Mean Corpuscular Hemoglobin 28.7, Mean Corpuscular Hemoglobin Concent 32.2, Red Cell Distribution Width 14.8 H, Calcium Level 9.0 Microbiology Microbiology 05/31/19 Blood Culture - Preliminary, Resulted No growth after 24 hours . All specim... 05/30/19 Blood Culture - Preliminary, Resulted No Growth after 48 hours. All Specime... 05/25/19 Blood Culture - Final, Complete NO GROWTH AFTER 5 DAYS 05/25/19 Blood Culture - Final, Complete NO GROWTH AFTER 5 DAYS 05/26/19 MRSA Screen - Final, Complete 05/25/19 Urine Culture - Final, Complete 05/31/19 Gram Stain - Final, Resulted 05/31/19 Wound Culture, Resulted Pending FLORIAN HUANG DO Jun 01, 2019 22:39
[2019-06-02] MEDS: IPRATROPIUM 0.5MG/ALBUTEROL 2.5MG INH SOL UD 3ML (DUONEB)(J7620) NEB SCH ×4 (01:04→20:00)
[2019-06-02 06:00] VITALS: BP 142/62
[2019-06-02] MEDS: DIAPER RELIEF PASTE (DESITIN) 60GM TOP SCH ×3 (09:00→21:55)
[2019-06-02] MEDS: NYSTATIN 100,000 UNITS/GM TOPICAL PWD 15 GM TOP SCH ×2 (09:00→21:55)
[2019-06-02] MEDS: HEPARIN SOD (PORCINE) 5000 UNITS/ML VIAL SC SCH ×2 (09:21→21:54)
[2019-06-02] MEDS: PIPERACILLIN/TAZOBACTAM SOD 2.25 GM in D5W MINI-BAG PLUS 50 ML IV SCH (09:21)
[2019-06-02] MEDS: OMEPRAZOLE 20 MG CAP PO SCH (09:22)
[2019-06-02] MEDS: amLODIPine 5 MG TAB PO SCH (09:22)
[2019-06-02] MEDS: FLUoxetine 20 MG CAP PO SCH (09:22)
[2019-06-02] MEDS: PERCOCET 5MG/325MG TAB PO PRN ×3 (09:24→22:05)
[2019-06-02 09:34] LABS: HEMOGLOBIN 11.7 g/dl (12.0-15.5); MEAN CORPUSCULAR HGB CONC 32.5 g/dl (32.0-36.5); MEAN CORPUSCULAR VOLUME 89.3 fl (80.0-96.0); PLATELET COUNT, AUTOMATED 219 10^3/uL (150-450); RED BLOOD COUNT 4.03 10^6/uL (4.00-5.40); WHITE BLOOD COUNT 12.3 10^3/uL (4.0-10.0)
[2019-06-02 10:01] LABS: CALCIUM LEVEL 8.8 MG/DL (8.8-10.2); CREATININE FOR GFR 2.85 MG/DL (0.55-1.30); POTASSIUM SERUM 3.9 MEQ/L (3.5-5.1); VANCOMYCIN LEVEL TROUGH 15.7 UG/ML (10.0-20.0)
--- NOTE | 2019-06-02 12:15 | PHACANCOPD ---
PHARMACY VANCOMYCIN DOSING Pt Demographics Demographics Patient Age:58 , Weight:179.400 , Gender: female Adjusted Body Weight Date: 05/31/19, Adjusted Body Weight: [105.96] Kg Events Past 24 Hours Events Past 24 Hours: NO: Dialysis, Diuretic Therapy, Change in CrCl, Fever, Elevation in WBC, Pending Diagnostics, Pending Procedures, Other Vancomycin Vancomycin indication: CELLULITIS AND ABSCESS Vancomycin Target Ranges: 10-20 mcg/ml Vancomycin Load Y/N: Yes Load Dose Date Time Vancomycin Load Dose: 2G Date: 05/31/19 Time: 21:00 Vancomycin Dose Date: 06/02/19. Current Vancomycin Dose: [1.25G IV Q24H] Date: 05/31/19. Current Vancomycin Dose: [1250MG X1 DOSE AT 1000] Intermittent Dosing?: No Labs Labs Item Value Date Time Blood Urea Nitrogen 73 MG/DL H 05/29/19 0627 White Blood Count 20.6 10^3/uL H 05/30/19 1351 White Blood Count 19.6 10^3/uL H 05/31/19 0543 White Blood Count 15.5 10^3/uL H 06/01/19 0611 White Blood Count 12.3 10^3/uL H 06/02/19 0923 Creatinine 4.21 MG/DL H 05/31/19 0543 Creatinine 3.13 MG/DL H 06/01/19 0611 Creatinine 2.85 MG/DL H 06/02/19 0923 Random Vancomycin Level 16.0 UG/ML 06/01/19 0611 Vancomycin Level Trough 15.7 UG/ML 06/02/19 0923 Micro Microbiology 05/31/19 Blood Culture - Preliminary, Resulted No Growth after 48 hours. All Specime... 05/30/19 Blood Culture - Preliminary, Resulted No Growth after 48 hours. All Specime... 05/25/19 Blood Culture - Final, Complete NO GROWTH AFTER 5 DAYS 05/25/19 Blood Culture - Final, Complete NO GROWTH AFTER 5 DAYS 05/26/19 MRSA Screen - Final, Complete 05/25/19 Urine Culture - Final, Complete 05/31/19 Gram Stain - Final, Complete 05/31/19 Wound Culture - Final, Complete Enterobacter Cloacae Complex Creatinine Clearance Date:05/31/19. Creatinine Clearance: [23ML/MIN CALCULATED]. Pending Labs VANCOMYCIN LEVEL 06/03/19 12:00 Assessment and Plan Maintaining Current Dose?: No Reason for dose change: Change in serum Cr Pharmacist Note Pharmacist Note Date: 06/02/19. Pharmacist note: Pts vancomycin level came back today @09:23 @15.7mcg/ml. The pts serum creatinine has improved to 2.85mg/dl. We will start 1.25g vancomycin IV every 24h starting 06/02 @13:00. A trough is scheduled for 12:00 06/03. We will continue to monitor and adjust the dose as needed. 06/01: Patient's random came back at 16 this morning. She was dialyzed yesterday due to her MARSHALL. Her SCr has improved from 4.21 to 3.13 today. Her WBC is trending down and she is afebrile. She was given another dose of Vancomycin 1250mg at 10am today and a trough will be drawn tomorrow morning at 9am. We will continue to trend her SCR and troughs to dose her Vancomycin. Date: 05/31/19. Pharmacist note: Pt is a 58 year old female being treated for cellulitis and abscess goal trough 10-20mcg/ml. The pt is currently being dialyzed for MARSHALL. The patient will receive a 2g loading dose starting 08/31/19 @21:00. The pt will then be intermittently dosed. A vancomycin level will be d rawn in the AM 06/01/19. We will continue to monitor and adjust the dose as needed. [facility] Jun 02, 2019 12:15
[2019-06-02] MEDS ORDERED: VANCOMYCIN HCL 750 MG, VIAL MATE ADAPTER 1 EACH in D5W 250 ML IV SCH (13:00)
[2019-06-02 14:00] VITALS: BP 128/60
[2019-06-02] MEDS ORDERED: LevoFLOXacin IV 500 MG in APPROPRIATE DILUENT 1 EA IV ONE (14:00)
[2019-06-02] MEDS ORDERED: VANCOMYCIN HCL 500 MG in D5W MINI-BAG PLUS 100 ML IV SCH (14:00)
--- NOTE | 2019-06-02 15:18 | IPN ---
DATE: 06/02/2019 Mrs. Mathews is seen this morning on her bedside. She is laying in the recliner chair. She denies any dyspnea, chest pain, nausea or vomiting. She has been afebrile. PHYSICAL EXAMINATION: Temperature 96 degrees Fahrenheit, heart rate 82 per minute and respiratory rate 20 per minute. Blood pressure 142/62 mmHg and oxygen saturation 96% on room air. Intake and output is not being recorded. Her head is atraumatic. Neck is supple and without jugular venous distention (JVD) or thyroid enlargement. Right internal jugular vein Perma-Cath is present without any signs of infection or bleeding at the catheter exit site. Heart sounds are regular. Lungs with moderate bilateral air entry without any wheezing. Abdomen obese, soft and nontender. Bowel sounds are normal. Extremities have no cyanosis or clubbing. Peripheral edema has improved significantly and she does have about 1+ lower extremity edema. Neurologically, she is awake, alert and oriented times three. Today's labs show WBC count 12.3, hemoglobin 11.7 and hematocrit 36.0. Platelets 219. Sodium 141, potassium 3.9, CO2 25, BUN 37 and creatinine 2.85. It is important to note that yesterday her creatinine was 3.13. Her last dialysis was performed on 05/31/2019, when her creatinine was 4.21. PROBLEMS: 1. Acute renal failure superimposed on chronic kidney disease. Kidney function has started to improve. I do not feel that further dialysis will be needed. We will check her renal function again tomorrow morning. A final decision will be made tomorrow. 2. Hypervolemia and peripheral edema. Volume status has improved significantly. We will continue to watch her closely. At present she is not was on any diuretic. 3. Vulvar area abscess. The patient remains on antibiotics and her leukocytosis is improving. 4. Hypertension. Blood pressure is very well controlled at present.
--- NOTE | 2019-06-02 17:27 | IPNPDOC ---
Subjective Date Seen The patient was seen on 06/02/19. Subjective Chief Complaint/HPI Nursing staff reports that Optilock is doing fairly well to catch and absorb drainage from abscess. The abscess does appear to be draining well. Micro returned and antibiotics were adjusted. Her leukocytosis and renal function both are improved today. Constitutional: Denies: Chills, Fever, Malaise Skin: Reports: Lesions, Itching, Breakdown Pulmonary: Denies: Dyspnea, Cough Cardiovascular: Denies: Chest Pain Gastrointestinal: Denies: Nausea, Vomiting, Diarrhea, Constipation Psych: Reports: Mood Normal Objective Physical Examination General Exam: Positive: Alert, No Acute Distress, Other (morbidly obese) Chest Exam: Positive: Clear to auscultation, Normal air movement Heart Exam: Positive: Rate Normal, Regular Rhythm, Normal S1, Normal S2 Telemetry: Positive: No significant arrhythmia Abdomen Exam: Positive: Normal bowel sounds, Soft Female Exam: Positive: Lesions (L labia cellulitic, discharge externally), Discharge, Odor Extremity Exam: Positive: Edema (1+), Normal pulses Psych Exam: Positive: Mental status NL Assessment /Plan Problems (1) Left genital labial abscess Problem Text: 06/02 -- Culture results returned, and patient switched to Levaquin per culture and KETAN. Levaquin is dosed per renal function, and if her renal f unction continues to improve, this will require attention to ensure that dosing remains therapeutic. On vancomycin and Zosyn. Draining. Imaging confirms no loculations, fistulous tracts. Leukocytosis improving. Will apply Optilock until wound care consult. (2) Leukocytosis Status: Acute Problem Text: 06/01 -- Improving, on antibiotics and with drainage of abscess. 05/31 WBC remains elevated down from 20.6 to 19.6, cont to monitor. 05/30 Ddx: infection, leukemia, reactive etiology also causing AKI3 05/29 last dose flucon // 629 vanco and Zosyn 05/30 repeat BCX x 2, check diff/peripheral smear/LDH, 05/27 CT chest/AP NAD 04/2019 BCX2, UCX NG 03/2019 WBC baseline 7.7 c normal diff (3) Acute renal failure Status: Acute Discussed With: Chief Mechanical Engineer Problem Specific Plan: Consult Specialist, Monitor Clinically, Repeat Labs Problem Text: 06/02 -- renal function improving; nephrology is consulted and believes that she may not require future dialysis. 06/01 -- renal function improving 05/31 Dialysis planned for today, nonoliguric 05/30 mgmt per nephrology, slight improvement in GFR sp HD 05/27 -urine for eos working etiology medication induced (on admission on lisin 20, met 500, nap 500 BID, CTD 25, asa 325-although on same regimen 03/2019 cr at baseline 0.9, ROBERT/creatinine 27) 05/26 KENNY/ANCA P 05/26 SPEP s M spike (4) Acidosis, metabolic, with respiratory acidosis Status: Acute Discussed With: Chief Mechanical Engineer Problem Specific Plan: Consult Specialist, Monitor Clinically, Repeat Labs Problem Text: 05/27/19: ABG has stabilized as of this morning. Transition to med/surg with telemetry due to electrolyte disturbance. This is a combination of stress of the respiratory compromise and the renal failure. Treatment will be geared at fixing these component parts. She currently requires ICU care for this problem. (5) DM (diabetes mellitus), type 2 Status: Chronic Response to Treatment: Stable Problem Specific Plan: Repeat Tests Problem Text: diet controlled (6) Hypertension Problem Text: BP is stable and if anything low. Her antihypertensives (chlorthalidone and lisinopril) are on hold due to MARSHALL (7) Chronic pain Status: Chronic Problem Specific Plan: Monitor Clinically Problem Text: 05/31 no complaints this morning. 05/30 She is too ill to complain of this right now. However, she must be carefully counseled to avoid NSAIDs once she is able to understand this better. I believe that accidental NSAID overdose plays a significant role in this admission. (8) Depression Status: Chronic Problem Text: Stable on HD fluox 20 Plan/VTE VTE Prophylaxis Ordered?: Yes (SQ heparin) Plan Therapy: PT, OT VS, I&O, 24H, Fishbone Vital Signs/I&O Vital Signs Date Time Temp Pulse Resp B/P (MAP) Pulse Ox O2 Delivery O2 Flow Rate FiO2 06/02/19 16:04 18 06/02/19 14:00 97.0 88 128/60 (82) 95 I&O- Last 24 Hours up to 6 AM 06/02/19 05:59 Intake Total 990 ml Output Total 0 ml Balance 990 ml Laboratory Data 24H LABS Laboratory Tests 2 06/01/19 20:35: Bedside Glucose (Misc Panel) 111 06/02/19 08:06: Bedside Glucose (Misc Panel) 85 06/02/19 09:23: Nucleated Red Blood Cells % (auto) 0.0, Anion Gap 8, Glomerular Filtration Rate 18.0L, Blood Urea Nitrogen 37H, Creatinine 2.85H, Sodium Level 141, Potassium Level 3.9, Chloride Level 108H, Carbon Dioxide Level 25, Calcium Level 8.8, Vancomycin Level Trough 15.7 06/02/19 11:25: Bedside Glucose (Misc Panel) 136H 06/02/19 16:37: Bedside Glucose (Misc Panel) 92 CBC/BMP Laboratory Tests 06/02/19 09:23 Red Blood Count 4.03, Mean Corpuscular Volume 89.3, Mean Corpuscular Hemoglobin 29.0, Mean Corpuscular Hemoglobin Concent 32.5, Red Cell Distribution Width 14.6 H, Calcium Level 8.8 Microbiology Microbiology 05/31/19 Blood Culture - Preliminary, Resulted No Growth after 48 hours. All Specime... 05/30/19 Blood Culture - Preliminary, Resulted No Growth after 72 hours. All specime... 05/25/19 Blood Culture - Final, Complete NO GROWTH AFTER 5 DAYS 05/25/19 Blood Culture - Final, Complete NO GROWTH AFTER 5 DAYS 05/26/19 MRSA Screen - Final, Complete 05/25/19 Urine Culture - Final, Complete 05/31/19 Gram Stain - Final, Complete 05/31/19 Wound Culture - Final, Complete Enterobacter Cloacae Complex FLORIAN HUANG DO Jun 02, 2019 17:27
[2019-06-02] MEDS: traZODone 25MG PER 1/2 TABLET PO SCH (21:55)
[2019-06-02 22:00] VITALS: BP 135/68
[2019-06-03] MEDS: IPRATROPIUM 0.5MG/ALBUTEROL 2.5MG INH SOL UD 3ML (DUONEB)(J7620) NEB SCH ×5 (02:00→21:01)
[2019-06-03 06:00] VITALS: BP 135/80
[2019-06-03 06:05] LABS: HEMATOCRIT 35.9 % (36.0-47.0); HEMOGLOBIN 11.3 g/dl (12.0-15.5); MEAN CORPUSCULAR HEMOGLOBIN 28.3 pg (27.0-33.0); MEAN CORPUSCULAR HGB CONC 31.5 g/dl (32.0-36.5); PLATELET COUNT, AUTOMATED 269 10^3/uL (150-450); RED BLOOD COUNT 3.99 10^6/uL (4.00-5.40); WHITE BLOOD COUNT 10.2 10^3/uL (4.0-10.0)
[2019-06-03 06:28] LABS: CALCIUM LEVEL 8.3 MG/DL (8.8-10.2); CREATININE FOR GFR 2.53 MG/DL (0.55-1.30); GLOMERULAR FILTRATION RATE 20.6 (>45); POTASSIUM SERUM 3.9 MEQ/L (3.5-5.1)
[2019-06-03] MEDS: FLUoxetine 20 MG CAP PO SCH (08:28)
[2019-06-03] MEDS: HEPARIN SOD (PORCINE) 5000 UNITS/ML VIAL SC SCH ×2 (08:29→20:29)
[2019-06-03] MEDS: OMEPRAZOLE 20 MG CAP PO SCH (08:29)
[2019-06-03] MEDS: amLODIPine 5 MG TAB PO SCH (08:29)
[2019-06-03] MEDS: DIAPER RELIEF PASTE (DESITIN) 60GM TOP SCH ×3 (08:30→20:30)
[2019-06-03] MEDS: NYSTATIN 100,000 UNITS/GM TOPICAL PWD 15 GM TOP SCH ×2 (08:30→20:30)
--- NOTE | 2019-06-03 10:26 | IPN ---
DATE: 06/03/2019 Mrs. Mathews is seen this morning on her bedside. She is lying in the recliner chair at the time of my visit. She denies any dyspnea, chest pain, nausea or vomiting. She reports good urine output, though her output is not being recorded. PHYSICAL EXAMINATION: Temperature 96.5 degrees Fahrenheit, heart rate 85 per minute and respiratory rate 18 per minute. Blood pressure 135/80 mmHg and oxygen saturation 96% on room air. Head is atraumatic. Neck is supple and without jugular venous distention (JVD) or thyroid enlargement. Internal jugular vein PermaCath is present on the right upper chest. Heart sounds are regular and lungs clear to auscultation. Abdomen soft, obese and nontender and bowel sounds are normal. Extremities have no cyanosis or clubbing. Lower extremity edema is only a trace. Today's labs show WBC count 10.2, hemoglobin 11.3 and hematocrit 35.9. Platelets 269. Sodium 141, potassium 3.9, CO2 24, BUN 35 and creatinine 2.53. PROBLEMS: 1. Acute renal failure probably superimposed on chronic kidney disease. The patient has gradual improvement in her kidney function. Her creatinine was 3.13 on June 01 which came down to 2.85 yesterday and further down to 2.53 today. She was dialyzed on May 31 and does not need dialysis anymore. Her PermaCath will be removed today. 2. Anemia. Her anemia is stable at this point and likely to improve as her kidney function is improving. 3. Sepsis with abscess in her vulvar area. The patient has been on antibiotics and currently afebrile. She has been now switched to levofloxacin and vancomycin has been stopped along with Zosyn. Her kidney function is improving and levofloxacin dose can be adjusted as her kidney function improves. 4. Hypervolemia and peripheral edema. Her volume status has improved significantly and now she has good urine output. She is currently not on any diuretic and we will continue to monitor. At some point we will consider to resume her chronic diuretic therapy.
[2019-06-03] MEDS: PERCOCET 5MG/325MG TAB PO PRN ×2 (10:39→16:55)
--- NOTE | 2019-06-03 10:53 | RO ---
DATE OF PROCEDURE: 06/03/2019 PREPROCEDURE DIAGNOSIS: Acute renal failure and recovery of acute renal failure. POSTPROCEDURE DIAGNOSIS: Acute renal failure and recovery of acute renal failure. PROCEDURE: Removal of right upper chest Perma-Cath. SURGEON: Dr. Sami Brown. RN TELEMETRY: Dr. Kamran Sandoval ANESTHESIA: None. INDICATIONS FOR PROCEDURE: Recovery of acute renal failure and no need for dialysis. DESCRIPTION: Informed consent obtained from the patient. She had acute renal failure and required temporary dialysis last week. Now her kidney function is improving over last 3 days and she does not need dialysis anymore. Perma-Cath is being removed for this reason. Dressing was removed and sutures were removed with a suture removal. Digital pressure was held at the catheter exit site and catheter pulled out without any difficulty. The whole catheter came out intact. The patient tolerated the procedure very well and there were no complications. Pressure dressing applied after manual digital pressure at the exit site for a brief period of time. There was no bleeding and the patient tolerated the procedure well. ОЛЬГА
--- NOTE | 2019-06-03 11:11 | IPNPDOC ---
Subjective Date Seen The patient was seen on 06/03/19. Subjective Chief Complaint/HPI Pt this morning states that she is doing alright. She has some drainage from her labial abscess but isn't really sure how much. Nursing hasn't looked at the area yet today. General: Denies: Fatigue Constitutional: Denies: Chills, Fever Pulmonary: Denies: Dyspnea, Cough Cardiovascular: Denies: Chest Pain, Palpitations Gastrointestinal: Denies: Nausea, Vomiting, Abdominal Pain, Diarrhea Neurological: Denies: Weakness Psych: Reports: Mood Normal Objective Physical Examination General Exam: Positive: Alert, No Acute Distress, Other (morbidly obese) Chest Exam: Positive: Clear to auscultation, Normal air movement Heart Exam: Positive: Rate Normal, Regular Rhythm, Normal S1, Normal S2 Telemetry: Positive: No significant arrhythmia Abdomen Exam: Positive: Normal bowel sounds, Soft, Other (obese); Negative: Tenderness Female Exam: Positive: Lesions (significant supra pubic swelling extends to the L labia with area of induration that is painful, appears to be an open area medial labia with minimal drainage visualized when pressure applied to area of induration, there is really very minimal drainage located the towel she was seated on), Discharge, Odor Extremity Exam: Positive: Edema (1+), Normal pulses Psych Exam: Positive: Mental status NL Assessment /Plan Problems (1) Left genital labial abscess Problem Text: 06/03 I don't think this is really adequately draining, in part likely d/t her body habitus, she will need to go to IR today to have this addressed further, the order has been placed and the pt and nursing are aware. I will consult [facility] to have them come take a look at her as well. She should cont with Levaquin, renally dosed. 06/02 -- Culture results returned, and patient switched to Levaquin per culture and KETAN. Levaquin is dosed per renal function, and if her renal function continues to improve, this will require attention to ensure that dosing remains therapeutic. On vancomycin and Zosyn. Draining. Imaging confirms no loculations, fistulous tracts. Leukocytosis improving. Will apply Optilock until wound care consult. (2) Leukocytosis Status: Acute Problem Text: 06/01 -- Improving, on antibiotics and with drainage of abscess. 05/31 WBC remains elevated down from 20.6 to 19.6, cont to monitor. 05/30 Ddx: infection, leukemia, reactive etiology also causing AKI3 05/29 last dose flucon // 629 vanco and Zosyn 05/30 repeat BCX x 2, check diff/peripheral smear/LDH, 05/27 CT chest/AP NAD 04/2019 BCX2, UCX NG 03/2019 WBC baseline 7.7 c normal diff (3) Acute renal failure Status: Acute Discussed With: Ladle Operator Problem Specific Plan: Consult Specialist, Monitor Clinically, Repeat Labs Problem Text: 06/02 -- renal function improving; nephrology is consulted and believes that she may not require future dialysis. 06/01 -- renal function improving 05/31 Dialysis planned for today, nonoliguric 05/30 mgmt per nephrology, slight improvement in GFR sp HD 05/27 -urine for eos working etiology medication induced (on admission on lisin 20, met 500, nap 500 BID, CTD 25, asa 325-although on same regimen 03/2019 cr at baseline 0.9, ROBERT/creatinine 27) 05/26 KENNY/ANCA P 05/26 SPEP s M spike (4) Acidosis, metabolic, with respiratory acidosis Status: Acute Discussed With: Ladle Operator Problem Specific Plan: Consult Specialist, Monitor Clinically, Repeat Labs Problem Text: 05/27/19: ABG has stabilized as of this morning. Transition to med/surg with telemetry due to electrolyte disturbance. This is a combination of stress of the respiratory compromise and the renal failure. Treatment will be geared at fixing these component parts. She currently requires ICU care for this problem. (5) DM (diabetes mellitus), type 2 Status: Chronic Response to Treatment: Stable Problem Specific Plan: Repeat Tests Problem Text: diet controlled (6) Hypertension Problem Text: BP is stable and if anything low. Her antihypertensives (chlorthalidone and lisinopril) are on hold due to MARSHALL (7) Chronic pain Status: Chronic Problem Specific Plan: Monitor Clinically Problem Text: 05/31 no complaints this morning. 05/30 She is too ill to complain of this right now. However, she must be carefully counseled to avoid NSAIDs once she is able to understand this better. I believe that accidental NSAID overdose plays a significant role in this admission. (8) Depression Status: Chronic Problem Text: Stable on HD fluox 20 Plan/VTE VTE Prophylaxis Ordered?: Yes (SQ heparin) Plan Therapy: PT, OT VS, I&O, 24H, Fishbone Vital Signs/I&O Vital Signs Date Time Temp Pulse Resp B/P (MAP) Pulse Ox O2 Delivery O2 Flow Rate FiO2 06/03/19 10:39 18 06/03/19 08:29 85 135/80 06/03/19 06:00 96.5 96 I&O- Last 24 Hours up to 6 AM 06/03/19 06:00 Intake Total 1230 ml Output Total 0 ml Balance 1230 ml Laboratory Data 24H LABS Laboratory Tests 2 06/02/19 11:25: Bedside Glucose (Misc Panel) 136H 06/02/19 16:37: Bedside Glucose (Misc Panel) 92 06/02/19 20:12: Bedside Glucose (Misc Panel) 135H 06/03/19 05:37: Nucleated Red Blood Cells % (auto) 0.0, Anion Gap 9, Glomerular Filtration Rate 20.6L, Blood Urea Nitrogen 35H, Creatinine 2.53H, Sodium Level 141, Potassium Level 3.9, Chloride Level 108H, Carbon Dioxide Level 24, Calcium Level 8.3L CBC/BMP Laboratory Tests 06/03/19 05:37 Red Blood Count 3.99 L, Mean Corpuscular Volume 90.0, Mean Corpuscular Hemoglobin 28.3, Mean Corpuscular Hemoglobin Concent 31.5 L, Red Cell Distribution Width 14.6 H, Calcium Level 8.3 L Microbiology Microbiology 05/31/19 Blood Culture - Preliminary, Resulted No Growth after 72 hours. All specime... 05/30/19 Blood Culture - Preliminary, Resulted No Growth after 72 hours. All specime... 05/25/19 Blood Culture - Final, Complete NO GROWTH AFTER 5 DAYS 05/25/19 Blood Culture - Final, Complete NO GROWTH AFTER 5 DAYS 05/26/19 MRSA Screen - Final, Complete 05/25/19 Urine Culture - Final, Complete 05/31/19 Gram Stain - Final, Complete 05/31/19 Wound Culture - Final, Complete Enterobacter Cloacae Complex NEIDA DEAL PA-C Jun 03, 2019 11:11
[2019-06-03 14:00] VITALS: BP 112/59
--- NOTE | 2019-06-03 16:41 | CR.PDOC ---
General Date of Consultation: Jun 03, 2019 Attending Physician: FANG CHOI DO Consultation REASON FOR CONSULTATION/CHIEF COMPLAINT: Labial Abscess HISTORY OF PRESENT ILLNESS: 58 yo G0 currently admitted for management of hyperkalemia and acute renal failure, with history of DMII, chronic pain, depression, HTN, and obesity, with new finding of labial abscess. She was admitted 05/26 and noted labial pain beginning a few days after. She states it became more painful and then began draining about a day after the pain started. A pelvic US on 05/31 showed a fluid collection c/w abscess without fistulous tract and significant soft tissue edema. Now the drainage has increased and the pain has gotten slightly better. She is sitting on pads and having purulent/bloody discharge. She denies other vaginal bleeding, has been post menopausal for a long time now. Denies any history of HAT LACER problems, however she has had episodes of this in the past, managed at home with Sitz baths. ALLERGIES: Please see below. HOME MEDICATIONS: Please see below. PAST MEDICAL HISTORY: 1. Degenerative joint disease. 2. Tobacco abuse. 3. And asthma 4 gastroesophageal reflux disease 5 osteoarthritis 6 hypertension 7 obstructive sleep apnea 8 morbid obesity 9 bilateral lower extremity venous insufficiency 10 B12 deficiency 12 depression 13 insomnia 13 diabetes mellitus. PAST SURGICAL HISTORY: 1. Left milk duct removal. 2. Adenoidectomy SOCIAL HISTORY: Lives with: Alone but has family nearby, Tobacco use: Active smoker. ETOH: Denies, Illicit drug use: Denies, Tattoos done unprofessionally FAMILY HISTORY: No history of ovarian, uterine, breast cancer REVIEW OF SYSTEMS: Negative other than HPI PHYSICAL EXAMINATION: VITAL SIGNS: Please see below. GENERAL APPEARANCE: In no apparent distress HAT LACER: Mons with significant erythema and induration, non tender to palpation. Left labia majora with no clear areas of fluctuance, open area at bottom on labia draining purulent material. Exam limited due to patient discomfort. Speculum exam deferred. No other areas of drainage ASSESSMENT/PLAN: 58 yo G0 admitted for medical management of acute renal failure, now with labial abscess. At this time there is no change in management of the abscess. The abscess is draining, the patient's pain is improving, as is her leukocytosis. She has been afebrile since admission. The results of the second ultrasound are pending but on physical exam there is no additional area palpated for drainage. The cellulitis is likely related to the abscess and will improve with antibiotics. We will see her tomorrow to assess for continued improvement. Pt d/w Dr. Steph Rhodes, PGY3 I attest to the above information after interviewing and examining the patient alongside Dr. Rhodes. Jessica Choi, DO Vital Signs/I&O Vital Signs Date Time Temp Pulse Resp B/P (MAP) Pulse Ox O2 Delivery O2 Flow Rate FiO2 06/03/19 14:00 96.5 89 20 112/59 (76) 99 I&O- Last 24 Hours up to 6 AM 06/03/19 05:59 Intake Total 1080 ml Output Total 0 ml Balance 1080 ml Laboratory Data Labs 24H Laboratory Tests 2 06/02/19 16:37: Bedside Glucose (Misc Panel) 92 06/02/19 20:12: Bedside Glucose (Misc Panel) 135H 06/03/19 05:37: Nucleated Red Blood Cells % (auto) 0.0, Anion Gap 9, Glomerular Filtration Rate 20.6L, Blood Urea Nitrogen 35H, Creatinine 2.53H, Sodium Level 141, Potassium Level 3.9, Chloride Level 108H, Carbon Dioxide Level 24, Calcium Level 8.3L 06/03/19 12:01: Bedside Glucose (Misc Panel) 69L CBC/BMP Laboratory Tests 06/03/19 05:37 Red Blood Count 3.99 L, Mean Corpuscular Volume 90.0, Mean Corpuscular Hemoglobin 28.3, Mean Corpuscular Hemoglobin Concent 31.5 L, Red Cell Distrib ution Width 14.6 H, Calcium Level 8.3 L Microbiology Microbiology 05/31/19 Blood Culture - Preliminary, Resulted No Growth after 72 hours. All specime... 05/30/19 Blood Culture - Preliminary, Resulted No Growth after 72 hours. All specime... 05/25/19 Blood Culture - Final, Complete NO GROWTH AFTER 5 DAYS 05/25/19 Blood Culture - Final, Complete NO GROWTH AFTER 5 DAYS 05/26/19 MRSA Screen - Final, Complete 05/25/19 Urine Culture - Final, Complete 05/31/19 Gram Stain - Final, Complete 05/31/19 Wound Culture - Final, Complete Enterobacter Cloacae Complex Allergies Coded Allergies: doxycycline (Verified Adverse Reaction, Unknown, 05/31/19) nausea and vomiting (per office chart) Home Medications Scheduled Aspirin (Aspirin) 325 Mg Tablet, 325 MG PO DAILY, (Reported) Chlorthalidone (Chlorthalidone) 25 Mg Tablet, 25 MG PO DAILY, (Reported) Clotrimazole/Betamethasone Dip (Lotrisone Cream) 15 Gm Cream..g., 1 APLCT TOP QAM-PM, (Reported) apply to affected area(s) Fluoxetine Hcl (Fluoxetine HCl) 20 Mg Capsule, 20 MG PO DAILY, (Reported) Lidocaine (Lidocaine) 5% Adh..patch, 1 PATCH TOP DAILY, (Reported) NEW RX FROM LAST NIGHT HAS NOT USED YET Lisinopril (Lisinopril) 20 Mg Tablet, 20 MG PO DAILY, (Reported) Metformin HCl (Metformin HCl) 500 Mg Tablet, 500 MG PO DAILY, (Reported) Omeprazole (Omeprazole) 20 Mg Capsule.dr, 20 MG PO DAILY, (Reported) Rosuvastatin Calcium (Rosuvastatin Calcium) 40 Mg Tablet, 40 MG PO QHS, (R eported) Trazodone HCl (Trazodone HCl) 100 Mg Tablet, 100 MG PO QHS, (Reported) Scheduled PRN Albuterol Sulfate (Ventolin Hfa) 18 Gm Hfa.aer.ad, 2 PUFFS INH Q4-6H PRN for SOB/WHEEZING, (Reported) Carisoprodol (Carisoprodol) 350 Mg Tablet, 350 MG PO TID PRN for MUSCLE SPASMS, (Reported) Cyclobenzaprine HCl (Cyclobenzaprine HCl) 10 Mg Tablet, 10 MG PO DAILY PRN for MUSCLE SPASMS, (Reported) Naproxen (Naproxen) 500 Mg Tablet, 500 MG PO BID PRN for PAIN, (Reported) GABBY RHODES PGY-3 Jun 03, 2019 16:41 FANG CHOI DO Jun 04, 2019 13:28
[2019-06-03 22:00] VITALS: BP 157/64
[2019-06-03] MEDS: traZODone 25MG PER 1/2 TABLET PO SCH (22:42)
[2019-06-04] MEDS: IPRATROPIUM 0.5MG/ALBUTEROL 2.5MG INH SOL UD 3ML (DUONEB)(J7620) NEB SCH ×5 (01:00→18:15)
[2019-06-04] MEDS: PERCOCET 5MG/325MG TAB PO PRN ×2 (04:51→20:45)
[2019-06-04 06:00] VITALS: BP 159/68
[2019-06-04 06:26] LABS: HEMATOCRIT 34.5 % (36.0-47.0); MEAN CORPUSCULAR HEMOGLOBIN 28.8 pg (27.0-33.0); MEAN CORPUSCULAR HGB CONC 31.9 g/dl (32.0-36.5); MEAN CORPUSCULAR VOLUME 90.3 fl (80.0-96.0); PLATELET COUNT, AUTOMATED 300 10^3/uL (150-450); RED BLOOD COUNT 3.82 10^6/uL (4.00-5.40); WHITE BLOOD COUNT 9.7 10^3/uL (4.0-10.0)
[2019-06-04 06:55] LABS: CALCIUM LEVEL 8.7 MG/DL (8.8-10.2); CREATININE FOR GFR 2.19 MG/DL (0.55-1.30); GLOMERULAR FILTRATION RATE 24.4 (>45); POTASSIUM SERUM 3.7 MEQ/L (3.5-5.1)
--- NOTE | 2019-06-04 07:16 | REP ---
ULTRASOUND LEFT LABIA: Ultrasound of the left labia is performed to evaluate for possible fluid collection. There is an underlying fluid collection identified at this location which measures 5.0 x 3.5 x 3.0 cm. This may represent an abscess. Electronically Signed by Ashwin Chapin MD 06/05/2019 09:42 A
--- NOTE | 2019-06-04 08:31 | IPNPDOC ---
Subjective Date Seen The patient was seen on 06/04/19. Subjective Chief Complaint/HPI Pt this morning states that her labial abscess cont to drain, it is less swollen and maybe less tender. She denies fevers. She wants to go home. General: Denies: Fatigue Constitutional: Denies: Chills, Fever ENT: Denies: Head Aches Pulmonary: Denies: Dyspnea, Cough Cardiovascular: Denies: Chest Pain, Palpitations Gastrointestinal: Denies: Nausea, Vomiting, Diarrhea Neurological: Reports: Weakness Psych: Reports: Mood Normal Objective Physical Examination General Exam: Positive: Alert, No Acute Distress, Other (morbidly obese) Chest Exam: Positive: Clear to auscultation, Normal air movement Heart Exam: Positive: Rate Normal, Regular Rhythm, Normal S1, Normal S2 Abdomen Exam: Positive: Normal bowel sounds, Soft, Other (obese); Negative: Tenderness Extremity Exam: Positive: Edema (1+), Normal pulses Psych Exam: Positive: Mental status NL Assessment /Plan Problems (1) Left genital labial abscess Problem Text: 06/04 Pt has been seen by BULKING MACHINE OPERATOR who has no additional recommendations. Cont with renally dosed Levaquin, likely can transition to PO and be d/c tomorrow. 06/03 I don't think this is really adequately draining, in part likely d/t her body habitus, she will need to go to IR today to have this addressed further, the order has been placed and the pt and nursing are aware. I will consult BULKING MACHINE OPERATOR to have them come take a look at her as well. She should cont with Levaquin, renally dosed. 06/02 -- Culture results returned, and patient switched to Levaquin per culture and KETAN. Levaquin is dosed per renal function, and if her renal function continues to improve, this will require attention to ensure that dosing remains therapeutic. On vancomycin and Zosyn. Draining. Imaging confirms no loculations, fistulous tracts. Leukocytosis improving. Will apply Optilock until wound care consult. (2) Leukocytosis Status: Acute Problem Text: 06/04 Cont to improve, 06/01 -- Improving, on antibiotics and with drainage of abscess. 05/31 WBC remains elevated down from 20.6 to 19.6, cont to monitor. 05/30 Ddx: infection, leukemia, reactive etiology also causing AKI3 05/29 last dose flucon // 629 vanco and Zosyn 05/30 repeat BCX x 2, check diff/peripheral smear/LDH, 05/27 CT chest/AP NAD 04/2019 BCX2, UCX NG 03/2019 WBC baseline 7.7 c normal diff (3) Acute renal failure Status: Acute Discussed With: Marketing Teacher Problem Specific Plan: Consult Specialist, Monitor Clinically, Repeat Labs Problem Text: 06/04 Renal function cont to improve. 06/02 -- renal function improving; nephrology is consulted and believes that she may not require future dialysis. 06/01 -- renal function improving 05/31 Dialysis planned for today, nonoliguric 05/30 mgmt per nephrology, slight improvement in GFR sp HD 05/27 -urine for eos working etiology medication induced (on admission on lisin 20, met 500, nap 500 BID, CTD 25, asa 325-although on same regimen 03/2019 cr at baseline 0.9, ROBERT/creatinine 27) 05/26 KENNY/ANCA P 05/26 SPEP s M spike (4) Acidosis, metabolic, with respiratory acidosis Status: Resolved Discussed With: Marketing Teacher Problem Specific Plan: Consult Specialist, Monitor Clinically, Repeat Labs Problem Text: 05/27/19: ABG has stabilized as of this morning. Transition to med/surg with telemetry due to electrolyte disturbance. This is a combination of stress of the respiratory compromise and the renal failure. Treatment will be geared at fixing these component parts. She currently requires ICU care for this problem. (5) DM (diabetes mellitus), type 2 Status: Chronic Response to Treatment: Stable Problem Specific Plan: Repeat Tests Problem Text: diet controlled (6) Hypertension Status: Chronic Problem Text: BP is stable and if anything low. Her antihypertensives (chlorthalidone and lisinopril) are on hold due to MARSHALL (7) Chronic pain Status: Chronic Problem Specific Plan: Monitor Clinically Problem Text: 05/31 no complaints this morning. 05/30 She is too ill to complain of this right now. However, she must be carefully counseled to avoid NSAIDs once she is able to understand this better. I believe that accidental NSAID overdose plays a significant role in this admission. (8) Depression Status: Chronic Problem Text: Stable on HD fluox 20 Plan/VTE VTE Prophylaxis Ordered?: Yes (SQ heparin) Plan Therapy: PT, OT VS, I&O, 24H, Fishbone Vital Signs/I&O Vital Signs Date Time Temp Pulse Resp B/P (MAP) Pulse Ox O2 Delivery O2 Flow Rate FiO2 06/04/19 06:00 96.8 82 20 159/68 (98) 94 I&O- Last 24 Hours up to 6 AM 06/04/19 05:59 Intake Total 2750 ml Output Total 2550 ml Balance 200 ml Laboratory Data 24H LABS Laboratory Tests 2 06/03/19 12:01: Bedside Glucose (Misc Panel) 69L 06/03/19 16:38: Bedside Glucose (Misc Panel) 95 06/03/19 20:50: Bedside Glucose (Misc Panel) 101 06/04/19 06:06: Nucleated Red Blood Cells % (auto) 0.0, Anion Gap 9, Glomerular Filtration Rate 24.4L, Blood Urea Nitrogen 31H, Creatinine 2.19H, Sodium Level 142, Potassium Level 3.7, Chloride Level 109H, Carbon Dioxide Level 24, Calcium Level 8.7L CBC/BMP Laboratory Tests 06/04/19 06:06 Red Blood Count 3.82 L, Mean Corpuscular Volume 90.3, Mean Corpuscular Hemoglobin 28.8, Mean Corpuscular Hemoglobin Concent 31.9 L, Red Cell Distribution Width 14.5, Calcium Level 8.7 L Microbiology Microbiology 05/31/19 Blood Culture - Preliminary, Resulted No Growth after 72 hours. All specime... 05/30/19 Blood Culture - Preliminary, Resulted No Growth after 72 hours. All specime... 05/25/19 Blood Culture - Final, Complete NO GROWTH AFTER 5 DAYS 05/25/19 Blood Culture - Final, Complete NO GROWTH AFTER 5 DAYS 05/26/19 MRSA Screen - Final, Complete 05/25/19 Urine Culture - Final, Complete 05/31/19 Gram Stain - Final, Complete 05/31/19 Wound Culture - Final, Complete Enterobacter Cloacae Complex NEIDA DEAL PA-C Jun 04, 2019 08:30
[2019-06-04] MEDS: FLUoxetine 20 MG CAP PO SCH (08:36)
[2019-06-04] MEDS: HEPARIN SOD (PORCINE) 5000 UNITS/ML VIAL SC SCH ×2 (08:36→20:42)
[2019-06-04] MEDS: OMEPRAZOLE 20 MG CAP PO SCH (08:36)
[2019-06-04] MEDS: amLODIPine 5 MG TAB PO SCH (08:36)
[2019-06-04] MEDS: NYSTATIN 100,000 UNITS/GM TOPICAL PWD 15 GM TOP SCH ×2 (08:37→20:43)
[2019-06-04] MEDS: DIAPER RELIEF PASTE (DESITIN) 60GM TOP SCH ×3 (08:38→20:42)
--- NOTE | 2019-06-04 09:55 | CR.PDOC ---
General Date of Consultation: Jun 04, 2019 Attending Physician: FANG CHOI DO Consultation F/U CONSULT NOTE 58 yo G0 admitted with MARSHALL, MAINSPRING STRIP INSPECTOR was consulted for labial abscess. Abscess has been spontaneously draining, cultures from wound sensitive to levaquin, pt is being transitioned to PO meds today per primary team. VSS, afebrile overnight. On exam today, mons erythema is improved. There is still significant induration, however slightly improved as well. No tenderness on mons. On left labia majora, there is still purulent drainage, also decreased from yesterdau WBC decreased to 9.7 Assessment: Labial abscess improving on antibiotics, continue per primary team. She can follow up with [facility] 2-3 weeks following discharge from hospital. Pt seen with Dr. Steph Burns, PGY3 I attest to the above information after interviewing and examining the patient alongside Dr. Burns. Jessica Choi DO Vital Signs/I&O Vital Signs Date Time Temp Pulse Resp B/P (MAP) Pulse Ox O2 Delivery O2 Flow Rate FiO2 06/04/19 08:36 82 159/68 06/04/19 06:00 96.8 20 94 I&O- Last 24 Hours up to 6 AM 06/04/19 06:00 Intake Total 2600 ml Output Total 2550 ml Balance 50 ml Laboratory Data Labs 24H Laboratory Tests 2 06/03/19 12:01: Bedside Glucose (Misc Panel) 69L 06/03/19 16:38: Bedside Glucose (Misc Panel) 95 06/03/19 20:50: Bedside Glucose (Misc Panel) 101 06/04/19 06:06: Nucleated Red Blood Cells % (auto) 0.0, Anion Gap 9, Glomerular Filtration Rate 24.4L, Blood Urea Nitrogen 31H, Creatinine 2.19H, Sodium Level 142, Potassium Level 3.7, Chloride Level 109H, Carbon Dioxide Level 24, Calcium Level 8.7L CBC/BMP Laboratory Tests 06/04/19 06:06 Red Blood Count 3.82 L, Mean Corpuscular Volume 90.3, Mean Corpuscular Hemoglobin 28.8, Mean Corpuscular Hemoglobin Concent 31.9 L, Red Cell Distribution Width 14.5, Calcium Level 8.7 L Microbiology Microbiology 05/31/19 Blood Culture - Preliminary, Resulted No Growth after 72 hours. All specime... 05/30/19 Blood Culture - Preliminary, Resulted No Growth after 72 hours. All specime... 05/25/19 Blood Culture - Final, Complete NO GROWTH AFTER 5 DAYS 05/25/19 Blood Culture - Final, Complete NO GROWTH AFTER 5 DAYS 05/26/19 MRSA Screen - Final, Complete 05/25/19 Urine Culture - Final, Complete 05/31/19 Gram Stain - Final, Complete 05/31/19 Wound Culture - Final, Complete Enterobacter Cloacae Complex Allergies Coded Allergies: doxycycline (Verified Adverse Reaction, Unknown, 05/31/19) nausea and vomiting (per office chart) Home Medications Scheduled Aspirin (Aspirin) 325 Mg Tablet, 325 MG PO DAILY, (Reported) Chlorthalidone (Chlorthalidone) 25 Mg Tablet, 25 MG PO DAILY, (Reported) Clotrimazole/Betamethasone Dip (Lotrisone Cream) 15 Gm Cream..g., 1 APLCT TOP QAM-PM, (Reported) apply to affected area(s) Fluoxetine Hcl (Fluoxetine HCl) 20 Mg Capsule, 20 MG PO DAILY, (Reported) Lidocaine (Lidocaine) 5% Adh..patch, 1 PATCH TOP DAILY, (Reported) NEW RX FROM LAST NIGHT HAS NOT USED YET Lisinopril (Lisinopril) 20 Mg Tablet, 20 MG PO DAILY, (Reported) Metformin HCl (Metformin HCl) 500 Mg Tablet, 500 MG PO DAILY, (Reported) Omeprazole (Omeprazole) 20 Mg Capsule.dr, 20 MG PO DAILY, (Reported) Rosuvastatin Calcium (Rosuvastatin Calcium) 40 Mg Tablet, 40 MG PO QHS, (Reported) Trazodone HCl (Trazodone HCl) 100 Mg Tablet, 100 MG PO QHS, (Reported) Scheduled PRN Albuterol Sulfate (Ventolin Hfa) 18 Gm Hfa.aer.ad, 2 PUFFS INH Q4-6H PRN for SOB/WHEEZING, (Reported) Carisoprodol (Carisoprodol) 350 Mg Tablet, 350 MG PO TID PRN for MUSCLE SPASMS, (Reported) Cyclobenzaprine HCl (Cyclobenzaprine HCl) 10 Mg Tablet, 10 MG PO DAILY PRN for MUSCLE SPASMS, (Reported) Naproxen (Naproxen) 500 Mg Tablet, 500 MG PO BID PRN for PAIN, (Reported) MEAGAN,GABBY PGY-3 Jun 04, 2019 09:55 FANG CHOI DO Jun 04, 2019 13:30
[2019-06-04] MEDS: DYAZIDE 37.5/25 CAP (TRIAM/HCTZ) PO SCH (10:59)
[2019-06-04 14:00] VITALS: BP 169/78
[2019-06-04] MEDS ORDERED: LevoFLOXacin IV 250 MG in APPROPRIATE DILUENT 1 EA IV SCH (14:00)
--- NOTE | 2019-06-04 17:56 | IPN ---
DATE: 06/04/2019 Mrs. Mathews is seen this morning on her bedside. She is sitting in the chair after she took a shower. She is feeling much better today. She denies any dyspnea, chest pain, nausea or vomiting. PHYSICAL EXAMINATION: Temperature 96.8 degrees Fahrenheit, heart rate 82 per minute and respiratory rate 20 per minute. Blood pressure 159/68 mmHg and oxygen saturation 94% on room air. Heart sounds are regular. Lungs are clear to auscultation. Neck veins are not abnormally distended. Abdomen is soft and nontender. Bowel sounds are normal. Extremities have no cyanosis or clubbing. Neurologically, she is awake, alert and oriented times three. LABORATORY DATA: Today's laboratories show WBC count 9.7, hemoglobin 11.0 and hematocrit 34.5. Sodium 142, potassium 3.7, BUN 31 and creatinine 2.19. PROBLEMS: 1. Acute renal failure superimposed on chronic kidney disease. Kidney function is improving nicely and electrolytes are stable. Dialysis catheter has already been removed. 2. Hypervolemia and hypertension. She was on chlorthalidone at home in addition to lisinopril and both have been on hold. Blood pressure is slightly high and I am going to start her on Dyazide 37.5/25 mg once daily. We will continue to hold her angiotensin-converting enzyme (LISA) inhibitor for now. 3. Anemia. Her anemia is stable at this point and no other intervention is indicated. DISPOSITION: The patient seems to be doing well and probably can be discharged to home from a renal standpoint whenever she is ready and will followup in the office for her chronic kidney disease.
[2019-06-04 22:00] VITALS: BP 137/63
[2019-06-04] MEDS: traZODone 25MG PER 1/2 TABLET PO SCH (22:29)
[2019-06-05 06:00] VITALS: BP 141/63
[2019-06-05] MEDS ORDERED: LevoFLOXacin 250 MG TABLET PO SCH (06:00)
[2019-06-05 06:27] LABS: HEMATOCRIT 35.4 % (36.0-47.0); HEMOGLOBIN 11.3 g/dl (12.0-15.5); MEAN CORPUSCULAR HEMOGLOBIN 28.2 pg (27.0-33.0); MEAN CORPUSCULAR HGB CONC 31.9 g/dl (32.0-36.5); MEAN CORPUSCULAR VOLUME 88.3 fl (80.0-96.0); PLATELET COUNT, AUTOMATED 379 10^3/uL (150-450); RED BLOOD COUNT 4.01 10^6/uL (4.00-5.40); WHITE BLOOD COUNT 9.2 10^3/uL (4.0-10.0)
[2019-06-05 06:50] LABS: CALCIUM LEVEL 8.8 MG/DL (8.8-10.2); CREATININE FOR GFR 1.99 MG/DL (0.55-1.30); GLOMERULAR FILTRATION RATE 27.2 (>45); POTASSIUM SERUM 3.8 MEQ/L (3.5-5.1)
[2019-06-05] MEDS: IPRATROPIUM 0.5MG/ALBUTEROL 2.5MG INH SOL UD 3ML (DUONEB)(J7620) NEB SCH (07:23)
[2019-06-05] MEDS: NYSTATIN 100,000 UNITS/GM TOPICAL PWD 15 GM TOP SCH (08:38)
[2019-06-05] MEDS: OMEPRAZOLE 20 MG CAP PO SCH (08:38)
[2019-06-05 08:39] VITALS: BP 141/63
[2019-06-05] MEDS: FLUoxetine 20 MG CAP PO SCH (08:39)
[2019-06-05] MEDS: amLODIPine 5 MG TAB PO SCH (08:39)
[2019-06-05] MEDS: DYAZIDE 37.5/25 CAP (TRIAM/HCTZ) PO SCH (08:39)
[2019-06-05] MEDS: PERCOCET 5MG/325MG TAB PO PRN (08:39)
[2019-06-05] MEDS: HEPARIN SOD (PORCINE) 5000 UNITS/ML VIAL SC SCH (08:40)
[2019-06-05] MEDS: DIAPER RELIEF PASTE (DESITIN) 60GM TOP SCH (08:40)
[2019-06-05] MEDS ORDERED: AMLO5TAB6 PO (09:32)
[2019-06-05] MEDS ORDERED: NYAM10003 TOP (09:32)
[2019-06-05] MEDS ORDERED: TRAZ-252 PO (09:32)
[2019-06-05] MEDS ORDERED: PERCOCET PO (09:32)
[2019-06-05] MEDS ORDERED: LEVO250T12 PO (09:32)
[2019-06-05] MEDS ORDERED: Petrolatum,White TOP (09:32)
[2019-06-05] MEDS ORDERED: TRIA37.53 PO (09:32)
[2019-06-05 13:14] LABS: UPEP INTERPRETATION NO M-SPIKE NOTED; URINE VOLUME RANDOM ML
--- NOTE | 2019-06-05 18:02 | DSES ---
DATE OF ADMISSION: 05/25/2019 DATE OF DISCHARGE: 06/05/2019 BRIEF HISTORY AND PHYSICAL: The patient is a 58-year-old patient of Dr. Mosher who presented to the emergency room on May 19 complaining of groin and hip pain, diagnosed with a muscle strain and discharged home. She reportedly has chronic sciatic back pain, for which she had been taking Motrin without relief. She also takes naproxen and a full-dose dose aspirin. She was taking ibuprofen 800 mg every 4-6 hours. Upon returning to the emergency room, she had leg swelling that had gotten worse over the past few weeks, worsening back pain, and some clouded mental status and difficulty with her thoughts.. She was started on Suboxone, which she did not tolerate, self-discontinued it 3 days earlier. She was found to be an acute renal failure with hyperkalemia. PERTINENT LABORATORIES ON ADMISSION: White count 26.9, hemoglobin 11.5, platelets 275,000. Sodium 132, potassium 6.7, BUN 101, creatinine 7.34, glucose 97. AST 91, ALT 39. CK was 2920. ProBNP 2436. HOSPITAL COURSE: The patient was admitted with acute renal failure, nonoliguric, less likely secondary to combination of dehydration from occult infection and a combination of nonsteroidal antiinflammatories, lisinopril, metformin, and chlorthalidone. Nephrology was consulted. Renal ultrasound showed gallbladder distension with no stones. Kidneys were normal in size with no sister hydronephrosis. Catheter was placed, and the patient was dialyzed at the bedside. She was given Kayexalate and dialyzed with a 1K bath. She had another dialysis session on the following day, and a central venous catheter was inserted by Dr. López on admission. By May 28, she was improving but had some lower extremity edema. She received a single dose of Lasix at that time, and her renal function was monitored; however, her creatinine remained above 4, and so she was dialyzed again on May 31 with further fluid removal during dialysis. By June 02 her renal function had improved to the point where she needed no further dialysis, and her Perm-A-Cath was removed on June 03. . On the date of discharge her renal function continued to improve with a BUN of 28, creatinine 1.99. She will continue to hold her angiotensin-converting enzyme (LISA) inhibitor and metformin as well as all nonsteroidal anti-inflammatory drugs (NSAIDs). She has been started on Dyazide 37.5/25 for her hypervolemia and hypertension, and she will have followup with nephrology as an outpatient. 2. Leukocytosis. She was treated empirically with his vancomycin and Zosyn, initially but there was no underlying etiology for this and felt to be reactive initially. She did have a labial abscess that was found, however, and this was draining. Her leukocytosis normalized, and she has been switched to Levaquin to manage cellulitis of the area. She is renally dosed 250 mg every other day, and she will followup with [facility] in 2-3 weeks. 3. Labial abscess. See above. 4. Diabetes mellitus, type 2. Metformin is held. She will need followup as an outpatient. Diet controlled. 5. Hypertension. As above, chlorthalidone and lisinopril were held. She will be discharged home on amlodipine and Dyazide, which was added yesterday. 6. Chronic pain. She has severe degenerative disc disease. She is to avoid all NSAIDs, and she will be discharged home on narcotics with followup with her primary for further management. Patient is stable for discharge home. Followup with Dr. Mosher next week. Followup with Dr. Brown per his office. Followup with [facility] in 2-3 weeks. Diet: No added salt, consistent carbohydrate. Activity with a rolling walker. MEDICATIONS: - amlodipine 5 mg daily - Desitin one dose topically three times a day - Levaquin 250 mg every 48 hours for 10 days - nystatin topically - Percocet one tablet every 6 hours as needed for pain - trazodone 25 mg at bedtime - triamterene/hydrochlorothiazide 37.5/25 one capsule daily - albuterol two puffs every 4-6 hours as needed for shortness of breath - carisoprodol 350 mg three times a day as needed for muscle spasms - cyclobenzaprine 10 mg daily as needed for muscle spasms - fluoxetine 20 mg daily - lidocaine patches topically - omeprazole 20 mg daily Her aspirin, chlorthalidone, lisinopril, metformin, naproxen, rosuvastatin, and high-dose trazodone have been discontinued. DISCHARGE DIAGNOSES: 1. Acute renal failure superimposed on chronic kidney disease. 2. Hypervolemia. 3. Hypertension. 4. Metabolic acidosis. 5. Diabetes mellitus, type 2. 6. Labial abscess. 7. Leukocytosis, reactive 8. Chronic back pain. 9. Depression, chronic. MTDD
== END 2019-06-05 11:06 | disposition home or self-care (01) | DRG 917 ==
LOC: M ED 21:10 → CANBEDREQ 23:25 → M ED INP 23:40 → M ICU 05-26 01:25 → M MSPAV 05-27 14:28
PROVIDERS: ADMIT Internal Medicine; ATTEND Family Medicine
PROC: 0JH63XZ Insertion of Tunneled Vascular Access Device into Chest Subcutaneous Tissue and Fascia, Percutaneous Approach (ICD-10-PCS; 2019-05-26)
PROC: 02HV33Z Insertion of Infusion Device into Superior Vena Cava, Percutaneous Approach (ICD-10-PCS; principal; 2019-05-26 12:24)
DX: T39.311A Poisoning by propionic acid derivatives, accidental (unintentional), initial encounter (principal); R65.11 Systemic inflammatory response syndrome (SIRS) of non-infectious origin with acute organ dysfunction; N17.9 Acute kidney failure, unspecified; E87.2 Acidosis; Z68.44 Body mass index [BMI] 60.0-69.9, adult; N76.4 Abscess of vulva; M62.82 Rhabdomyolysis; E87.1 Hypo-osmolality and hyponatremia; Q76.49 Other congenital malformations of spine, not associated with scoliosis; E66.01 Morbid (severe) obesity due to excess calories; E11.9 Type 2 diabetes mellitus without complications; I10 Essential (primary) hypertension; F32.9 Major depressive disorder, single episode, unspecified; E87.70 Fluid overload, unspecified; F17.200 Nicotine dependence, unspecified, uncomplicated; M19.90 Unspecified osteoarthritis, unspecified site; K21.9 Gastro-esophageal reflux disease without esophagitis; G47.33 Obstructive sleep apnea (adult) (pediatric); E53.8 Deficiency of other specified B group vitamins; E87.5 Hyperkalemia; G89.29 Other chronic pain; E78.5 Hyperlipidemia, unspecified; Z79.82 Long term (current) use of aspirin; Z79.899 Other long term (current) drug therapy; J45.909 Unspecified asthma, uncomplicated; R31.9 Hematuria, unspecified; Z88.8 Allergy status to other drugs, medicaments and biological substances; Y92.009 Unspecified place in unspecified non-institutional (private) residence as the place of occurrence of the external cause

== ENCOUNTER → 2019-06-12 | Outpatient (CLI) | payer MEDICARE ==
[~2019-06-12] MED LIST changes: +AMLO5TAB6 PO; +CARI1TAB7 PO; +CYCL10TA PO; +FLUO20CA8 PO; +LEVO250T12 PO; +LIDO1PAD TOP; +NAPR-885 PO; +NYAM10003 TOP; +PERCOCET PO; +Petrolatum,White TOP; -ROSUVASTATIN 10 MG TAB (CRESTOR) PO SCH; +TRAZ-252 PO; +TRIA37.53 PO
[2019-06-12 20:23] LABS: BASO # 0.1 10^3/uL (0.0-0.2); BASO % 1.1 % (0.0-1.0); EOS # 0.3 10^3/uL (0.0-0.50); HEMATOCRIT 39.6 % (36.0-47.0); HEMOGLOBIN 12.9 g/dl (12.0-15.5); LYMPH # 3.5 10^3/uL (1.5-4.5); LYMPH % 39.6 % (24.0-44.0); MEAN CORPUSCULAR HGB CONC 32.6 g/dl (32.0-36.5); MONO # 0.8 10^3/uL (0.0-0.8); MONO % 9.2 % (0.0-5.0); NEUTROPHILS # 4.1 10^3/uL (1.8-7.7); NEUTROPHILS % 46.6 % (36.0-66.0); PLATELET COUNT, AUTOMATED 445 10^3/uL (150-450); RED BLOOD COUNT 4.45 10^6/uL (4.00-5.40); WHITE BLOOD COUNT 8.7 10^3/uL (4.0-10.0)
[2019-06-12 20:45] LABS: BILIRUBIN,TOTAL 0.3 MG/DL (0.2-1.0); CALCIUM LEVEL 9.5 MG/DL (8.8-10.2); CREATININE FOR GFR 1.87 MG/DL (0.55-1.30); GLOMERULAR FILTRATION RATE 29.2 (>45); POTASSIUM SERUM 4.4 MEQ/L (3.5-5.1)
[2019-06-12 20:46] LABS: ALBUMIN 3.6 GM/DL (3.2-5.2); CHOLESTEROL RISK RATIO 5.55 (<5); TOTAL PROTEIN 7.7 GM/DL (6.4-8.2)
[2019-06-12 20:54] LABS: HEMOGLOBIN A1c 6.2 %
== END ==
LOC: M WUC 16:33
PROVIDERS: ATTEND Family Medicine
DX: I10 Essential (primary) hypertension (principal); R73.01 Impaired fasting glucose; E78.5 Hyperlipidemia, unspecified; Z79.899 Other long term (current) drug therapy

== ENCOUNTER → 2019-06-26 | Outpatient (CLI) | payer MEDICARE ==
[~2019-06-26] MED LIST changes: +FLUO20CA20 PO; -FLUO20CA8 PO; -TRAZ-163 PO; +TRAZ-257 PO
--- NOTE | 2019-07-13 00:42 | ECWPNPC ---
PATIENT NAME: MORENA PRITCHARD : 1960 GENDER: FEMALE VISIT DATE: 06/26/2019 DISCHARGE DATE: 06/26/19 1234 VISIT LOCKED DATE TIME: PHYSICIAN: TIMOTHY BARBOUR PHYSICIAN PAGER NO: [phone] RESOURCE: TIMOTHY BARBOUR REASON FOR APPOINTMENT 1. TALK ABOUT INJECTION THERAPY HISTORY OF PRESENT ILLNESS HISTORY OF PRESENT ILLNESS: HERE FOR F/U LBP PER DR SAMSON.I SPOKE WITH DR SAMSON AND HE WOULD LIKE US TO TRIAL INJECTION THERAPY AND STATES PATIENT IS RECEPTIVE NOW.HX OF MULTIPLE COMORBIDITIES.SHE IS IN WHEELCHAIR.ACCOMPANIED IN EXAM ROOM WITH A FRIEND.AFFECT IS CONSTRICTED AND DEPRESSED.RATING PAIN VAS 10/10.PAIN OS LOCATED ACROSS LOW BACK WITH RADIATION INTO LEFT GROIN.STATES SHE IS UNABLE TO SLEEP AT NIGHT.DESCRIBES PAIN STABBING,SHARP AND BURNING. PAIN THE PATIENT DESCRIBES THE PAIN... FALL RISK SCREENING: SCREENING :NO FALLS REPORTED IN THE LAST YEAR CURRENT MEDICATIONS TAKING ALBUTEROL SULFATE HFA 108 (90 BASE) MCG/ACT AEROSOL SOLUTION 2 PUFFS INHALATION FOUR TIMES A DAY NEEDED TAKING FLUOXETINE HCL 20 MG CAPSULE 1 TABLET IN THE MORNING ORALLY ONCE A DAY TAKING TRIAMTERENE-HCTZ 37.5-25 MG TABLET 1 TABLET IN THE MORNING ORALLY ONCE A DAY TAKING AMLODIPINE BESYLATE 5 MG TABLET 1 TABLET ORALLY ONCE A DAY TAKING NYSTATIN DIRECTED POWDER 15 GRAM TOPICALLY TWICE A DAY TO AFFECTED AREA TAKING OMEPRAZOLE 20 CAPSULE DELAYED RELEASE 1 CAPSULE ORALLY ONCE DAILY TAKING TRAZODONE HCL 50 MG TABLET 1/2 TABLET ORALLY AT BEDTIME TAKING OXYCODONE-ACETAMINOPHEN 5-325 MG TABLET 1 TABLET NEEDED ORALLY EVERY 6 HRS FOR MILD/MODERATE PAIN NOT-TAKING PRILOSEC 20 MG CAPSULE DELAYED RELEASE 2 CAPSULE ORALLY ONCE A DAY NOT-TAKING ROSUVASTATIN CALCIUM 40 MG TABLET 1 TABLET ORALLY ONCE A DAY NOT-TAKING LEVOFLOXACIN 250 MG TABLET 1 TABLET ORALLY EVERY 48 HOURS NOT-TAKING DULOXETINE HCL 20 MG CAPSULE DELAYED RELEASE PARTICLES 1 CAPSULE ORALLY QAM PAST MEDICAL HISTORY 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 MRI L4/5 R HNP C B NF NARROWING CT LS MOD L4-1 DSN, MOD [facility], MILD B NFN HYPERLIPIDEMIA 2B NICOTINE ADDICTION ASTHMA, MILD, PERSISTENT, COLD-INDUCED GERD BILATERAL LOWER EXTREMITY VENOUS INSUFFICIENCY BILATERAL KNEE OSTEOARTHRITIS HYPERTENSION-AUGUST 2006 [id number] OBESITY IMPAIRED FASTING GLUCOSE L NON-DISPLACED TRIQUETAL FRACTURE S/P MECHANICAL FALL-12/12/2013 TREATED C SPLINT BY DARSHAN CASSIDY ARF 05/2019 PER HOSP GERD B KNEE OA-R>L MODERATE MEDIAL COMPARTMENT NARROWING, SEVERE C STANDING BY 05/2017 XRAY MAUREEN ALLERGIES DOXYCYCLINE HYCLATE: NAUSEA/VOMITING - SIDE EFFECTS SURGICAL HISTORY LEFT BREAST MILK DUCT REMOVED ADENOIDECTOMY FAMILY HISTORY FATHER: ALIVE 80S YRS, NO KNOWN MEDICAL PROBLEMS, DIAGNOSED WITH CANCER MOTHER: 65 YRS, 2 TO ME, ALCOHOLIC. BREAST CANCER DX AT 66., HEART DISEASE 2 BROTHER(S) - HEALTHY. NO FH DM2. SOCIAL HISTORY GENERAL: TOBACCO USE ARE YOU A:CURRENT SMOKER ARE YOU INTERESTED IN QUITTING?NOT READY TO QUIT COUNSELED THE PATIENT ON SMOKING EFFECTS, EDUCATION [id number]/31/2019 HOW MANY CIGARETTES A DAY DO YOU SMOKE?5 OR LESS HOW SOON AFTER YOU WAKE UP DO YOU SMOKE YOUR FIRST CIGARETTE?AFTER 60 MIN HOW OFTEN DO YOU SMOKE CIGARETTES?EVERY DAY PATIENT COUNSELED ON THE DANGERS OF TOBACCO USE AND URGED TO QUIT:06/26/2019 SMOKING CESSATION INFORMATION GIVEN06/26/2019 HIV / HEP-C SCREENING HIV TEST OFFERED TO PATIENT:YES DATE OFFERED:02/12/2018 TEST ACCEPTED:NO REASON:PATIENT DECLINED BROCHURE PROVIDED TO PATIENTYES HEP-C TEST OFFERED TO PATIENT:YES DATE OFFERED:02/12/2018 TEST ACCEPTED:NO REASON:PATIENT DECLINED PT STATES TEST WAS DONE IN PAST OTHERS AT HOME: SPOUSE, FATHER, 3 1/2 YEAR OLD GREAT NEPHEW - PT HAS CUSTODY. DIET: NO RESTRICTIONS. TRIES TO CUT BACK ON SUGAR AND SALT. EATS ONE MEAL DAILY, AT DINNER ONLY.. LANGUAGE LANGUAGES SPOKEN:FIJIAN DOMESTIC VIOLENCE DO YOU FEEL SAFE IN YOUR ENVIRONMENT?YES BMI CARE GOAL FOLLOW-UP ABOVE NORMAL BMI FOLLOW-UPGIVING ENCOURAGEMENT TO EXERCISE RECREATIONAL DRUG USE DRUG USE?NO EXERCISE: NO REGULAR EXERCISE, WALKS. 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 PAIN CLINIC PFS, CLERGY, PUBLIC HEALTH REFERRALS HAS THE PATIENT BEEN EDUCATED REGARDING HIS/HER PLAN OF CARE?YES HAS THE PATIENT BEEN EDUCATED REGARDING PAIN, THE RISK FOR PAIN, THE IMPORTANCE OF EFFECTIVE PAIN MANAGEMENT, AND THE PAIN ASSESSMENT PROCESS?YES LATEX QUESTIONNAIRE LATEX ALLERGY : HAVE YOU EVER DEVELOPED ANY TYPE OF REACTION AFTER HANDLING LATEX PRODUCTS SUCH RUBBER GLOVES, CONDOMS, DIAPHRAGMS, BALLOONS, SOCKS, OR UNDERWEAR?NO LATEX ALLERGY : HAVE YOU EVER DEVELOPED ANY TYPE OF REACTION DURING OR AFTER DENTAL APPOINTMENT, VAGINAL/RECTAL EXAMINATION, SURGICAL PROCEDURE, OR ANY OTHER EXPOSURE?NO LATEX RISK : HAVE YOU EVER HAD ANY DIFFICULTY BREATHING OR HIVES AFTER EATING OR HANDLING ANY FRUITS, OR VEGETABLES; SUCH KIWI, BANANAS, STONE FRUITS, OR CHESTNUTSNO LATEX RISK : DO YOU HAVE A PREVIOUS PERSONAL HISTORY OF MORE THAN NINE SURGERIES, SPINA BIFIDA, OR REPEATED CATHERIZATIONS? NO LATEX RISK : ARE YOU FREQUENTLY EXPOSED TO LATEX PRODUCTS IN YOUR OCCUPATION?NO DATE ASKED : 04/11/2019 CAFFEINE NONE. ADVANCE DIRECTIVE ADVANCE DIRECTIVE DISCUSSED WITH PATIENT:YES DECLINED INFORMATION HINDU [id number] BAPTIST MARITAL STATUS: . ALCOHOL SCREENING DID YOU HAVE A DRINK CONTAINING ALCOHOL IN THE PAST YEAR?YES HOW OFTEN DID YOU HAVE A DRINK CONTAINING ALCOHOL IN THE PAST YEAR?MONTHLY OR LESS (1 POINT) HOW MANY DRINKS DID YOU HAVE ON A TYPICAL DAY WHEN YOU WERE DRINKING IN THE PAST YEAR?5 OR 6 (2 POINTS) HOW OFTEN DID YOU HAVE SIX OR MORE DRINKS ON ONE OCCASION IN THE PAST YEAR?LESS THAN MONTHLY (1 POINT) POINTS4 INTERPRETATIONPOSITIVE OCCUPATION: DISABLED. SEXUAL HX HAD SEX IN THE LAST 12 MONTHS (VAGINAL, ORAL, OR ANAL)?NO HAVE YOU EVER HAD AN STD?NO GUARDIAN OF JOVITA'S 3 YOREVIEWED 10-29-18 NLREVIEWED WITH PATIENT 06/26/19 1143 NLJ. HOSPITALIZATION/MAJOR DIAGNOSTIC PROCEDURE ARF REQUIRING HD 2 DEHYDRATION/HIGH DOSE (NON-PRESCRIBED) NSAID USE/ACEI/CTD/METFORMIN USE/LABIAL ABSCESS, -BLE DVT US/CXR, BCX2 NG, UCX NG, -KENNY/ANCA/GBM; PEAK CR 7.4 C K 6.8, 24H PROT [id number] 05/25-06/05/19 REVIEW OF SYSTEMS REVIEWED BY: PROVIDER: TIMOTHY BACK . CONSTITUTIONAL: ANY CHANGE IN YOUR MEDICAL CONDITION? YES- 05/23/19 HOSPITALIZED WITH ARU- RECEIVED HD NOW UNDER CARE OF DR. ARMSTRONG, STATES NOW RESOLVED . CHILLS NO . FEVER NO . INFECTION: DO YOU HAVE NEW INFECTIONS? YES- CYST ON LABIA SAME TIME ARF WHICH SHE WAS ON AN ANTIBIOTIC FOR . DO YOU HAVE HISTORY OF MRSA? NO . MUSCULOSKELETAL: ANY NEW PATTERNS OF PAIN OR NUMBNESS? NO . GASTROENTEROLOGY: ANY NEW CHANGE IN BOWEL CONTROL? NO . GENITOURINARY: ANY NEW CHANGE IN BLADDER CONTROL? NO . IS THERE A CHANCE YOU COULD BE ? NO . HEMATOLOGY/LYMPH: DO YOU TAKE ANY BLOOD THINNERS? (FOR EXAMPLE- COUMADIN, PLAVIX, AGGRENOX, PLATEL, PRADAXA, OR XARELTO) NO . WHEN WAS YOUR LAST DOSE? DATE: TIME: . NEUROLOGY: HAVE YOU FALLEN IN THE PAST 12 MONTHS? YES- FELL PRIOR TO HOSPITALIZATION A COUPLE OF TIMES, NO INJURIES AND STATES SHE RECEIVED NO MEDICAL CARE FOR FALLS . ANY NEW EXTREMITY NUMBNESS OR WEAKNESS? NO . CARDIOLOGY: DO YOU HAVE A PACEMAKER OR DEFIBRILLATOR? NO . RESPIRATORY: HAVE YOU BEEN SICK IN THE PAST WEEK? NO . FEVER NO . FLU LIKE SYMPTOMS? NO . COUGH NO . INTEGUMENTARY: DO YOU HAVE ANY RASHES OR OPEN SORES? NO . ALLERGIC/IMMUNO: ARE YOU ALLERGIC TO IV DYE? NO . ANY NEW ALLERGIES? NO . PSYCHIATRIC: DO YOU HAVE THOUGHTS OF HURTING YOURSELF OR SOMEONE ELSE? NO . ARE YOU ABUSED, NEGLECTED, OR IN AN UNSAFE ENVIRONMENT? NO . ENDOCRINOLOGY: ARE YOU DIABETIC? NO . OTHER: DO YOU NEED ANY PRESCRIPTIONS? YES- OXYCODONE (PERSCRIBED BY DR SAMSON) . IF YES, PLEASE LIST: ____ . ANY NEW PROBLEMS WITH YOUR MEDICATIONS? NO . WHEN DID YOU LAST EAT? ____ . WHEN DID YOU LAST DRINK? ____ . WHAT DID YOU LAST DRINK? ____ . NAME OF PERSON DRIVING YOU HOME? ____ . DO YOU HAVE ANY OTHER QUESTIONS OR CONCERNS YES- DISCUSS INJECTION THERAPY . VITAL SIGNS WT 365.6 LBS, HT 65 IN, BMI 60.83 INDEX, BP 137/75 MM HG, HR 98 /MIN, RR 20 /MIN, TEMP 98.5 F, OXYGEN SAT % 97%, NA INITIALS SC 11:48. EXAMINATION GENERAL EXAMINATION: GENERAL AWAKE,ALERT ,PLEAASANT . PSYCH AFFECT NORMAL . LUNGS: LUNG HERRERA ARE CLEAR TO AUSCULTATION BILATERALLY. GOOD MOVEMENT OF AIR . HEART: S1, S2 IN A REGULAR RATE AND RHYTHM. NO SIGNIFICANT MURMURS, RUBS OR GALLOPS NOTED . MUSCULOSKELETAL: WEAK OVER RIGHT LEG . LUMBAR SACRAL SPINE PALPATION: + FOR PAIN OVER L/S SPINE. + FOR PAIN OVER L/S PARASPINALS SPECIFIC POINT TENDERNESS OVER BILAT. L4/5/L5/S1 LUMBAR FACETS WITH FACET LOADING. NEUROLOGIC EXAM: NORMAL SENSATION LIGHT TOUCH BILAT. LOWER EXTREMITIES . ASSESSMENTS LUMBOSACRAL SPONDYLOSIS WITH RADICULOPATHY - M47.27 (PRIMARY) TREATMENT LUMBOSACRAL SPONDYLOSIS WITH RADICULOPATHY NOTES: BILAT L4/5-L5/S1 LFBT W IV SEDATION. OTHERS NOTES: FACET JOINT INJECTIONS LUMBAR MATERIAL WAS PUBLISHED TO [employer]. PROCEDURE CODES FA211 ESTABILISHED PATIENT [facility] FACILITY CHARGE DISPOSITION & COMMUNICATION FOLLOW UP IV SED VISIT DR Mello (REASON: BILAT L4/5-L5/S1 LFBT W IV SEDATION) ELECTRONICALLY SIGNED BY NAZANIN VALLES ON 07/12/2019 AT 03:51 PM EDT DISCLAIMER : THIS IS A VISIT SUMMARY EXTRACTED FROM THE [employer] CHART. IT IS NOT A COPY OF THE [employer] PROGRESS NOTE. ОЛЬГА
== END ==
LOC: M PAIN 11:00
PROVIDERS: ATTEND Nurse Practitioner Family
DX: M47.27 Other spondylosis with radiculopathy, lumbosacral region (principal); E78.5 Hyperlipidemia, unspecified; J45.30 Mild persistent asthma, uncomplicated; K21.9 Gastro-esophageal reflux disease without esophagitis; M17.0 Bilateral primary osteoarthritis of knee; I10 Essential (primary) hypertension; R73.01 Impaired fasting glucose; G47.33 Obstructive sleep apnea (adult) (pediatric); F17.210 Nicotine dependence, cigarettes, uncomplicated; Z88.1 Allergy status to other antibiotic agents; E66.01 Morbid (severe) obesity due to excess calories; Z68.44 Body mass index [BMI] 60.0-69.9, adult; Z79.899 Other long term (current) drug therapy

== ENCOUNTER → 2019-07-15 | Outpatient (CLI) | payer MEDICARE ==
[~2019-07-15] MED LIST changes: -FLUO20CA20 PO; +FLUO20CA8 PO; +TRAZ-163 PO; -TRAZ-257 PO
--- NOTE | 2019-07-21 10:51 | SLEEPHOME ---
DATE OF PROCEDURE: 07/15/2019 ORDERED BY: Dr. Mosher Diagnostic home sleep testing was performed due to concern for the obstructive sleep apnea syndrome. For testing a nocturnal T3 respiratory monitoring device was used. Continuous record was made of pulse, oxygen saturation, airflow, chest, abdominal strain and body position. 4 hours of 7 minutes of data were reviewed. There were 3 hours and 12 minutes marked as time in bed. During the interval marked time in bed, there were 149 respiratory events identified of 10 seconds in duration or greater for a respiratory event index of 46.4. The events were obstructive. Baseline pulse rate 100 beats per minute, pulse rate ranged 73-122. Baseline saturation 94%. Saturations fell as low as 74%. Testing was performed in both the supine and nonsupine positions. IMPRESSION: Abnormal home sleep testing with repetitive respiratory events and oxygen desaturations to 74% with a respiratory event index of 46.4 is consistent with the obstructive sleep apnea syndrome. RECOMMENDATIONS: The patient should be encouraged to undergo a formal sleep evaluation.
== END ==
LOC: M SLEEP HO 14:22
PROVIDERS: ATTEND Family Medicine
DX: G47.33 Obstructive sleep apnea (adult) (pediatric) (principal)

== ENCOUNTER → 2019-07-15 | Outpatient (CLI) | payer MEDICARE ==
[2019-07-15 20:21] LABS: HEMATOCRIT 42.4 % (36.0-47.0); HEMOGLOBIN 13.9 g/dl (12.0-15.5); MEAN CORPUSCULAR HEMOGLOBIN 29.3 pg (27.0-33.0); MEAN CORPUSCULAR HGB CONC 32.8 g/dl (32.0-36.5); MEAN CORPUSCULAR VOLUME 89.5 fl (80.0-96.0); PLATELET COUNT, AUTOMATED 466 10^3/uL (150-450); RED BLOOD COUNT 4.74 10^6/uL (4.00-5.40); WHITE BLOOD COUNT 12.8 10^3/uL (4.0-10.0)
[2019-07-15 20:28] LABS: ALBUMIN 3.4 GM/DL (3.2-5.2); BILIRUBIN,TOTAL 0.2 MG/DL (0.2-1.0); CALCIUM LEVEL 9.7 MG/DL (8.8-10.2); CREATININE FOR GFR 1.32 MG/DL (0.55-1.30); GLOMERULAR FILTRATION RATE 43.7 (>45); POTASSIUM SERUM 3.9 MEQ/L (3.5-5.1)
[2019-07-15 21:21] LABS: ATYPICAL LYMPH 2 % (0-5); BASOPHILS 3 % (0-4); EOSINOPHILS 2 % (0-5); LYMPHOCYTES 42 % (16-52); MONOCYTES 4 % (0-8); NEUTROPHILS 47 % (35-75); PLATELET ESTIMATE INCREASED (NORMAL)
== END ==
LOC: M WUC 16:28
PROVIDERS: ATTEND Family Medicine
DX: F11.90 Opioid use, unspecified, uncomplicated (principal); N18.2 Chronic kidney disease, stage 2 (mild)
CPT/HCPCS: 36415; 80053; 80307; 85025; G0399

== ENCOUNTER → 2019-07-26 | Outpatient (CLI) | payer MEDICARE ==
--- NOTE | 2019-08-14 00:46 | ECWPNPC ---
PATIENT NAME: MORENA PRITCHARD : 1960 GENDER: FEMALE VISIT DATE: 07/26/2019 DISCHARGE DATE: 07/26/19 1532 VISIT LOCKED DATE TIME: PHYSICIAN: TIMOTHY BARBOUR PHYSICIAN PAGER NO: [phone] RESOURCE: TIMOTHY BARBOUR REASON FOR APPOINTMENT 1. DISCUSS OPTIONS HISTORY OF PRESENT ILLNESS HISTORY OF PRESENT ILLNESS: HERE FOR F/U OF CHRONIC BILAT. HIP AND LEG PAIN.RATING PAIN VAS 10/10.RECENTLY HOSPITALIZED FOR RENAL FAILURE.WAS EVALUATED BY [facility]OS IN [place] FOR HIP PAIN.SHE IS NOT A SURGICAL CANDIDATE.LBP HAS RESOLVED WITH TREATMENT -DYALISIS BUT SHE CONTINUES WITH SEVERE HIP PAIN.SHE WAS TREATED WITH PERCOCET 5/325 Q6H PRN FOR 2 WEEKS POST HOSPITALIZATION AND SHE WAS ABLE TO TOLERATE ACTIVITY. PAIN THE PATIENT DESCRIBES THE PAIN... FALL RISK SCREENING: SCREENING :NO FALLS REPORTED IN THE LAST YEAR CURRENT MEDICATIONS TAKING PRILOSEC 20 MG CAPSULE DELAYED RELEASE 2 CAPSULE ORALLY ONCE A DAY TAKING ALBUTEROL SULFATE HFA 108 (90 BASE) MCG/ACT AEROSOL SOLUTION 2 PUFFS INHALATION FOUR TIMES A DAY NEEDED TAKING ROSUVASTATIN CALCIUM 40 MG TABLET 1 TABLET ORALLY ONCE A DAY TAKING FLUOXETINE HCL 20 MG CAPSULE 1 TABLET IN THE MORNING ORALLY ONCE A DAY TAKING TRIAMTERENE-HCTZ 37.5-25 MG TABLET 1 TABLET IN THE MORNING ORALLY ONCE A DAY TAKING TRAZODONE HCL 50 MG TABLET 1 TABLET ORALLY AT BEDTIME TAKING OXYCODONE-ACETAMINOPHEN 5-325 MG TABLET 1 TABLET NEEDED ORALLY EVERY 6 HRS FOR MILD/MODERATE PAIN TAKING NYSTATIN DIRECTED POWDER 15 GRAM TOPICALLY TWICE A DAY TO AFFECTED AREA TAKING FLEXERIL 10 MG TABLET 1 TABLET ORALLY DAILY NEEDED MDD 1 TAKING AMLODIPINE BESYLATE 5 MG TABLET 1 TABLET ORALLY ONCE A DAY DISCONTINUED OMEPRAZOLE 20 CAPSULE DELAYED RELEASE TAKE 2 CAPSULES BY MOUTH ONCE A DAY , NOTES: DUPLICATE DISCONTINUED FLUOXETINE HCL 20 CAPSULE 1 TABLET IN THE MORNING ORALLY ONCE A DAY, NOTES: DUPLICATE DISCONTINUED TRIAMTERENE-HCTZ 37.5-25 MG TABLET 1 TABLET IN THE MORNING ORALLY ONCE A DAY, NOTES: DUPLICATE MEDICATION LIST REVIEWED AND RECONCILED WITH THE PATIENT PAST MEDICAL HISTORY 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 MRI L4/5 R HNP C B NF NARROWING CT LS MOD L4-1 DSN, MOD FJ[facility], MILD B NFN HYPERLIPIDEMIA 2B NICOTINE ADDICTION ASTHMA, MILD, PERSISTENT, COLD-INDUCED GERD BILATERAL LOWER EXTREMITY VENOUS INSUFFICIENCY BILATERAL KNEE OSTEOARTHRITIS HYPERTENSION-AUGUST 2006 [id number] OBESITY IMPAIRED FASTING GLUCOSE L NON-DISPLACED TRIQUETAL FRACTURE S/P MECHANICAL FALL-12/12/2013 TREATED C SPLINT BY DARSHAN CASSIDY ARF 05/2019 PER HOSP GERD B KNEE OA-R>L MODERATE MEDIAL COMPARTMENT NARROWING, SEVERE C STANDING BY 05/2017 XRAY MAUREEN ALLERGIES DOXYCYCLINE HYCLATE: NAUSEA/VOMITING - SIDE EFFECTS SURGICAL HISTORY LEFT BREAST MILK DUCT REMOVED ADENOIDECTOMY FAMILY HISTORY FATHER: ALIVE 80S YRS, NO KNOWN MEDICAL PROBLEMS, DIAGNOSED WITH OTHER MALIGNANT NEOPLASM OF UNSPECIFIED SITE MOTHER: 65 YRS, 2 TO OR, ALCOHOLIC. BREAST CANCER DX AT 66., UNSPECIFIED HEART DISEASE 2 BROTHER(S) - HEALTHY. NO FH DM2. SOCIAL HISTORY GENERAL: TOBACCO USE ARE YOU A:CURRENT SMOKER ARE YOU INTERESTED IN QUITTING?NOT READY TO QUIT COUNSELED THE PATIENT ON SMOKING EFFECTS, EDUCATION [id number]/16/2019 HOW MANY CIGARETTES A DAY DO YOU SMOKE?5 OR LESS HOW SOON AFTER YOU WAKE UP DO YOU SMOKE YOUR FIRST CIGARETTE?AFTER 60 MIN HOW OFTEN DO YOU SMOKE CIGARETTES?EVERY DAY PATIENT COUNSELED ON THE DANGERS OF TOBACCO USE AND URGED TO QUIT:07/12/2019 SMOKING CESSATION INFORMATION GIVEN07/12/2019 HIV / HEP-C SCREENING HIV TEST OFFERED TO PATIENT:YES DATE OFFERED:02/12/2018 TEST ACCEPTED:NO HEP-C TEST OFFERED TO PATIENT:YES DATE OFFERED:02/12/2018 REASON:PATIENT DECLINED TEST ACCEPTED:NO REASON:PATIENT DECLINED PT STATES TEST WAS DONE IN PAST BROCHURE PROVIDED TO PATIENTYES OTHERS AT HOME: SPOUSE, FATHER, 3 1/2 YEAR OLD GREAT NEPHEW - PT HAS CUSTODY. DIET: NO RESTRICTIONS. TRIES TO CUT BACK ON SUGAR AND SALT. EATS ONE MEAL DAILY, AT DINNER ONLY.. LANGUAGE LANGUAGES SPOKEN:MEXICAN DOMESTIC VIOLENCE DO YOU FEEL SAFE IN YOUR ENVIRONMENT?YES BMI CARE GOAL FOLLOW-UP ABOVE NORMAL BMI FOLLOW-UPGIVING ENCOURAGEMENT TO EXERCISE RECREATIONAL DRUG USE DRUG USE?NO EXERCISE: NO REGULAR EXERCISE, WALKS. 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 PAIN CLINIC PFS, CLERGY, PUBLIC HEALTH REFERRALS HAS THE PATIENT BEEN EDUCATED REGARDING HIS/HER PLAN OF CARE?YES HAS THE PATIENT BEEN EDUCATED REGARDING PAIN, THE RISK FOR PAIN, THE IMPORTANCE OF EFFECTIVE PAIN MANAGEMENT, AND THE PAIN ASSESSMENT PROCESS?YES LATEX QUESTIONNAIRE LATEX ALLERGY : HAVE YOU EVER DEVELOPED ANY TYPE OF REACTION AFTER HANDLING LATEX PRODUCTS SUCH RUBBER GLOVES, CONDOMS, DIAPHRAGMS, BALLOONS, SOCKS, OR UNDERWEAR?NO LATEX ALLERGY : HAVE YOU EVER DEVELOPED ANY TYPE OF REACTION DURING OR AFTER DENTAL APPOINTMENT, VAGINAL/RECTAL EXAMINATION, SURGICAL PROCEDURE, OR ANY OTHER EXPOSURE?NO DATE ASKED : 04/11/2019 LATEX RISK : HAVE YOU EVER HAD ANY DIFFICULTY BREATHING OR HIVES AFTER EATING OR HANDLING ANY FRUITS, OR VEGETABLES; SUCH KIWI, BANANAS, STONE FRUITS, OR CHESTNUTSNO LATEX RISK : DO YOU HAVE A PREVIOUS PERSONAL HISTORY OF MORE THAN NINE SURGERIES, SPINA BIFIDA, OR REPEATED CATHERIZATIONS? NO LATEX RISK : ARE YOU FREQUENTLY EXPOSED TO LATEX PRODUCTS IN YOUR OCCUPATION?NO CAFFEINE NONE. ADVANCE DIRECTIVE ADVANCE DIRECTIVE DISCUSSED WITH PATIENT:YES DECLINED INFORMATION OR ASSISTANCE CONFUCIANISM [id number] TEMPLE MARITAL STATUS: . ALCOHOL SCREENING DID YOU HAVE A DRINK CONTAINING ALCOHOL IN THE PAST YEAR?YES HOW OFTEN DID YOU HAVE SIX OR MORE DRINKS ON ONE OCCASION IN THE PAST YEAR?LESS THAN MONTHLY (1 POINT) HOW MANY DRINKS DID YOU HAVE ON A TYPICAL DAY WHEN YOU WERE DRINKING IN THE PAST YEAR?5 OR 6 (2 POINTS) HOW OFTEN DID YOU HAVE A DRINK CONTAINING ALCOHOL IN THE PAST YEAR?MONTHLY OR LESS (1 POINT) POINTS4 INTERPRETATIONPOSITIVE OCCUPATION: DISABLED. SEXUAL HX HAD SEX IN THE LAST 12 MONTHS (VAGINAL, ORAL, OR ANAL)?NO HAVE YOU EVER HAD AN STD?NO GUARDIAN OF JOVITA'S 3 YOREVIEWED 10-29-18 NLREVIEWED WITH PATIENT 06/26/19 1143 NLJREVIEWED WITH PATIENT 07/26/19 1500 LAS. HOSPITALIZATION/MAJOR DIAGNOSTIC PROCEDURE ARF REQUIRING HD 2 DEHYDRATION/HIGH DOSE (NON-PRESCRIBED) NSAID USE/ACEI/CTD/METFORMIN USE/LABIAL ABSCESS, -BLE DVT US/CXR, BCX2 NG, UCX NG, -KENNY/ANCA/GBM; PEAK CR 7.4 C K 6.8, 24H PROT [id number] 05/25-06/05/19 REVIEW OF SYSTEMS REVIEWED BY: PROVIDER: TIMOTHY BACK . CONSTITUTIONAL: ANY CHANGE IN YOUR MEDICAL CONDITION? YES PT TREATED INPATIENT 05/2019 FOR ACUTE RENAL FAILURE X 10 DAYS, HAD DIALYSIS FOR 5 DAYS. . CHILLS NO . FEVER NO . INFECTION: DO YOU HAVE NEW INFECTIONS? NO . DO YOU HAVE HISTORY OF MRSA? NO . MUSCULOSKELETAL: ANY NEW PATTERNS OF PAIN OR NUMBNESS? NO . GASTROENTEROLOGY: ANY NEW CHANGE IN BOWEL CONTROL? NO . GENITOURINARY: ANY NEW CHANGE IN BLADDER CONTROL? NO . IS THERE A CHANCE YOU COULD BE ? NO . HEMATOLOGY/LYMPH: DO YOU TAKE ANY BLOOD THINNERS? (FOR EXAMPLE- COUMADIN, PLAVIX, AGGRENOX, PLATEL, PRADAXA, OR XARELTO) NO . WHEN WAS YOUR LAST DOSE? DATE: TIME: . NEUROLOGY: HAVE YOU FALLEN IN THE PAST 12 MONTHS? NO . ANY NEW EXTREMITY NUMBNESS OR WEAKNESS? NO . CARDIOLOGY: DO YOU HAVE A PACEMAKER OR DEFIBRILLATOR? NO . RESPIRATORY: HAVE YOU BEEN SICK IN THE PAST WEEK? NO . FEVER NO . FLU LIKE SYMPTOMS? NO . COUGH NO . INTEGUMENTARY: DO YOU HAVE ANY RASHES OR OPEN SORES? NO . ALLERGIC/IMMUNO: ARE YOU ALLERGIC TO IV DYE? NO . ANY NEW ALLERGIES? NO . PSYCHIATRIC: DO YOU HAVE THOUGHTS OF HURTING YOURSELF OR SOMEONE ELSE? NO . ARE YOU ABUSED, NEGLECTED, OR IN AN UNSAFE ENVIRONMENT? NO . ENDOCRINOLOGY: ARE YOU DIABETIC? NO . OTHER: DO YOU NEED ANY PRESCRIPTIONS? YES . IF YES, PLEASE LIST: ____OXYCODONE 325 . ANY NEW PROBLEMS WITH YOUR MEDICATIONS? NO . WHEN DID YOU LAST EAT? ____ . WHEN DID YOU LAST DRINK? ____ . WHAT DID YOU LAST DRINK? ____ . NAME OF PERSON DRIVING YOU HOME? ____ . DO YOU HAVE ANY OTHER QUESTIONS OR CONCERNS NO . VITAL SIGNS WT 362.2 LBS, HT 65 IN, BMI 60.27 INDEX, BP 136/82 MM HG, HR 108 /MIN, RR 20 /MIN, TEMP 98.5 F, OXYGEN SAT % 97%, SAFE IN ENV? (Y/N) YES, NA INITIALS SC 14:36, REVIEWED BY: YA. EXAMINATION GENERAL EXAMINATION: GENERAL AWAKE,ALERT ,PLEAASANT . PSYCH AFFECT NORMAL . LUNGS: LUNG HERRERA ARE CLEAR TO AUSCULTATION BILATERALLY. GOOD MOVEMENT OF AIR . HEART: S1, S2 IN A REGULAR RATE AND RHYTHM. NO SIGNIFICANT MURMURS, RUBS OR GALLOPS NOTED . MUSCULOSKELETAL: WEAK OVER RIGHT LEG . LUMBAR SACRAL SPINE PALPATION: + FOR PAIN OVER L/S SPINE. + FOR PAIN OVER L/S PARASPINALS SPECIFIC POINT TENDERNESS OVER BILAT. L4/5/L5/S1 LUMBAR FACETS WITH FACET LOADING. NEUROLOGIC EXAM: NORMAL SENSATION LIGHT TOUCH BILAT. LOWER EXTREMITIES . ASSESSMENTS PAIN IN LEFT HIP - M25.552 (PRIMARY) PAIN IN RIGHT HIP - M25.551 TREATMENT PAIN IN LEFT HIP REFILL OXYCODONE-ACETAMINOPHEN TABLET, 5-325 MG, 1 TABLET NEEDED, ORALLY, Q6H PRN PAIN MDD4 #100 TAB FOR 30 DAY SUPPLY, 30 DAYS, 100, REFILLS 0 NOTES: ISTOP REGISTRY REVIEWED AND DEMONSTRATES COMPLLIANCE. , [facility] NARCOTIC AGREEMENT WAS REVIEWED AND SIGNED TODAY BY THE PATIENT. SEE ATTACHED DOCUMENT FOR FULL DETAILS; SPECIFIC ISSUES WERE REVIEWED: 1) KEEP PAIN MEDS IN THEIR ORIGINAL BOTTLES AND ANY WEEKLY PLANNERS ARE TO BE BROUGHT TO THE PAIN CENTER AT EVERY VISIT. 2) THE PATIENT IS NOT TO INCREASE DOSING OR TIMING OF THEIR PAIN MEDICATION WITHOUT SPECIFIC DIRECTION OF THEIR PAIN CENTERPROVIDER (NOT ER OR OTHER PROVIDERS). 3) ALL PAIN MEDS ARE TO BE KEPT SECURED, IN A LOCKED BOX. 4) NO PAIN MEDS ARE TO BE SHARED WITH ANY OTHER PERSON FOR ANY REASON. 5) NO PAIN MEDS MAY BE TAKEN FROM ANY FRIENDS OR RELATIVES FOR ANY REASON 6) NO MEDS OR SUBSTANCES WHICH ARE NOT LEGAL ARE TO BE USED- NO MARIJUANA, NO COCAINE, AMPHETAMINES, HEROIN, OR OTHERS ARE EVER TO BE USED. 7)URINE TESTING IS DONE TO ACCOUNT FOR MEDS AND SUBSTANCES BEING TAKEN AND WILL BE DONE RANDOMLY., RISKS AND BENEFITS OF NARCOTIC/OPIOD MEDICATIONS WERE REVIEWED WITH PATIENT - THIS INCLUDES BUT IS NOT LIMITED TO RISK OF DEPENDANCE/DEVELOPMENT OF ADDICTION, MOOD DISTURBANCE AND DEPRESSION, OSTEOPOROSIS, HORMONAL AND LABIDAL CHANGES, RESPIRATORY DEPRESSION AND . PATIENT IS ADVISED NOT TO DRIVE OR DRINK ALCOHOL WHILE ON THESE MEDICATIONS. [facility] CAREUNKNOWN REASON:CHRONIC BILAT HIP PAIN L>R PROCEDURE CODES FA211 ESTABILISHED PATIENT [facility] FACILITY CHARGE DISPOSITION & COMMUNICATION FOLLOW UP 4 WEEKS (REASON: STAR REFERRAL/MED MGMNT) ELECTRONICALLY SIGNED BY NAZANIN VALLES ON 08/13/2019 AT 04:13 PM EDT DISCLAIMER : THIS IS A VISIT SUMMARY EXTRACTED FROM THE [employer] CHART. IT IS NOT A COPY OF THE [employer] PROGRESS NOTE. ОЛЬГА
== END ==
LOC: M PAIN 14:30
PROVIDERS: ATTEND Nurse Practitioner Family
DX: M25.552 Pain in left hip (principal); M25.551 Pain in right hip; G89.29 Other chronic pain; E78.5 Hyperlipidemia, unspecified; J45.30 Mild persistent asthma, uncomplicated; K21.9 Gastro-esophageal reflux disease without esophagitis; M17.0 Bilateral primary osteoarthritis of knee; I10 Essential (primary) hypertension; R73.01 Impaired fasting glucose; G47.33 Obstructive sleep apnea (adult) (pediatric); F17.210 Nicotine dependence, cigarettes, uncomplicated; Z88.1 Allergy status to other antibiotic agents; E66.01 Morbid (severe) obesity due to excess calories; Z68.44 Body mass index [BMI] 60.0-69.9, adult; Z79.899 Other long term (current) drug therapy

== ENCOUNTER → 2019-08-12 | Outpatient (CLI) | payer MEDICARE ==
--- NOTE | 2019-08-27 00:26 | ECWPNPC ---
PATIENT NAME: MORENA PRITCHARD : 1960 GENDER: FEMALE VISIT DATE: 08/12/2019 DISCHARGE DATE: 08/12/19 1423 VISIT LOCKED DATE TIME: PHYSICIAN: TIMOTHY BARBOUR PHYSICIAN PAGER NO: [phone] RESOURCE: TIMOTHY BARBOUR REASON FOR APPOINTMENT 1. MED MGMT PER LB HISTORY OF PRESENT ILLNESS HISTORY OF PRESENT ILLNESS: HERE FOR URGENT VISIT PER MY REQUEST DUE TO CONCERNS OF USE OF OXYCODONE WITH UNTREATED SLEEP APNEA.SHE IS AWARE OF THE RISK TO INCLUDE RESPIRATORY DISTRESS AND .SHE HAS RECENTLY SWITCHED PRIMARY CARE TO [facility] AND WILL COMPLY WITH THEIR RECOMENDATIONS TO EVALUATE AND TREAT SLEEP APNEA.TODAY SHE BRINGS IN HER PRESCRIPTION OF OXYCODONE 5/325 AND THIS IS FORMALLY IDENTIFIED AND COUNTED.SHE IS USING THIS APPRORIATLEY.SHE DENIES HX OF PRESCRIPTION OPIATE ABUSE OR MISUSE IN THE PAST.DENIES ILLICIT DRUG USE HX.SHE HAD A RECENT EPISODE OF ACUTE KIDNEY FAILURE WHICH ACCORDING TO DISCHARGE SUMMARY COULD BE FROM OVERUSE OF NSAIDS DUE TO UNCONTROLLED PAIN IN COMBINATION WITH DEHYDRATION/INFECTION.SHE IS FOLLOWING WITH NEPHROLOGY. PAIN THE PATIENT DESCRIBES THE PAIN... FALL RISK SCREENING: SCREENING :NO FALLS REPORTED IN THE LAST YEAR CURRENT MEDICATIONS TAKING TRIAMTERENE-HCTZ 37.5-25 MG TABLET 1 TABLET IN THE MORNING ORALLY ONCE A DAY TAKING FLEXERIL 10 MG TABLET 1 TABLET ORALLY DAILY NEEDED MDD 1 TAKING AMLODIPINE BESYLATE 5 MG TABLET 1 TABLET ORALLY ONCE A DAY TAKING PRILOSEC 20 MG CAPSULE DELAYED RELEASE 2 CAPSULE ORALLY ONCE A DAY TAKING ALBUTEROL SULFATE HFA 108 (90 BASE) MCG/ACT AEROSOL SOLUTION 2 PUFFS INHALATION FOUR TIMES A DAY NEEDED TAKING ROSUVASTATIN CALCIUM 40 MG TABLET 1 TABLET ORALLY ONCE A DAY TAKING FLUOXETINE HCL 20 MG CAPSULE 1 TABLET IN THE MORNING ORALLY ONCE A DAY TAKING TRAZODONE HCL 50 MG TABLET 1 TABLET ORALLY AT BEDTIME TAKING NYSTATIN DIRECTED POWDER 15 GRAM TOPICALLY TWICE A DAY TO AFFECTED AREA TAKING OXYCODONE-ACETAMINOPHEN 5-325 MG TABLET 1 TABLET NEEDED ORALLY Q6H PRN PAIN MDD4 #100 TAB FOR 30 DAY SUPPLY NOT-TAKING TRIAMTERENE-HCTZ 37.5-25 MG TABLET 1 TABLET IN THE MORNING ORALLY ONCE A DAY NOT-TAKING AMLODIPINE BESYLATE 5 TABLET 1 TABLET ORALLY ONCE A DAY MEDICATION LIST REVIEWED AND RECONCILED WITH THE PATIENT PAST MEDICAL HISTORY 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 MRI L4/5 R HNP C B NF NARROWING CT LS MOD L4-1 DSN, MOD [facility], MILD B NFN HYPERLIPIDEMIA 2B NICOTINE ADDICTION ASTHMA, MILD, PERSISTENT, COLD-INDUCED GERD BILATERAL LOWER EXTREMITY VENOUS INSUFFICIENCY BILATERAL KNEE OSTEOARTHRITIS HYPERTENSION-AUGUST 2006 MIA-[id number] OBESITY IMPAIRED FASTING GLUCOSE L NON-DISPLACED TRIQUETAL FRACTURE S/P MECHANICAL FALL-12/12/2013 TREATED C SPLINT BY DARSHAN CASSIDY ARF 05/2019 PER HOSP GERD B KNEE OA-R>L MODERATE MEDIAL COMPARTMENT NARROWING, SEVERE C STANDING BY 05/2017 XRAY MAUREEN ALLERGIES DOXYCYCLINE HYCLATE: NAUSEA/VOMITING - SIDE EFFECTS SURGICAL HISTORY LEFT BREAST MILK DUCT REMOVED ADENOIDECTOMY FAMILY HISTORY FATHER: ALIVE 80S YRS, NO KNOWN MEDICAL PROBLEMS, DIAGNOSED WITH OTHER MALIGNANT NEOPLASM OF UNSPECIFIED SITE MOTHER: 65 YRS, 2 TO [place], ALCOHOLIC. BREAST CANCER DX AT 64., UNSPECIFIED HEART DISEASE 2 BROTHER(S) - HEALTHY. NO FH DM2. SOCIAL HISTORY GENERAL: TOBACCO USE ARE YOU A:CURRENT SMOKER ARE YOU INTERESTED IN QUITTING?NOT READY TO QUIT COUNSELED THE PATIENT ON SMOKING EFFECTS, EDUCATION FIJOIEWL41/16/2019 HOW MANY CIGARETTES A DAY DO YOU SMOKE?5 OR LESS HOW SOON AFTER YOU WAKE UP DO YOU SMOKE YOUR FIRST CIGARETTE?AFTER 60 MIN HOW OFTEN DO YOU SMOKE CIGARETTES?EVERY DAY PATIENT COUNSELED ON THE DANGERS OF TOBACCO USE AND URGED TO QUIT:07/12/2019 SMOKING CESSATION INFORMATION GIVEN08/12/2019 HIV / HEP-C SCREENING HIV TEST OFFERED TO PATIENT:YES DATE OFFERED:02/12/2018 TEST ACCEPTED:NO HEP-C TEST OFFERED TO PATIENT:YES DATE OFFERED:02/12/2018 REASON:PATIENT DECLINED TEST ACCEPTED:NO REASON:PATIENT DECLINED PT STATES TEST WAS DONE IN PAST BROCHURE PROVIDED TO PATIENTYES OTHERS AT HOME: SPOUSE, FATHER, 3 1/2 YEAR OLD GREAT NEPHEW - PT HAS CUSTODY. DIET: NO RESTRICTIONS. TRIES TO CUT BACK ON SUGAR AND SALT. EATS ONE MEAL DAILY, AT DINNER ONLY.. LANGUAGE LANGUAGES SPOKEN:GEORGIAN DOMESTIC VIOLENCE DO YOU FEEL SAFE IN YOUR ENVIRONMENT?YES BMI CARE GOAL FOLLOW-UP ABOVE NORMAL BMI FOLLOW-UPGIVING ENCOURAGEMENT TO EXERCISE RECREATIONAL DRUG USE DRUG USE?NO EXERCISE: NO REGULAR EXERCISE, WALKS. LEARNING BARRIERS / SPECIAL NEEDS CHANGE FROM LAST VISIT?YES PT HAD FALL AT HOME ON 02/10/18 BARRIERS TO LEARNING?NO HEARING IMPAIRED?NO VISION IMPAIRED?YES COGNITIVELY IMPAIRED?NO :CORRECTIVE LENSES READINESS TO LEARN?YES LEARNING PREFERENCES?NO LEARNING CAPABILITIES PRESENT?YES EMOTIONAL BARRIERS?NO SPECIAL DEVICES?YES :OTHER MOTORIZED W/C FRONT OF HOUSE MANAGER NEEDED?NO PAIN CLINIC PFS, CLERGY, PUBLIC HEALTH REFERRALS HAS THE PATIENT BEEN EDUCATED REGARDING HIS/HER PLAN OF CARE?YES HAS THE PATIENT BEEN EDUCATED REGARDING PAIN, THE RISK FOR PAIN, THE IMPORTANCE OF EFFECTIVE PAIN MANAGEMENT, AND THE PAIN ASSESSMENT PROCESS?YES LATEX QUESTIONNAIRE LATEX ALLERGY : HAVE YOU EVER DEVELOPED ANY TYPE OF REACTION AFTER HANDLING LATEX PRODUCTS SUCH RUBBER GLOVES, CONDOMS, DIAPHRAGMS, BALLOONS, SOCKS, OR UNDERWEAR?NO LATEX ALLERGY : HAVE YOU EVER DEVELOPED ANY TYPE OF REACTION DURING OR AFTER DENTAL APPOINTMENT, VAGINAL/RECTAL EXAMINATION, SURGICAL PROCEDURE, OR ANY OTHER EXPOSURE?NO DATE ASKED : 04/11/2019 LATEX RISK : HAVE YOU EVER HAD ANY DIFFICULTY BREATHING OR HIVES AFTER EATING OR HANDLING ANY FRUITS, OR VEGETABLES; SUCH KIWI, BANANAS, STONE FRUITS, OR CHESTNUTSNO LATEX RISK : DO YOU HAVE A PREVIOUS PERSONAL HISTORY OF MORE THAN NINE SURGERIES, SPINA BIFIDA, OR REPEATED CATHERIZATIONS? NO LATEX RISK : ARE YOU FREQUENTLY EXPOSED TO LATEX PRODUCTS IN YOUR OCCUPATION?NO CAFFEINE NONE. ADVANCE DIRECTIVE ADVANCE DIRECTIVE DISCUSSED WITH PATIENT:YES DECLINED INFORMATION OR ASSISTANCE [employer] [id number] UATSDIN MARITAL STATUS: . ALCOHOL SCREENING DID YOU HAVE A DRINK CONTAINING ALCOHOL IN THE PAST YEAR?YES HOW OFTEN DID YOU HAVE SIX OR MORE DRINKS ON ONE OCCASION IN THE PAST YEAR?LESS THAN MONTHLY (1 POINT) HOW MANY DRINKS DID YOU HAVE ON A TYPICAL DAY WHEN YOU WERE DRINKING IN THE PAST YEAR?5 OR 6 (2 POINTS) HOW OFTEN DID YOU HAVE A DRINK CONTAINING ALCOHOL IN THE PAST YEAR?MONTHLY OR LESS (1 POINT) POINTS4 INTERPRETATIONPOSITIVE OCCUPATION: DISABLED. SEXUAL HX HAD SEX IN THE LAST 12 MONTHS (VAGINAL, ORAL, OR ANAL)?NO HAVE YOU EVER HAD AN STD?NO GUARDIAN OF [facility] 3 YOREVIEWED 10-29-18 NLREVIEWED WITH PATIENT 06/26/19 1143 NLJREVIEWED WITH PATIENT 07/26/19 1500 LASREVIEWED WITH PT 08/12/19 1344 NLJ. HOSPITALIZATION/MAJOR DIAGNOSTIC PROCEDURE ARF REQUIRING HD 2 DEHYDRATION/HIGH DOSE (NON-PRESCRIBED) NSAID USE/ACEI/CTD/METFORMIN USE/LABIAL ABSCESS, -BLE DVT US/CXR, BCX2 NG, UCX NG, -KENNY/ANCA/GBM; PEAK CR 7.4 C K 6.8, 24H PROT 2497 05/25-06/05/19 REVIEW OF SYSTEMS REVIEWED BY: PROVIDER: TIMOTHY BACK . CONSTITUTIONAL: ANY CHANGE IN YOUR MEDICAL CONDITION? NO . CHILLS NO . FEVER NO . INFECTION: DO YOU HAVE NEW INFECTIONS? NO . DO YOU HAVE HISTORY OF MRSA? NO . MUSCULOSKELETAL: ANY NEW PATTERNS OF PAIN OR NUMBNESS? NO- STATES PERCOET TAKES THE EDGE OFF . GASTROENTEROLOGY: ANY NEW CHANGE IN BOWEL CONTROL? NO . GENITOURINARY: ANY NEW CHANGE IN BLADDER CONTROL? NO . IS THERE A CHANCE YOU COULD BE ? NO . HEMATOLOGY/LYMPH: DO YOU TAKE ANY BLOOD THINNERS? (FOR EXAMPLE- COUMADIN, PLAVIX, AGGRENOX, PLATEL, PRADAXA, OR XARELTO) NO . WHEN WAS YOUR LAST DOSE? DATE: TIME: . NEUROLOGY: HAVE YOU FALLEN IN THE PAST 12 MONTHS? YES- PREVIOUSLY DOCUMENTED . ANY NEW EXTREMITY NUMBNESS OR WEAKNESS? NO . CARDIOLOGY: DO YOU HAVE A PACEMAKER OR DEFIBRILLATOR? NO . RESPIRATORY: HAVE YOU BEEN SICK IN THE PAST WEEK? YES- STATES SHE HAS A COLD . FEVER NO . FLU LIKE SYMPTOMS? NO . COUGH NO . INTEGUMENTARY: DO YOU HAVE ANY RASHES OR OPEN SORES? NO . ALLERGIC/IMMUNO: ARE YOU ALLERGIC TO IV DYE? NO . ANY NEW ALLERGIES? NO . PSYCHIATRIC: DO YOU HAVE THOUGHTS OF HURTING YOURSELF OR SOMEONE ELSE? NO . ARE YOU ABUSED, NEGLECTED, OR IN AN UNSAFE ENVIRONMENT? NO . ENDOCRINOLOGY: ARE YOU DIABETIC? NO . OTHER: DO YOU NEED ANY PRESCRIPTIONS? NO . IF YES, PLEASE LIST: ____ . ANY NEW PROBLEMS WITH YOUR MEDICATIONS? NO . WHEN DID YOU LAST EAT? ____ . WHEN DID YOU LAST DRINK? ____ . WHAT DID YOU LAST DRINK? ____ . NAME OF PERSON DRIVING YOU HOME? ____ . DO YOU HAVE ANY OTHER QUESTIONS OR CONCERNS NO- STATES SHE PALNS ON GETTING THE FLU SHOT AFTER SHE IS OVER COLD . VITAL SIGNS WT 362.2 LBS, HT 65 IN, BMI 60.27 INDEX, BP 126/96 MM HG, HR 91 /MIN, RR 18 /MIN, TEMP 98.2 F, OXYGEN SAT % 97%, SAFE IN ENV? (Y/N) YES, NA INITIALS AW 1346, REVIEWED BY: SEVEROPT STATES SHE IS USING DAVIN SELTZER PLUS COLD AND IT MAY HAVE RAISED HER BP 08/12/19 NLJ. EXAMINATION GENERAL EXAMINATION: GENERALAWAKE,ALERT ,PLEAASANT . PSYCHAFFECT NORMAL . LUNGS:LUNG HERRERA ARE CLEAR TO AUSCULTATION BILATERALLY. GOOD MOVEMENT OF AIR . HEART:S1, S2 IN A REGULAR RATE AND RHYTHM. NO SIGNIFICANT MURMURS, RUBS OR GALLOPS NOTED . ASSESSMENTS PAIN IN LEFT HIP - M25.552 (PRIMARY) TREATMENT PAIN IN LEFT HIP CONTINUE OXYCODONE-ACETAMINOPHEN TABLET, 5-325 MG, 1 TABLET NEEDED, ORALLY, Q6H PRN PAIN MDD4 #100 TAB FOR 30 DAY SUPPLY NOTES: ISTOP REGISTRY REVIEWED AND DEMONSTRATES COMPLLIANCE. (REF # ) BRINGS IN MEDICATIONS WHICH IS APPROPRIATE FOR WHAT WAS DISPENSED. RECENT URINE TOXICOLOGY REVIEWED. NO UNAUTHORIZED MEDICATIONS. NO ILLICIT SUBSTANCES AND PRESCRIBED MEDICATIONS WERE PRESENT. , RISKS AND BENEFITS OF NARCOTIC/OPIOD MEDICATIONS WERE REVIEWED WITH PATIENT - THIS INCLUDES BUT IS NOT LIMITED TO RISK OF DEPENDANCE/DEVELOPMENT OF ADDICTION, MOOD DISTURBANCE AND DEPRESSION, OSTEOPOROSIS, HORMONAL AND LABIDAL CHANGES, RESPIRATORY DEPRESSION AND . PATIENT IS ADVISED NOT TO DRIVE OR DRINK ALCOHOL WHILE ON THESE MEDICATIONS. REFERRAL TO:[facility] REASON:CHRONIC LEFT HIP PAIN PROCEDURE CODES FA211 ESTABILISHED PATIENT [facility] CHARGE DISPOSITION & COMMUNICATION FOLLOW UP NO F/U (REASON: REFER TO CREST[facility]) ELECTRONICALLY SIGNED BY NAZANIN VALLES ON 08/26/2019 AT 04:11 PM EDT DISCLAIMER : THIS IS A VISIT SUMMARY EXTRACTED FROM THE [employer] CHART. IT IS NOT A COPY OF THE [employer] PROGRESS NOTE. ОЛЬГА
== END ==
LOC: M PAIN 14:00
PROVIDERS: ATTEND Nurse Practitioner Family
DX: M25.552 Pain in left hip (principal); E78.5 Hyperlipidemia, unspecified; J45.30 Mild persistent asthma, uncomplicated; K21.9 Gastro-esophageal reflux disease without esophagitis; I10 Essential (primary) hypertension; R73.01 Impaired fasting glucose; G47.33 Obstructive sleep apnea (adult) (pediatric); F17.210 Nicotine dependence, cigarettes, uncomplicated; Z88.1 Allergy status to other antibiotic agents; E66.01 Morbid (severe) obesity due to excess calories; Z68.44 Body mass index [BMI] 60.0-69.9, adult; Z79.899 Other long term (current) drug therapy

== ENCOUNTER → 2019-09-30 | Outpatient (CLI) | payer MEDICARE ==
[2019-09-30 17:01] LABS: TOTAL 25(OH) VITAMIN D 23.2 NG/ML (30.0-100.0); VITAMIN B12 LEVEL > 2000 PG/ML (247-911)
== END ==
LOC: M WUC 13:59
PROVIDERS: ATTEND Family Medicine
DX: E53.8 Deficiency of other specified B group vitamins (principal); E55.9 Vitamin D deficiency, unspecified; Z79.899 Other long term (current) drug therapy

== ENCOUNTER → 2019-10-03 | Outpatient (REF) | payer MEDICARE ==
[2019-10-04 12:45] LABS: BASO # 0.1 10^3/uL (0.0-0.2); BASO % 0.6 % (0.0-1.0); EOS # 0.3 10^3/uL (0.0-0.5); EOS % 2.8 % (0.0-3.0); HEMATOCRIT 44.3 % (36.0-47.0); HEMOGLOBIN 13.4 g/dl (12.0-15.5); LYMPH # 4.3 10^3/uL (1.5-5.0); LYMPH % 46.5 % (24.0-44.0); MEAN CORPUSCULAR HEMOGLOBIN 27.5 pg (27.0-33.0); MEAN CORPUSCULAR HGB CONC 30.2 g/dl (32.0-36.5); MEAN CORPUSCULAR VOLUME 90.8 fl (80.0-96.0); MONO # 0.7 10^3/uL (0.0-0.8); MONO % 7.9 % (0.0-5.0); NEUTROPHILS # 3.9 10^3/uL (1.5-8.5); NEUTROPHILS % 41.7 % (36.0-66.0); PLATELET COUNT, AUTOMATED 348 10^3/uL (150-450); RED BLOOD COUNT 4.88 10^6/uL (4.00-5.40); WHITE BLOOD COUNT 9.3 10^3/uL (4.0-10.0)
[2019-10-04 13:08] LABS: C REACTIVE PROTEIN QUANTITATIV 0.89 MG/DL (0.00-0.30); RHEUMATOID FACTOR QUANT < 10.0 IU/ML (<15.0)
[2019-10-04 14:02] LABS: ERYTHROCYTE SEDIMENTATION RATE 51 mm/hr (0-30)
[2019-10-08 00:06] LABS: ANA (HEP2) Negative (.); CYCLIC CITRULLINATED PEPTIDE 9 units (0-19)
== END ==
LOC: M SFHCCLAY 14:05
PROVIDERS: ATTEND Family Medicine
DX: M25.50 Pain in unspecified joint (principal)

== ENCOUNTER → 2019-10-03 | Outpatient (CLI) | payer MEDICARE ==
--- NOTE | 2019-10-03 14:49 | REP ---
Left hand four views: There is mild osteoarthritis at the thumb MCP and thumb CMC articulations. Mineralization and joint spaces are otherwise unremarkable. There is no fracture or dislocation. Impression: Thumb osteoarthritis as described. Right hand four views: Mineralization and joint spaces are normal. There is no fracture or dislocation. No calcifications or foreign bodies. Impression: Negative right hand. Electronically Signed by Ashwin Keller MD 10/03/2019 02:41 P
== END ==
LOC: M CLY 14:15
PROVIDERS: ATTEND Family Medicine
DX: M19.042 Primary osteoarthritis, left hand (principal); M25.50 Pain in unspecified joint; M79.641 Pain in right hand; M79.642 Pain in left hand
CPT/HCPCS: 73130; 85025; 85652; 86038; 86140; 86200; 86431; G0463

== ENCOUNTER → 2020-06-04 | Outpatient (CLI) | payer MEDICARE ==
[~2020-06-04] MED LIST changes: +AMLO1TAB24 PO; -AMLO5TAB6 PO; +CYCL-707 PO; -CYCL10TA PO; -FLUO20CA19 OR; +FLUO20CA20 PO; +FLUO20CA22 OR; -FLUO20CA8 PO; -TRAZ-163 PO; +TRAZ-257 PO
[2020-06-04 17:20] LABS: CHOLESTEROL RISK RATIO 4.085 (<5)
== END ==
LOC: M WUC 13:28
PROVIDERS: ATTEND Family Medicine
DX: R73.01 Impaired fasting glucose (principal); E78.5 Hyperlipidemia, unspecified

== ENCOUNTER → 2021-07-16 | Outpatient (REF) | payer MEDICARE ==
[~2021-07-16] MED LIST changes: -LISI-538 PO; +LISI20TA33 PO
== END ==
LOC: M LAB REF 17:16
PROVIDERS: ATTEND Nurse Practitioner Family
DX: E83.42 Hypomagnesemia (principal)

== ENCOUNTER → 2021-08-30 | Outpatient (CLI) | payer MEDICARE ==
--- NOTE | 2021-08-30 16:38 | REPMRS ---
Patient History The patient states she has not had a clinical breast exam in over a year. Family history of breast cancer at age 65 in mother, colorectal cancer at age 50 or over in maternal grandmother. Benign excisional biopsy of the left breast, October 28, 1998. Patient states no breast complaints today. Patient has signed MRS History Sheet. Digital Woman Screen Mammo: August 30, 2021 - Exam #: [id number] Bilateral CC and MLO view(s) were taken. Technologist: Agnieszka Reese, Technologist Prior study comparison: May 18, 2018, bilateral digital woman screen mammo performed at [facility]. May 17, 2017, digital woman screen mammo performed at [facility]. FINDINGS: There are scattered fibroglandular densities. The Volpara volumetric breast density category is:B. There is a 1 cm area of possible spiculation or architectural distortion in the lateral aspect of the right breast. this is seen on the craniocaudal view. Less confidently on the MLO projection. This merits further evaluation. There is a single dilated duct containing is secretory type calcifications in the left breast unchanged There has been no other change in the appearance of the mammogram from the prior studies. There is a mild amount of scattered fibroglandular density which is fairly symmetric. There is no other interval development of dominant mass, architectural distortion, or grouped microcalcification suggestive of malignancy. 3-D tomosynthesis shows no additional findings. Assessment: BI-RADS/ACR category 0 mammogram, Incomplete: Need additional imaging evaluation and/or prior mammograms for comparison. Recommendation Ultrasound and special view mammogram of the right breast. This patient's [facility] Lifetime Breast Cancer Risk is estimated at 18.9 %. This mammogram was interpreted with the aid of an FDA-approved computer-aided dectection system. Electronically Signed By: Josias Hills MD 08/30/21 [id number]
== END ==
LOC: M WHC 15:27
PROVIDERS: ATTEND Family Medicine
DX: N92.2 Excessive menstruation at puberty (principal)

== ENCOUNTER → 2021-10-08 | Outpatient (CLI) | payer MEDICARE ==
--- NOTE | 2021-10-08 15:32 | REP ---
INDICATION: RIGHT BREAST ADD VIEWS. COMPARISON: 08/30/2021 as well as other prior exams. TECHNIQUE: Multiple spot compression tomographic sequences are obtained of the right breast. Focused right breast ultrasound is performed. FINDINGS: There is an area of architectural distortion laterally and somewhat inferiorly in the right breast. There are multiple punctate calcifications in this region. Focused right breast ultrasound performed inferolaterally in the right breast fails to reveal a discrete mass. A few dilated ducts are seen. IMPRESSION: BIRADS/ACR category 4, suspicious. There is an area of architectural distortion and tiny calcifications in the inferolateral right breast. This is only seen mammographically. Recommend stereotactic biopsy. This mammogram was interpreted with the aid of an FDA-approved computer-aided detection system. The patient letter being requested is M4. RECOMMENDATION: Recommend stereotactic biopsy right breast as discussed in detail above. <Electronically signed by Ashwin Chapin > 10/08/21 152
== END ==
LOC: M WHC 12:53
PROVIDERS: ATTEND Family Medicine
DX: R92.2 Inconclusive mammogram (principal)
CPT/HCPCS: 76642; 77065; G0279

== ENCOUNTER → 2021-11-11 | Outpatient (CLI) | payer MEDICARE ==
[~2021-11-11] MED LIST changes: +**SFHN** SODIUM BICARBONATE 8.4% 10MEQ 10ML VIAL ONE; +ASPI-1 PO; +GABA-282 PO; +LIDOCAINE 1% MDV 20ML VIAL ONE
[2021-11-11 15:40] VITALS: BP 128/84
--- NOTE | 2021-11-11 17:57 | REP ---
INDICATION: R BREAST UPRIGHT STEREO BX AT LAT/INF W/CLIP AND POST MAMMO. COMPARISON: Right diagnostic mammogram, 10/08/2021. Stereotactic biopsy location images, 11/11/2021. TECHNIQUE: A single spot compression true lateral view of the right breast was obtained status post stereotactic biopsy. FINDINGS: The biopsy clip is in proper position in the area of architectural distortion and suspicious calcifications. IMPRESSION: Clip is in the area of interest status post stereotactic biopsy. RECOMMENDATION: Follow-up as clinically warranted. <Electronically signed by Hong Griggs > 11/11/21 [id number]
--- NOTE | 2021-11-11 17:57 | REP ---
INDICATION: R BREAST UPRIGHT STEREO BX AT LAT/INF W/CLIP AND POST MAMMO. COMPARISON: None. TECHNIQUE: This procedure is performed by BRANDT Corbett, under the direct supervision of Dr. Griggs. The risks and benefits of the procedure were explained to the patient and informed consent was obtained both verbally and written. Directly prior to the start of the procedure, a formal timeout was done in the procedure room. The mediolateral approach was utilized on the prone table. The right breast spiculated mass was localized using mammographic guidance. The skin was prepped and draped in a sterile fashion. Ten ml of buffered lidocaine 1% lidocaine 10 mg/ml was used as a local anesthetic. FINDINGS: A mammotome biopsy device was inserted and advanced into the breast lesion and 6 core biopsy samples were obtained. A shape 1 marker clip was placed at the biopsy site. The patient tolerated the procedure well and there were no immediate complications. After the appropriate amount of monitored convalescence the patient was discharged from the department. IMPRESSION: Technically successful right breast stereotactic biopsy <Electronically signed by Marli Corona > 11/11/21 0379 <Electronically signed by Hong Griggs > 11/11/21 [id number]
== END ==
LOC: M WHCPRO 13:44
PROVIDERS: ATTEND Surgery
DX: D05.11 Intraductal carcinoma in situ of right breast (principal)

== ENCOUNTER → 2021-12-24 | Outpatient (CLI) | payer MEDICARE ==
[~2021-12-24] MED LIST changes: -**SFHN** SODIUM BICARBONATE 8.4% 10MEQ 10ML VIAL ONE; +FLUO-96 PO; -FLUO20CA20 PO; +FLUO40CA PO; -LEVO250T12 PO; +LEVO250T3 PO; -LIDOCAINE 1% MDV 20ML VIAL ONE; +NATU1TAB5 PO; +OMEP-173 PO; -OMEP-218 PO; +OMEP40CA4 PO; +OXYC10TA12 PO; +TRIA37.5 PO; +[UNRECOGNIZED DRUG - CODE] SL
== END ==
LOC: M LABSMTC 12:43
PROVIDERS: ATTEND Anesthesiology
DX: Z01.818 Encounter for other preprocedural examination (principal); Z11.52 Encounter for screening for COVID-19

== ENCOUNTER → 2021-12-30 | Outpatient (CLI) | payer MEDICARE | LOC: M SLEEP 20:00 | PROVIDERS: ATTEND Physician Assistant | DX: G47.33 Obstructive sleep apnea (adult) (pediatric) (principal) ==

== ENCOUNTER → 2022-01-13 | Outpatient (CLI) | payer MEDICARE | LOC: M LABSMTC 11:36 | PROVIDERS: ATTEND Anesthesiology | DX: Z01.818 Encounter for other preprocedural examination (principal); Z11.52 Encounter for screening for COVID-19 ==

== ENCOUNTER 2022-01-18 08:09 | Observation (INO) | payer MEDICARE ==
[~2022-01-18] VITALS: Ht 165.1 cm; Wt 173.4 kg
[~2022-01-18 08:09] MED LIST changes: +HEPARIN SOD (PORCINE) 5000UNITS/ML 1ML VIAL/SYRINGE SQ ONE; +LIDOCAINE 1% MDV 20ML VIAL SQ PRN; +LR 1,000 ML IV ONE; +OMEP1CAP73 PO; +ceFAZolin SOD 1 GM in D5W MINI-BAG PLUS 50 ML IV ONE; +ceFAZolin SOD 2 GM in IV 1 EA IV ONE
[2022-01-18] MEDS ORDERED: MIDAZOLAM INJ 2MG/2ML VIAL (J2250 PER 1MG) As Ordered ONE (10:16)
[2022-01-18] MEDS ORDERED: fentaNYL 100 MCG/2 ML INJECTION As Ordered ONE ×3 (10:16→15:36)
[2022-01-18] MEDS ORDERED: propofoL 200 MG/20 ML VIAL As Ordered ONE ×2 (10:18→12:26)
[2022-01-18] MEDS ORDERED: ROCURONIUM BROMIDE 50 MG/5 ML VIAL As Ordered ONE ×2 (10:19→13:45)
[2022-01-18] MEDS ORDERED: SUCCINYLCHOLINE 100 MG/5 ML SYRINGE (J0330) As Ordered ONE (10:20)
[2022-01-18] MEDS ORDERED: LIDOCAINE 2% 100MG/5ML SDV (FOR ANES.) As Ordered ONE (10:20)
[2022-01-18] MEDS ORDERED: BUPIVACAINE HCL 0.25% 30ML VIAL As Ordered ONE (11:24)
[2022-01-18] MEDS ORDERED: LIDOCAINE 1% SDV 30ML VIAL As Ordered ONE (11:24)
[2022-01-18] MEDS ORDERED: SUGAMMADEX SODIUM 500 MG/5 ML VIAL (BRIDION) As Ordered ONE (12:32)
[2022-01-18] MEDS ORDERED: dexameTHASONE 4 MG/ML 1ML VIAL (J1100 PER 1MG) As Ordered ONE (12:41)
[2022-01-18] MEDS ORDERED: ESMOLOL INJ 100MG/10ML VIAL As Ordered ONE (12:49)
[2022-01-18] MEDS ORDERED: ACETAMINOPHEN 1000MG 100ML IV BTL (OFIRMEV) (J0131 PER 10MG) As Ordered ONE (12:51)
[2022-01-18] MEDS ORDERED: ONDANSETRON 4MG/2ML VIAL As Ordered ONE (14:28)
[2022-01-18] MEDS: fentaNYL 100 MCG/2 ML INJECTION IV PRN ×2 (15:36→15:41)
[2022-01-18] MEDS ORDERED: HYDROMORPHONE HCL 0.5 MG/ 0.5 ML SYRINGE (J1170 PER 1) IV PRN (15:40)
[2022-01-18] MEDS ORDERED: METOCLOPRAMIDE INJ 10MG/2ML VIAL (J2765 PER 1) IV PRN (15:40)
[2022-01-18] MEDS ORDERED: oxyCODONE 5MG TAB PO PRN (15:40)
[2022-01-18] MEDS ORDERED: ONDANSETRON 4MG/2ML VIAL IV PRN ×2 (15:40→16:00)
[2022-01-18] MEDS ORDERED: LR 1,000 ML IV SCH (15:40)
[2022-01-18] MEDS ORDERED: MORPHINE 2 MG/ML 1ML VIAL (J2270) IV PRN (16:00)
[2022-01-18] MEDS ORDERED: NS 1,000 ML IV SCH (16:00)
[2022-01-18] MEDS ORDERED: MOM 30ML SUSPENSION UDC PO PRN (16:05)
[2022-01-18] MEDS ORDERED: DEXTROSE 50% 50 ML SYRINGE IV PRN (16:05)
[2022-01-18] MEDS ORDERED: MAALOX 30 ML SUSP *UDC PO PRN (16:05)
[2022-01-18] MEDS ORDERED: GLUCAGON INJ 1MG VIAL SC PRN (16:05)
[2022-01-18] MEDS ORDERED: GLUCOSE 4GM CHEW TABLET PO PRN (16:05)
[2022-01-18] MEDS ORDERED: ACETAMINOPHEN TAB 650MG DOSE (2X325MG) PO PRN (16:05)
[2022-01-18] MEDS ORDERED: FLUO40CA PO (16:13)
[2022-01-18] MEDS ORDERED: HOME MED LIST COMPLETE! XX SCH (16:15)
[2022-01-18] MEDS ORDERED: CYCLOBENZAPRINE 10MG TABLET PO PRN (16:25)
[2022-01-18 17:07] LABS: BASO % 0.5 % (0.0-1.0); EOS % 0.4 % (0.0-3.0); HEMATOCRIT 47.1 % (36.0-47.0); HEMOGLOBIN 15.1 g/dl (12.0-15.5); LYMPH % 12.6 % (24.0-44.0); MEAN CORPUSCULAR HEMOGLOBIN 28.9 pg (27.0-33.0); MEAN CORPUSCULAR HGB CONC 32.1 g/dl (32.0-36.5); MEAN CORPUSCULAR VOLUME 90.2 fl (80.0-96.0); MONO # 0.1 10^3/uL (0.0-0.8); MONO % 1.9 % (2.0-8.0); NEUTROPHILS # 6.3 10^3/uL (1.5-8.5); NEUTROPHILS % 83.8 % (36.0-66.0); PLATELET COUNT, AUTOMATED 251 10^3/uL (150-450); RED BLOOD COUNT 5.22 10^6/uL (4.00-5.40); WHITE BLOOD COUNT 7.5 10^3/uL (4.0-10.0)
[2022-01-18 17:28] LABS: ALBUMIN 3.4 GM/DL (3.2-5.2); BILIRUBIN,TOTAL 0.2 MG/DL (0.2-1.0); CALCIUM LEVEL 8.9 MG/DL (8.8-10.2); CREATININE FOR GFR 1.28 MG/DL (0.55-1.30); GLOMERULAR FILTRATION RATE 44.8 (>45); MAGNESIUM LEVEL 2.1 MG/DL (1.8-2.4); POTASSIUM SERUM 4.2 MEQ/L (3.5-5.1); TOTAL PROTEIN 7.3 GM/DL (6.4-8.2)
[2022-01-18] MEDS: HumaLOG INSULIN (NovoLOG) PER UNIT SC SCH (17:30)
[2022-01-18 17:48] VITALS: BP 153/108
[2022-01-18 18:28] VITALS: BP 141/95
[2022-01-18 20:00] VITALS: BP 132/73
[2022-01-18] MEDS ORDERED: ceFAZolin SOD 3 GM in IV 1 EA IV SCH (20:00)
[2022-01-18] MEDS: ceFAZolin SOD 2 GM in IV 1 EA IV SCH (20:30)
[2022-01-18] MEDS: ceFAZolin SOD 1 GM in D5W MINI-BAG PLUS 50 ML IV SCH (21:00)
[2022-01-18] MEDS ORDERED: ROSUVASTATIN 10 MG TAB (CRESTOR) PO SCH (21:00)
[2022-01-18] MEDS: GABAPENTIN 100 MG CAP PO SCH (21:00)
[2022-01-18] MEDS: DOCUSATE SODIUM 100MG CAPSULE PO SCH (21:00)
[2022-01-18] MEDS ORDERED: HumaLOG INSULIN (NovoLOG) PER UNIT SC SCH (21:00)
[2022-01-18] MEDS: HEPARIN SOD (PORCINE) 5000UNITS/ML 1ML VIAL/SYRINGE SQ SCH (21:01)
[2022-01-19] VITALS: BP 128/73
[2022-01-19] MEDS: oxyCODONE 5MG TAB PO PRN ×2 (03:06→08:11)
[2022-01-19] MEDS: ceFAZolin SOD 1 GM in D5W MINI-BAG PLUS 50 ML IV SCH ×2 (03:58→11:43)
[2022-01-19] MEDS: ceFAZolin SOD 2 GM in IV 1 EA IV SCH ×2 (03:58→11:43)
[2022-01-19 04:52] LABS: BASO % 0.2 % (0.0-1.0); HEMATOCRIT 43.7 % (36.0-47.0); HEMOGLOBIN 14.1 g/dl (12.0-15.5); LYMPH # 2.1 10^3/uL (1.5-5.0); LYMPH % 16.4 % (24.0-44.0); MEAN CORPUSCULAR HGB CONC 32.3 g/dl (32.0-36.5); MEAN CORPUSCULAR VOLUME 89.7 fl (80.0-96.0); MONO # 0.6 10^3/uL (0.0-0.8); MONO % 4.9 % (2.0-8.0); NEUTROPHILS # 10.1 10^3/uL (1.5-8.5); NEUTROPHILS % 78.1 % (36.0-66.0); PLATELET COUNT, AUTOMATED 257 10^3/uL (150-450); RED BLOOD COUNT 4.87 10^6/uL (4.00-5.40)
[2022-01-19 05:16] LABS: CREATININE FOR GFR 1.27 MG/DL (0.55-1.30); GLOMERULAR FILTRATION RATE 45.2 (>45); MAGNESIUM LEVEL 2.2 MG/DL (1.8-2.4); POTASSIUM SERUM 4.1 MEQ/L (3.5-5.1)
[2022-01-19] MEDS: HEPARIN SOD (PORCINE) 5000UNITS/ML 1ML VIAL/SYRINGE SQ SCH (06:07)
[2022-01-19 07:09] VITALS: BP 149/70
[2022-01-19] MEDS: HumaLOG INSULIN (NovoLOG) PER UNIT SC SCH ×2 (07:30→11:33)
[2022-01-19] MEDS: GABAPENTIN 100 MG CAP PO SCH (08:05)
[2022-01-19] MEDS: DOCUSATE SODIUM 100MG CAPSULE PO SCH (08:06)
[2022-01-19] MEDS ORDERED: OXYC-517 PO (08:58)
[2022-01-19] MEDS ORDERED: DYAZIDE 37.5/25 CAP (TRIAM/HCTZ) PO SCH (09:00)
[2022-01-19] MEDS ORDERED: FLUoxetine 20 MG CAP PO SCH (09:00)
[2022-01-19] MEDS ORDERED: OMEPRAZOLE 20MG CAP PO SCH (09:00)
[2022-01-19] MEDS ORDERED: ASPIRIN 325 MG TAB PO SCH (09:00)
== END 2022-01-19 14:28 | disposition home health service (06) ==
LOC: M SDC 08:09 → M PCU 08:10 → M SDC 01-19 14:28
PROVIDERS: ADMIT Internal Medicine; ATTEND Internal Medicine
DX: C50.911 Malignant neoplasm of unspecified site of right female breast (principal); I73.9 Peripheral vascular disease, unspecified; E66.01 Morbid (severe) obesity due to excess calories; E78.5 Hyperlipidemia, unspecified; I12.9 Hypertensive chronic kidney disease with stage 1 through stage 4 chronic kidney disease, or unspecified chronic kidney disease; R73.09 Other abnormal glucose; N18.30 Chronic kidney disease, stage 3 unspecified; K21.9 Gastro-esophageal reflux disease without esophagitis; F17.218 Nicotine dependence, cigarettes, with other nicotine-induced disorders; G47.33 Obstructive sleep apnea (adult) (pediatric); F32.9 Major depressive disorder, single episode, unspecified; Z79.82 Long term (current) use of aspirin; Z79.899 Other long term (current) drug therapy; Z88.1 Allergy status to other antibiotic agents; J45.909 Unspecified asthma, uncomplicated
CPT/HCPCS: 19125; 36415; 38525; 71045; 76942; 78195; 80048; 80053; 83735; 83880; 84132; 85025; 86850; 86900; 86901; 88305; 88307; 96365; 96366; 96372; G0378; J0131; J0330; J0690; J1100; J1644; J2250; J2405; J3010

== ENCOUNTER → 2022-02-08 | Outpatient (CLI) | payer MEDICARE ==
[~2022-02-08] MED LIST changes: -HEPARIN SOD (PORCINE) 5000UNITS/ML 1ML VIAL/SYRINGE SQ ONE; -LIDOCAINE 1% MDV 20ML VIAL SQ PRN; -LR 1,000 ML IV ONE; +OXYC-517 PO; -ceFAZolin SOD 1 GM in D5W MINI-BAG PLUS 50 ML IV ONE; -ceFAZolin SOD 2 GM in IV 1 EA IV ONE
== END ==
LOC: M ONCR 12:53
PROVIDERS: ATTEND General Practice
DX: C50.911 Malignant neoplasm of unspecified site of right female breast (principal); Z79.82 Long term (current) use of aspirin; Z79.899 Other long term (current) drug therapy; Z88.1 Allergy status to other antibiotic agents

== ENCOUNTER 2022-02-16 13:55 | Outpatient (RCR) | payer MEDICARE | END 2022-02-24 | PROVIDERS: ATTEND General Practice | DX: C50.111 Malignant neoplasm of central portion of right female breast (principal) ==

== ENCOUNTER 2022-03-04 11:00 | Outpatient (RCR) | payer MEDICARE ==
[~2022-03-04 11:00] MED LIST changes: +LETR2.5T2 PO
[2022-03-07] MEDS ORDERED: LETR2.5T2 PO (11:49)
== END 2022-03-26 ==
LOC: M ONCR 11:00
PROVIDERS: ATTEND General Practice
DX: C50.111 Malignant neoplasm of central portion of right female breast (principal)

== ENCOUNTER → 2022-06-30 | Outpatient (REF) | payer MEDICARE ==
[~2022-06-30] MED LIST changes: +LEVO1TAB38 PO; -LEVO250T3 PO; -TRIA37.53 PO; +TRIA37.577 PO
== END ==
LOC: M SFHCCLAY 13:52
PROVIDERS: ATTEND Nurse Practitioner Family
DX: R30.0 Dysuria (principal)

== ENCOUNTER → 2022-09-19 | Outpatient (CLI) | payer MEDICARE ==
[~2022-09-19] MED LIST changes: +BENZ200C70 PO; +MUCI600T31 PO
== END ==
LOC: M WHC 14:35
PROVIDERS: ATTEND Nurse Practitioner Women's Health
DX: Z12.31 Encounter for screening mammogram for malignant neoplasm of breast (principal); Z85.3 Personal history of malignant neoplasm of breast
CPT/HCPCS: 77066; G0279

== ENCOUNTER → 2022-12-13 | Outpatient (REF) | payer MEDICARE ==
[2022-12-13 18:53] LABS: ALBUMIN 3.4 G/DL (3.2-5.2); BILIRUBIN,TOTAL 0.2 MG/DL (0.3-1.2); CALCIUM LEVEL 9.1 MG/DL (8.3-10.6); CHOLESTEROL RISK RATIO 3.56 (<5); CREATININE FOR GFR 1.05 MG/DL (0.55-1.30); GLOMERULAR FILTRATION RATE 56.2 (>45); HDL CHOLESTEROL 48.3 MG/DL (>40); LDL CHOLESTEROL 76.5 MG/DL (<100); POTASSIUM SERUM 4.7 MMOL/L (3.5-5.1); TOTAL PROTEIN 6.6 G/DL (5.7-8.2)
[2022-12-13 19:17] LABS: HEMOGLOBIN A1c 5.5 % (4.0-6.0)
== END ==
LOC: M SFHCCLAY 14:22
PROVIDERS: ATTEND Nurse Practitioner Family
DX: R73.03 Prediabetes (principal); N18.32 Chronic kidney disease, stage 3b; E78.1 Pure hyperglyceridemia

== ENCOUNTER → 2022-12-16 | Outpatient (REF) | payer MEDICARE | LOC: M PLALAB 13:34 | PROVIDERS: ATTEND Nurse Practitioner Family | DX: L72.3 Sebaceous cyst (principal) ==

== ENCOUNTER → 2023-03-14 | Outpatient (CLI) | payer OTHER | LOC: M RAD 13:42 | PROVIDERS: ATTEND Nurse Practitioner Family | DX: F17.200 Nicotine dependence, unspecified, uncomplicated (principal) ==

== ENCOUNTER → 2023-06-13 | Outpatient (REF) | payer OTHER ==
[2023-06-13 21:25] LABS: GC DNA AMPLIFICATION NEGATIVE (NEGATIVE)
== END ==
LOC: M SFHCCLAY 14:02
PROVIDERS: ATTEND Nurse Practitioner Family
DX: N89.8 Other specified noninflammatory disorders of vagina (principal)

== ENCOUNTER → 2023-09-19 | Outpatient (CLI) | payer OTHER, MEDICARE | LOC: M WHC 13:28 | PROVIDERS: ATTEND Nurse Practitioner Women's Health | DX: Z12.31 Encounter for screening mammogram for malignant neoplasm of breast (principal); C50.911 Malignant neoplasm of unspecified site of right female breast; N60.91 Unspecified benign mammary dysplasia of right breast | CPT/HCPCS: 77066; G0279 ==

== ENCOUNTER → 2023-10-03 | Outpatient (CLI) | payer OTHER | LOC: M RAD 13:44 | PROVIDERS: ATTEND Nurse Practitioner Family | DX: N18.32 Chronic kidney disease, stage 3b (principal) ==

== ENCOUNTER → 2024-05-01 | Outpatient (CLI) | payer MEDICARE, OTHER ==
[~2024-05-01] MED LIST changes: +FLUO-365 OR; -FLUO20CA22 OR; -ROSU40TA4 PO; +ROSU40TA63 PO
[2024-05-01 14:24] LABS: ALBUMIN 3.5 G/DL (3.2-5.2); BILIRUBIN,TOTAL 0.4 MG/DL (0.3-1.2); CALCIUM LEVEL 9.6 MG/DL (8.3-10.6); CHOLESTEROL RISK RATIO 4.04 (<5); CREATININE FOR GFR 1.29 MG/DL (0.55-1.30); GLOMERULAR FILTRATION RATE 44.2 (>45); LDL CHOLESTEROL 81.2 MG/DL (<100); POTASSIUM SERUM 4.8 MMOL/L (3.5-5.1)
[2024-05-01 14:43] LABS: HEMOGLOBIN A1c 5.7 % (4.0-6.0)
== END ==
LOC: M WUC 09:40
PROVIDERS: ATTEND Nurse Practitioner Family
DX: I12.9 Hypertensive chronic kidney disease with stage 1 through stage 4 chronic kidney disease, or unspecified chronic kidney disease (principal); Z85.3 Personal history of malignant neoplasm of breast; F17.210 Nicotine dependence, cigarettes, uncomplicated; R73.03 Prediabetes; N18.32 Chronic kidney disease, stage 3b; G47.33 Obstructive sleep apnea (adult) (pediatric); E78.1 Pure hyperglyceridemia; F32.9 Major depressive disorder, single episode, unspecified; K21.9 Gastro-esophageal reflux disease without esophagitis; M79.7 Fibromyalgia

== ENCOUNTER → 2024-05-01 | Outpatient (REF) | payer MEDICARE, OTHER | LOC: M LAB REF 15:04 | PROVIDERS: ATTEND Nurse Practitioner Family | DX: N39.0 Urinary tract infection, site not specified (principal) ==

== ENCOUNTER → 2024-05-09 | Outpatient (REF) | payer OTHER | LOC: M SFHCCLAY 10:44 | PROVIDERS: ATTEND Physician Assistant | DX: L98.9 Disorder of the skin and subcutaneous tissue, unspecified (principal); Z87.440 Personal history of urinary (tract) infections; B07.9 Viral wart, unspecified ==

== ENCOUNTER → 2024-08-07 | Outpatient (REF) | payer OTHER ==
[~2024-08-07] MED LIST changes: -ROSU40TA63 PO; +ROSU40TA81 PO
== END ==
LOC: M LAB REF 17:11
PROVIDERS: ATTEND Nurse Practitioner Family
DX: N39.0 Urinary tract infection, site not specified (principal)

== ENCOUNTER → 2024-10-05 | Outpatient (CLI) | payer OTHER ==
[~2024-10-05] MED LIST changes: +GABA-1172 PO; -GABA-282 PO
[2024-10-05 12:41] LABS: APPEARANCE, URINE HAZY (CLEAR); BACTERIA, URINE AUTO NEGATIVE (NEGATIVE); BILIRUBIN, URINE AUTO NEGATIVE (NEGATIVE); BLOOD, URINE BLOOD NEGATIVE (NEGATIVE); COLOR, URINE YELLOW (YELLOW); GLUCOSE, URINE (UA) AUTO NEGATIVE (NEGATIVE); KETONE, URINE AUTO NEGATIVE (NEGATIVE); LEUKOCYTE ESTERASE, URINE AUTO NEGATIVE (NEGATIVE); NITRITE, URINE AUTO NEGATIVE (NEGATIVE); PROTEIN, URINE AUTO NEGATIVE (NEGATIVE); RBC, URINE AUTO 0 /HPF (0-3); SQUAMOUS EPITHELIAL CELL UR AU 9 /HPF (0-6); UROBILINOGEN, URINE AUTO 0.2 mg/dL (0.0-2.0); WBC, URINE AUTO 0 /HPF (0-3)
== END ==
LOC: M LAB 12:13
PROVIDERS: ATTEND Nurse Practitioner Family
DX: N39.44 Nocturnal enuresis (principal)

== ENCOUNTER → 2025-01-14 | Outpatient (CLI) | payer MEDICARE, OTHER ==
[~2025-01-14] MED LIST changes: +CARI-555 PO; -CARI1TAB7 PO
== END ==
LOC: M WHC 12:28
PROVIDERS: ATTEND Nurse Practitioner Family
DX: N60.91 Unspecified benign mammary dysplasia of right breast (principal); R92.333 Mammographic heterogeneous density, bilateral breasts
CPT/HCPCS: 77066; G0279

== ENCOUNTER → 2025-02-12 | Outpatient (REF) | payer MEDICARE ==
[2025-02-12 17:38] LABS: BASO % 0.3 % (0.0-1.0); EOS # 0.1 10^3/uL (0.0-0.5); EOS % 1.2 % (0.0-3.0); HEMATOCRIT 45.9 % (36.0-47.0); HEMOGLOBIN 14.8 g/dl (12.0-15.5); LYMPH # 4.3 10^3/uL (1.5-5.0); LYMPH % 41.6 % (24.0-44.0); MEAN CORPUSCULAR HEMOGLOBIN 29.8 pg (27.0-33.0); MEAN CORPUSCULAR HGB CONC 32.2 g/dl (32.0-36.5); MEAN CORPUSCULAR VOLUME 92.4 fl (80.0-96.0); MONO # 0.7 10^3/uL (0.0-0.8); NEUTROPHILS # 5.1 10^3/uL (1.5-8.5); NEUTROPHILS % 49.2 % (36.0-66.0); PLATELET COUNT, AUTOMATED 331 10^3/uL (150-450); RED BLOOD COUNT 4.97 10^6/uL (4.00-5.40); WHITE BLOOD COUNT 10.4 10^3/uL (4.0-10.0)
[2025-02-12 18:03] LABS: ALBUMIN 3.5 G/DL (3.2-5.2); BILIRUBIN,TOTAL 0.3 MG/DL (0.3-1.2); CALCIUM LEVEL 9.2 MG/DL (8.3-10.6); CHOLESTEROL RISK RATIO 4.33 (<5); CREATININE FOR GFR 1.19 MG/DL (0.55-1.30); GLOMERULAR FILTRATION RATE 48.3 (>45); HDL CHOLESTEROL 37.6 MG/DL (>40); LDL CHOLESTEROL 62.2 MG/DL (<100); NON-HDL-C 125.4 MG/DL; POTASSIUM SERUM 4.4 MMOL/L (3.5-5.1)
[2025-02-12 18:07] LABS: FERRITIN 41.2 NG/ML (7.3-270.7)
[2025-02-12 18:09] LABS: HEMOGLOBIN A1c 5.7 % (4.0-6.0)
== END ==
LOC: M SFHCCLAY 13:36
PROVIDERS: ATTEND Nurse Practitioner Family
DX: I10 Essential (primary) hypertension (principal); E78.1 Pure hyperglyceridemia; R73.03 Prediabetes; R58 Hemorrhage, not elsewhere classified; N18.32 Chronic kidney disease, stage 3b

== ENCOUNTER → 2025-06-25 | Outpatient (REF) | payer MEDICARE ==
[~2025-06-25] MED LIST changes: +LIDO1ADH93 TD; -LIDO5DIS41 TD
[2025-06-25 19:30] LABS: CALCIUM LEVEL 9.7 MG/DL (8.3-10.6); CARBON DIOXIDE LEVEL 28.0 MMOL/L (20-31); CHLORIDE LEVEL 101.0 MMOL/L (98-107); CREATININE FOR GFR 1.28 MG/DL (0.55-1.30); GLOMERULAR FILTRATION RATE 46.2 (>45); PHOSPHORUS LEVEL 2.9 MG/DL (2.4-5.1); POTASSIUM SERUM 4.2 MMOL/L (3.5-5.1); SODIUM LEVEL 141.0 MMOL/L (136-145)
== END ==
LOC: M LABWUC 18:25
PROVIDERS: ATTEND Nurse Practitioner Family
DX: N18.32 Chronic kidney disease, stage 3b (principal)

== ENCOUNTER → 2025-06-30 | Outpatient (REF) | payer MEDICARE | LOC: M SFHCCLAY 17:26 | PROVIDERS: ATTEND Nurse Practitioner Family | DX: R30.0 Dysuria (principal) ==

== ENCOUNTER → 2025-08-19 | Outpatient (REF) | payer MEDICARE, OTHER ==
[2025-08-19 18:50] LABS: APPEARANCE, URINE CLEAR (CLEAR); BACTERIA, URINE AUTO NEGATIVE (NEGATIVE); BILIRUBIN, URINE AUTO NEGATIVE (NEGATIVE); BLOOD, URINE BLOOD NEGATIVE (NEGATIVE); GLUCOSE, URINE (UA) AUTO NEGATIVE (NEGATIVE); KETONE, URINE AUTO NEGATIVE (NEGATIVE); LEUKOCYTE ESTERASE, URINE AUTO NEGATIVE (NEGATIVE); NITRITE, URINE AUTO NEGATIVE (NEGATIVE); PROTEIN, URINE AUTO NEGATIVE (NEGATIVE); RBC, URINE AUTO 0 /HPF (0-3); SPECIFIC GRAVITY URINE AUTO 1.009 (1.002-1.035); SQUAMOUS EPITHELIAL CELL UR AU 1 /HPF (0-6); UROBILINOGEN, URINE AUTO 0.2 mg/dL (0.0-2.0); WBC, URINE AUTO 0 /HPF (0-3)
== END ==
LOC: M LAB REF 17:39
PROVIDERS: ATTEND Nurse Practitioner Family
DX: N39.0 Urinary tract infection, site not specified (principal)